=== PATIENT | female | born 1930 | race Caucasian/White ===

== ENCOUNTER 2016-08-30 14:13 | Observation (INO) ==
--- NOTE | 2016-08-30 15:09 | Emergency Department Note ---
Disposition Clinical Impression: Fracture of right clavicle Qualifiers: Encounter type: initial encounter Clavicle location: lateral end Fracture type : closed Fracture alignment: nondisplaced Qualified Code(s): S42.034A - Nondisplaced fracture of lateral end of right clavicle, initial encounter for closed fracture Fall Qualifiers: Encounter type: initial encounter Qualified Code(s): W19.XXXA - Unspecified fall, initial encounter Scalp hematoma Qualifiers: Encounter type: initial encounter Qualified Code(s): S00.03XA - Contusion of scalp, initial encounter Disposition: Admitted As Inpatient Condition: Good Fall HPI - General Chief Complaint: ED Fall Stated Complaint: fall Time Seen by Provider: 08/30/16 14:23 Source: patient, EMS Nursing Notes Reviewed: Yes Vital Signs Reviewed: Yes - History of Present Illness HPI Narrative: 85-year-old female with a history of end-stage renal disease presents to the emergency department with a chief complaint of head injury, shoulder injury after fall. Just prior to arrival she had just finished dialysis, she was walking out of the building and fell to the ground. She states she woke up on the ground and had a headache and right shoulder pain. She reports dizziness and near syncope after dialysis and always has to wait about 20-30 minutes before she leaves. She denies any preceding symptoms that she remember such as shortness of breath, chest pain or lightheadedness. Currently she states she has pain but denies any chest pain, shortness of breath, nausea, numbness or weakness in the extremities. - Related Data Home Medications Medication Instructions Recorded Confirmed Calcium Acetate [Phos-LO] 1,334 mg PO TIDWM 08/30/16 08/30/16 Calcium Carbonate [Tums] 1,000 mg PO TIDWM 08/30/16 08/30/16 Cetirizine HCl [Zyrtec] 10 mg PO DAILY 08/30/16 08/30/16 Docusate [Colace] 100 mg PO DAILY PRN 08/30/16 08/30/16 Famotidine [Pepcid] 20 mg PO DAILY 08/30/16 08/30/16 HYDROcodone/Acet 5/325 mg [[place] 1 tab PO DAILY 08/30/16 08/30/16 5-325 mg] Lidocaine Patch [Lidoderm 5% patch] 1 each TP DAILY 08/30/16 08/30/16 Loratadine [Claritin] 10 mg PO DAILY 08/30/16 08/30/16 Meclizine HCl [Verticalm] 25 mg PO TID PRN 08/30/16 08/30/16 Melatonin 5 mg PO HS 08/30/16 08/30/16 Ondansetron HCl [Zofran] 4 mg PO Q8H PRN 08/30/16 08/30/16 Pantoprazole Sodium [Protonix] 40 mg PO DAILY 08/30/16 08/30/16 Renal Vitamin [Renal Caps Softgel] 1 mg PO DAILY 08/30/16 08/30/16 Trospium Chloride 20 mg PO HS 08/30/16 08/30/16 Zinc Sulfate 220 mg PO DAILY 08/30/16 08/30/16 Allergies Allergy/AdvReac Type Severity Reaction Status Date / Time Erythromycin Base Allergy See Verified 01/07/16 17:44 Comments Penicillins Allergy See Verified 12/27/15 17:38 Comments Sulfa (Sulfonamide Allergy See Verified 01/07/16 17:44 Antibiotics) Comments All systems ED: reviewed and negative except as stated. Eyes: Denies: vision change Cardiovascular: Denies: chest pain, dyspnea on exertion Gastrointestinal: Denies: abdominal pain, nausea, vomiting Musculoskeletal: Denies: back pain, neck pain Neurological: Reports: headache. Denies: weakness, numbness Fall PMH - Past Medical History Medical history: Reports: dialysis, renal disease Psychiatric history: Reports: no psych history - Social History Smoking Status: Never smoker Alcohol use: Reports: none Drug use: Reports: none Physical Exam General: Appears well, alert and oriented x 3 Cardiovascular: Regular rate and rhythm. S1, S2. No murmurs, rubs or gallops. Neck: No midline tenderness, no step-off or deformity, pain with range of motion Respiratory: Breath sounds clear bilaterally. No wheezing, rales or rhonchi. No resp distress Abdomen: Soft, nontender. No guarding, rebound or rigidity. No bruising or signs of injury Eyes: Conjunctiva clear, pupils symmetric and reactive, no nystagmus HENT: She has a hematoma to the right frontal/temporal area. There is no overlying laceration. There is a small abrasion. No swelling around the eyes or behind the ears. No facial tenderness. Neuro: Cranial nerves intact. 5/5 upper and lower a strength throughout. She has right shoulder pain and is able to squeeze her hand and flex at the elbow was somewhat limited testing at the shoulder due to pain. Sensation is symmetric and intact bilaterally Vascular: Strong radial pulses bilaterally with normal cap refill throughout Musculoskeletal: She has prominence of the right shoulder with tenderness. No clavicular tenderness. No chest wall tenderness. No mid humerus, elbow or wrist tenderness. There is no scapular tenderness. No midline cervical or lumbar tenderness. No abrasions, ecchymosis or signs of trauma. Skin: No lesions. No diaphoresis. Normal turgor. Normal color Psych: Appropriate - General Limitations: no limitations General appearance: alert Course Vital Signs Temperature 97.9 F 08/30/16 14:18 Pulse Rate 67 08/30/16 14:18 Respiratory Rate 18 08/30/16 14:18 Blood Pressure 163/79 08/30/16 14:18 O2 Sat by Pulse Oximetry 94 08/30/16 14:18 Temperature 98 F 08/30/16 18:53 Pulse Rate 73 08/30/16 18:53 Respiratory Rate 18 08/30/16 18:53 Blood Pressure 195/82 08/30/16 18:53 O2 Sat by Pulse Oximetry 100 08/30/16 18:53 Oxygen Delivery Oxygen Delivery Room Air Fall - Lab Data Result diagrams: 08/30/16 15:24 08/30/16 15:24 - EKG Data EKG attestation: Yes I reviewed and interpreted this EKG. EKG shows normal: sinus rhythm, axis, intervals, QRS complexes, ST-T waves Rate: normal Rhythm: NSR Attestation Statement - Attestation Attestation: I examined this patient and my medical decision-making was reviewed with the PERSONAL INJURY ATTORNEY/PA/Advanced Practice Nurse/Resident Physician. I agree with the documented findings, disposition and treatment plan as described except to the extent set forth below. 85-year-old female brought to the ED because of injuries from a fall. She completed dialysis and when she tried ambulate she became lightheaded and dizzy then fell to floor. She struck her right side of her head as well as her right shoulder on the ground. She reports severe pain to the right shoulder. Complains of mild headache as well. No neck pain. Denies chest pain or dyspnea. No palpitations. Denies pain to her chest, abdomen, pelvis or lower extremities. Elderly female in no apparent distress. Appears uncomfortable. Hematoma to the right frontal parietal scalp. Oropharynx clear. Neck is nontender. Trachea midline. Chest clear to auscultation bilaterally. Abdomen soft and nontender. She does have tenderness localized to the right acromioclavicular region without palpable deformity. Chest wall is nontender. Pelvis and hips are nontender. Lower extremities unremarkable. She is found to have comminuted fracture of the distal right clavicle. CT of her head was negative. She is unable to independently maneuver or ambulate due to the clavicle fracture. She will be admitted for initiation of physical therapy, orthopedic consultation and possible placement into an extended care facility.
[2016-08-30 15:33] LABS: Basophils % 0.6 %; Eosinophils # 0.1 K/mcL (0.0-0.6); Eosinophils % 1.7 %; Hematocrit 31.3 % (35.3-44.9); Hemoglobin 10.4 g/dL (11.5-15.4); Immature Granulocytes % 0.6 % (0-4); Lymphocytes # 1.2 K/mcL (0.6-4.6); Lymphocytes % 23.9 %; Mean Corpuscular HGB Conc 33.2 g/dL (31.6-35.5); Mean Corpuscular Hemoglobin 28.7 pg (28.0-33.3); Mean Corpuscular Volume 86.5 fL (83.0-100.0); Mean Platelet Volume 10.4 fL (9.4-12.4); Monocytes # 0.6 K/mcL (0.0-1.3); Monocytes % 11.9 %; Neutrophils # 3.2 K/mcL (1.6-8.9); Platelet Count 151 K/mcL (140-400); Red Blood Count 3.62 M/mcL (3.82-4.97); Red Cell Distribution Width 14.8 % (11.5-14.5); Segmented Neutrophils % 61.3 %
[2016-08-30 15:44] LABS: Calcium 8.5 mg/dL (8.6-10.8); Potassium 3.3 mEq/L (3.5-4.5)
[2016-08-30] MEDS ORDERED: *HR* HYDROcodone/Acet 5/325 mg TABLET PO ONE (15:50)
[2016-08-30 15:56] LABS: Prothrombin Time 11.3 Seconds (9.4-12.1)
[2016-08-30] MEDS ORDERED: *HR* HYDROmorphone (PF) 1 MG/ML SYRINGE IVP ONE (17:15)
--- NOTE | 2016-08-30 19:00 | Internal Med History&Physical ---
Date of Encounter: 08/30/16 Time of Encounter: 18:55 Assessment and Plan (1) Clavicle fracture Current visit: Yes Status: Acute Mild comminuted right-sided clavicular fracture. Orthopedics has been consulted, will see the patient tomorrow. Do not anticipate any procedure or surgery at this time. pain management will follow ortho recommendations will order PT/OT Qualifiers: Encounter type: initial encounter Clavicle location: lateral end Fracture type: closed Fracture alignment: nondisplaced Laterality: right Qualified Code(s): S42.034A - Nondisplaced fracture of lateral end of right clavicle, initial encounter for closed fracture (2) ESRD (end stage renal disease) on dialysis Current visit: Yes Status: Acute had HD today. follows with DR. Cleaning. will consult renal for maintenance HD if she stays till sunday. (3) Dizziness Current visit: Yes Status: Acute dizziness post HD which is usual for her. orthostasis negative, BP stable. CT head was done that is negative no focal neuro defecits, will observe for now. (4) HTN (hypertension) Current visit: Yes Status: Acute BP noted to be high thisevening. I do not see any BP meds on the home meds list will start amlod 5 mg for now. will keep hydralazine prn. Qualifiers: Hypertension type: essential hypertension Qualified Code(s): I10 - Essential (primary) hypertension Internal Medicine - H&P: HPI Chief complaint: fall Admitted From: Home Plans for Post Hospital Care: Home History of present illness: Ms. Lynne is a 85 year old female with a history of end-stage renal disease on HD presents to the emergency department with a chief complaint of head injury, shoulder injury after fall . Just prior to arrival she had just finished dialysis, she was walking out of the building and fell to the ground. She states she woke up on the ground and had a headache and right shoulder pain. She reports dizziness and near syncope after dialysis and always has to wait about 20-30 minutes before she leaves. She denies any preceding symptoms that she remember such as shortness of breath, chest pain or lightheadedness. Currently she states she has pain but denies any chest pain, shortness of breath , nausea, numbness or weakness in the extremities. The dizziness after HD is usual for her. she follows dr. Cleaning and has M-W- F HD. she lives by herself at home and has refused HH all this time and the grand daughter at the bedside is requesting for placement as its not safe for her to stay by herself. workup at the ED shows right clavicular fracture and rt. sided hematoma. Past Med Surg Social Fam HX - Past Medical History Medical history: dialysis, renal disease Psychiatric history: no psych history - Social History Smoking Status: Never smoker Smokeless Tobacco Status: No Alcohol use: none Drug use: none Internal Medicine - H&P: Meds Calcium Acetate [Phos-LO] 1,334 mg PO TIDWM 08/30/16 [History] Calcium Carbonate [Tums] 1,000 mg PO TIDWM 08/30/16 [History] Cetirizine HCl [Zyrtec] 10 mg PO DAILY 08/30/16 [History] Docusate [Colace] 100 mg PO DAILY PRN 08/30/16 [History] Famotidine [Pepcid] 20 mg PO DAILY 08/30/16 [History] HYDROcodone/Acet 5/325 mg [[place] 5-325 mg] 1 tab PO DAILY 08/30/16 [History] Lidocaine Patch [Lidoderm 5% patch] 1 each TP DAILY 08/30/16 [History] Loratadine [Claritin] 10 mg PO DAILY 08/30/16 [History] Meclizine HCl [Verticalm] 25 mg PO TID PRN 08/30/16 [History] Melatonin 5 mg PO HS 08/30/16 [History] Ondansetron HCl [Zofran] 4 mg PO Q8H PRN 08/30/16 [History] Pantoprazole Sodium [Protonix] 40 mg PO DAILY 08/30/16 [History] Renal Vitamin [Renal Caps Softgel] 1 mg PO DAILY 08/30/16 [History] Trospium Chloride 20 mg PO HS 08/30/16 [History] Zinc Sulfate 220 mg PO DAILY 08/30/16 [History] Allergies Erythromycin Base Allergy (Verified 01/07/16 17:44) See Comments Penicillins Allergy (Verified 12/27/15 17:38) See Comments Sulfa (Sulfonamide Antibiotics) Allergy (Verified 01/07/16 17:44) See Comments All Systems PM: A 10-system review of systems was performed and is negative for pertinent findings except as documented above in the HPI. - Constitutional Constitutional: no chills, no fever(s), no night sweats - EENT Eyes: no change in vision, no discharge, no pain, no photophobia Ears: no ear discharge, no ear pain, no tinnitus Nose, mouth and throat: no dysphagia, no nasal discharge, no neck pain, no sore throat - Breasts Breasts: as per HPI - Cardiovascular Cardiovascular ROS IM: as per HPI - Respiratory Respiratory: as per HPI - Gastrointestinal Gastrointestinal: as per HPI - Genitourinary Genitourinary: as per HPI - Constitutional Vitals: Temp Pulse Resp BP Pulse Ox 98 F 73 18 195/82 100 08/30/16 18:53 08/30/16 18:53 08/30/16 18:53 08/30/16 18:53 08/30/16 18:53 General appearance: Present: A&O X 3, no acute distress Exam: neck- supple has a hematoma at the right side of the forehead, no active bleeding. chest- b/l clear, tender right side of the shoulder CVS-s1 and s2, no mr/g abd-soft, non tender, bs are present ext- no edema neuro- no focal defecits, alert and awake Internal Med - H&P Results - Labs CBC & Chem 7: 08/30/16 15:24 08/30/16 15:24
[2016-08-30] MEDS ORDERED: Naloxone 0.4 MG/ML INJ IVP PRN (19:14)
[2016-08-30] MEDS: amLODIPine 5 MG TABLET PO SCH (20:11)
[2016-08-30] MEDS: Ondansetron 4 MG/2 ML VIAL IVP PRN (20:39)
[2016-08-31] MEDS ORDERED: Acetaminophen 325 MG TABLET PO PRN (00:13)
[2016-08-31] MEDS: *HR* OxyCODONE/APAP 7.5/325 TABLET PO PRN ×3 (00:24→23:23)
[2016-08-31 04:46] LABS: Basophils % 0.5 %; Eosinophils # 0.1 K/mcL (0.0-0.6); Eosinophils % 1.4 %; Hemoglobin 10.2 g/dL (11.5-15.4); Immature Granulocytes % 0.4 % (0-4); Lymphocytes # 1.5 K/mcL (0.6-4.6); Lymphocytes % 26.6 %; Mean Corpuscular HGB Conc 31.9 g/dL (31.6-35.5); Mean Corpuscular Hemoglobin 27.9 pg (28.0-33.3); Mean Corpuscular Volume 87.7 fL (83.0-100.0); Monocytes # 0.7 K/mcL (0.0-1.3); Monocytes % 11.7 %; Neutrophils # 3.3 K/mcL (1.6-8.9); Platelet Count 162 K/mcL (140-400); Red Blood Count 3.65 M/mcL (3.82-4.97); Red Cell Distribution Width 14.7 % (11.5-14.5); Segmented Neutrophils % 59.4 %
[2016-08-31 04:55] LABS: Calcium 8.6 mg/dL (8.6-10.8); Magnesium 1.7 mg/dL (1.6-2.6); Phosphorous 5.2 mg/dL (2.3-4.7); Potassium 4.1 mEq/L (3.5-4.5)
[2016-08-31] MEDS: *HR* Heparin 5,000 UNIT/ML VIAL SQ SCH ×2 (05:48→17:05)
--- NOTE | 2016-08-31 08:55 | Orthopedic Consult Note ---
Date of Encounter: 08/31/16 Time of Encounter: 08:51 Assessment and Plan (1) Clavicle fracture Current Visit: Yes Status: Acute I did discuss the diagnosis in detail the patient. She has a right distal clavicle fracture after a fall. My recommendation was for nonoperative management in the form of a sling for comfort without a swath. My recommendation is also for physical and occupational therapy, and nonweightbearing to the right upper extremity. Follow up in 1 week at [facility] for repeat x-ray of the right shoulder. She will likely require short-term rehabilitation facility depending on how she does with therapy. I will sign off at this point will be available at any time if needed. Qualifiers: Encounter type: initial encounter Clavicle location: lateral end Fracture type: closed Fracture alignment: nondisplaced Laterality: right Qualified Code(s): S42.034A - Nondisplaced fracture of lateral end of right clavicle, initial encounter for closed fracture History of Present Illness HPI: Ms. Lynne is a 85 year old female who has end-stage renal disease on dialysis. She was admitted to the hospitalist yesterday after a fall while walking out of dialysis. It is unclear if she had a syncopal episode, though she does admit to dizziness. She did not sustain a contusion on the right side of her head as well as a nondisplaced distal clavicle fracture. I was asked to assist in the evaluation in the management of the clavicle fracture. On my evaluation the patient complains of isolated pain to the right shoulder with worsening on movement. The pain is described as sharp and significant. There is no associated numbness or tingling. No other associated signs or symptoms are modifying factors. Currently she denies any headaches. She denies any left upper extremity pain and bilateral lower extremity pain. Past Med Surg Social Fam HX - Past Medical History Medical history: dialysis, renal disease Psychiatric history: no psych history - Social History Smoking Status: Never smoker Smokeless Tobacco Status: No Alcohol use: none Drug use: none Medications and Allergies Calcium Acetate [Phos-LO] 1,334 mg PO TIDWM 08/30/16 [History] Calcium Carbonate [Tums] 1,000 mg PO TIDWM 08/30/16 [History] Cetirizine HCl [Zyrtec] 10 mg PO DAILY 08/30/16 [History] Docusate [Colace] 100 mg PO DAILY PRN 08/30/16 [History] Famotidine [Pepcid] 20 mg PO DAILY 08/30/16 [History] HYDROcodone/Acet 5/325 mg [[place] 5-325 mg] 1 tab PO DAILY 08/30/16 [History] Lidocaine Patch [Lidoderm 5% patch] 1 each TP DAILY 08/30/16 [History] Loratadine [Claritin] 10 mg PO DAILY 08/30/16 [History] Meclizine HCl [Verticalm] 25 mg PO TID PRN 08/30/16 [History] Melatonin 5 mg PO HS 08/30/16 [History] Ondansetron HCl [Zofran] 4 mg PO Q8H PRN 08/30/16 [History] Pantoprazole Sodium [Protonix] 40 mg PO DAILY 08/30/16 [History] Renal Vitamin [Renal Caps Softgel] 1 mg PO DAILY 08/30/16 [History] Trospium Chloride 20 mg PO HS 08/30/16 [History] Zinc Sulfate 220 mg PO DAILY 08/30/16 [History] Allergies Erythromycin Base Allergy (Verified 01/07/16 17:44) See Comments Penicillins Allergy (Verified 12/27/15 17:38) See Comments Sulfa (Sulfonamide Antibiotics) Allergy (Verified 01/07/16 17:44) See Comments All Systems Reviewed: Constitutional and musculoskeletal systems were reviewed and are negative unless otherwise stated in history of present illness. Physical Exam - Constitutional Vitals: Temp Pulse Resp BP Pulse Ox 98.2 F 59 16 152/52 92 08/31/16 07:42 08/31/16 07:42 08/31/16 07:42 08/31/16 07:42 08/31/16 07:42 Constitutional -Vitals reviewed -The patient is well developed and well nourished. -Mood is pleasant. -The patient is well groomed. Psychiatric -The patient is fully alert and oriented x 3. Head: -Contusion noted to the right cranial region. Respiratory: -Respiratory effort normal Abdomen: -Soft abdomen -Non tender -Non distended: Left upper extremity: -No deformities. The overlying skin is intact. No obvious signs of acute trauma. -No tenderness to palpation throughout. -No significant pain with passive motion of the shoulder, elbow, wrist, and fingers within the limits of the bed. -Able to make an "OK" sign, cross the index and long fingers, and extend the thumb. -Sensation grossly intact to light touch throughout the median, radial, and ulnar distributions. -Radial pulse is present; Fingers have good capillary refill. Right upper extremity: -No deformities. The overlying skin is intact. No obvious signs of acute trauma. -Significant tenderness to palpation over the distal clavicular region. -Distal clavicular pain with any shoulder motion. -No significant pain with passive motion of the elbow, wrist, and fingers within the limits of the bed. -Able to make an "OK" sign, cross the index and long fingers, and extend the thumb. -Sensation grossly intact to light touch throughout the median, radial, and ulnar distributions. -Radial pulse is present; Fingers have good capillary refill. Left lower extremity: -No deformities. The overlying skin is intact. No obvious signs of acute trauma. -No tenderness to palpation throughout. -No pain with passive motion of the hip, knee, ankle, and toes within the limits of the bed. -No pain with axial loading of the thigh. -Able to dorsiflex and plantarflex the ankle and toes. -Sensation is grossly intact to light touch throughout the sural, saphenous, superficial peroneal, and deep peroneal distributions. -Toes have good capillary refill. Right lower extremity: -No deformities. The overlying skin is intact. No obvious signs of acute trauma. -No tenderness to palpation throughout. -No pain with passive motion of the hip, knee, ankle, and toes within the limits of the bed. -No pain with axial loading of the thigh. -Able to dorsiflex and plantarflex the ankle and toes. -Sensation is grossly intact to light touch throughout the sural, saphenous, superficial peroneal, and deep peroneal distributions. -Toes have good capillary refill. Diagnostic Imaging: I did personally review and interpret x-rays of the right shoulder which do show a fracture of the distal clavicle without significant displacement. Results - Labs Result Diagrams: 08/31/16 03:41 08/31/16 03:41 Labs: Abnormal lab results RBC 3.65 M/mcL (3.82-4.97) L 06/01/17 03:41 Hgb 10.2 g/dL (11.5-15.4) L 08/31/16 03:41 Hct 32.0 % (35.3-44.9) L 08/31/16 03:41 MCH 27.9 pg (28.0-33.3) L 08/31/16 03:41 RDW 14.7 % (11.5-14.5) H 08/31/16 03:41 Chloride 97 mEq/L (98-109) L 08/31/16 03:41 Carbon Dioxide 34 mEq/L (19-29) H 08/31/16 03:41 BUN 28 mg/dL (7-20) H 08/31/16 03:41 Creatinine 3.96 mg/dL (0.57-1.11) H 08/31/16 03:41 Est GFR ( Amer) 13 (> 60) L 08/31/16 03:41 Est GFR (Non-Af Amer) 11 (> 60) L 08/31/16 03:41 POC Glucose 114 (58-89) H 08/30/16 14:23 Phosphorus 5.2 mg/dL (2.3-4.7) H 08/31/16 03:41 H & H 08/31/16 Range/Units 03:41 Hgb 10.2 L (11.5-15.4) g/dL Hct 32.0 L (35.3-44.9) % All other labs normal. Consult Discharge Plan - Plan Referrals: Rosa Gamez MD [Primary Care Provider] - (Web requested 08/30/16)
[2016-08-31] MEDS: amLODIPine 5 MG TABLET PO SCH (09:27)
--- NOTE | 2016-08-31 10:32 | Nephrology Consult Note ---
Date of Encounter: 08/31/16 Time of Encounter: 10:00 Assessment and Plan (1) ESRD (end stage renal disease) on dialysis Current Visit: Yes Status: Acute S/P fall with fractured right clavicle. Right head contusion, MR of head this AM , results pending. No HD today. If remains in patient, will dialyze tomorrow, keeping MWF schedule. History of Present Illness - Reason for Consult end stage renal disease - History of Present Illness Ms. Lynne is a 85 year old female with ESRD who dialyzes at [place] on MWF. Last dialysis yesterday. Other PMH-HTN. Ms. Lynne was transported to [place] from dialysis unit parking lot. She states became dizzy after dialysis and next was waking up on ground with people around her. She complained of right side head and right shoulder pain. She denied any chest pain, SOB, or numbness or weakness in extremities. Xray shows nondisplaced fracture of right clavicle. She is going this morning for MR of head and xray of right thumb/hand. Past Med Surg Social Fam HX - Past Medical History Medical history: dialysis, renal disease Psychiatric history: no psych history - Social History Smoking Status: Never smoker Smokeless Tobacco Status: No Alcohol use: none Drug use: none Medications and Allergies Calcium Acetate [Phos-LO] 1,334 mg PO TIDWM 08/30/16 [History] Calcium Carbonate [Tums] 1,000 mg PO TIDWM 08/30/16 [History] Cetirizine HCl [Zyrtec] 10 mg PO DAILY 08/30/16 [History] Docusate [Colace] 100 mg PO DAILY PRN 08/30/16 [History] Famotidine [Pepcid] 20 mg PO DAILY 08/30/16 [History] HYDROcodone/Acet 5/325 mg [[place] 5-325 mg] 1 tab PO DAILY 08/30/16 [History] Lidocaine Patch [Lidoderm 5% patch] 1 each TP DAILY 08/30/16 [History] Loratadine [Claritin] 10 mg PO DAILY 08/30/16 [History] Meclizine HCl [Verticalm] 25 mg PO TID PRN 08/30/16 [History] Melatonin 5 mg PO HS 08/30/16 [History] Ondansetron HCl [Zofran] 4 mg PO Q8H PRN 08/30/16 [History] Pantoprazole Sodium [Protonix] 40 mg PO DAILY 08/30/16 [History] Renal Vitamin [Renal Caps Softgel] 1 mg PO DAILY 08/30/16 [History] Trospium Chloride 20 mg PO HS 08/30/16 [History] Zinc Sulfate 220 mg PO DAILY 08/30/16 [History] Allergies Erythromycin Base Allergy (Verified 01/07/16 17:44) See Comments Penicillins Allergy (Verified 12/27/15 17:38) See Comments Sulfa (Sulfonamide Antibiotics) Allergy (Verified 01/07/16 17:44) See Comments Review of Systems All Systems: reviewed and no additional remarkable complaints except as stated Exam - Vital Signs Vital signs: Initial Vital Signs Temp Pulse Resp BP Pulse Ox 97.9 F 67 18 163/79 94 08/30/16 14:18 08/30/16 14:18 08/30/16 14:18 08/30/16 14:18 08/30/16 14:18 Vital Signs - Last 8 Hours Temp Pulse Resp BP Pulse Ox 08/31/16 07:42 98.2 F 59 16 152/52 92 08/31/16 03:35 98.0 F 63 16 157/78 95 Intake and Output 08/30/16 08/31/16 08/31/16 23:59 07:59 15:59 Output Total 150 / 150 Balance -150 / -150 Output: Urine 150 / 150 Other: Weight 77.1 kg 78.8 kg Patient Weight 08/31/16 23:59 Weight 78.8 kg - General Appearance General appearance: well-developed, well-nourished, appears started age EENT: mucous membranes moist Neck: no JVD Respiratory: clear Cardiology: no edema, regular rate, regular rhythm Gastrointestinal: normoactive bowel sounds, no tenderness Integumentary: warm and dry Neurologic: alert and oriented x3 Psychiatric: mood/affect appropriate, cooperative Results - Lab Results 08/31/16 03:41 08/31/16 03:41 Most recent lab results Calcium 8.6 mg/dL (8.6-10.8) 08/31/16 03:41 Phosphorus 5.2 mg/dL (2.3-4.7) H 08/31/16 03:41 Magnesium 1.7 mg/dL (1.6-2.6) 08/31/16 03:41 Consult Discharge Plan - Plan Referrals: Rosa Gamez MD [Primary Care Provider] - (Web requested 08/30/16)
[2016-08-31] MEDS: Calcium Acetate 667 MG CAPSULE PO SCH ×2 (11:55→17:06)
[2016-08-31] MEDS: *HR* Morphine 2 MG/ML SYRINGE IVP PRN (11:55)
--- NOTE | 2016-08-31 12:35 | Electrocardiograph Report ---
[place] [id number] Test Date: 2016-08-30 Pat Name: Glory Lynne Department: 102 Room: 2A23 Gender: F Manager Loan: Holly : 1930 Requested By: Sean Santana Order Number: [id number] Reading MD: Lesia Louise Measurements Intervals [place] Rate: 71 P: 30 MO: 163 QRS: 12 QRSD: 110 T: 25 QT: 476 QTc: 498 Interpretive Statements SINUS RHYTHM PROLONGED QT INTERVAL Electronically Signed On 08-31-2016 12:33:43 EDT by Lesia Louise
--- NOTE | 2016-08-31 13:23 | Orthopedics Progress Note ---
Date of Encounter: 08/31/16 Time of Encounter: 13:18 - Assessment and Plan (1) Clavicle fracture Current Visit: Yes Status: Acute I did discuss the diagnosis in detail the patient. She has a right distal clavicle fracture after a fall. My recommendation was for nonoperative management in the form of a sling for comfort without a swath. My recommendation is also for physical and occupational therapy, and nonweightbearing to the right upper extremity. Follow up in 1 week at [facility] for repeat x-ray of the right shoulder. She will likely require short-term rehabilitation facility depending on how she does with therapy. I will sign off at this point will be available at any time if needed. Qualifiers: Encounter type: initial encounter Clavicle location: lateral end Fracture type: closed Fracture alignment: nondisplaced Laterality: right Qualified Code(s): S42.034A - Nondisplaced fracture of lateral end of right clavicle, initial encounter for closed fracture Subjective Interval history: S: On secondary survey, the patient is now comlaining of right thumb pain since her fall, but not nearly as much as the right shoulder. 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 The right hand now has worse pain in the thumb metacarpophalangeal joint since the fall. She indicates that she had not noticed it since she is focused on the shoulder. O: Evaluation of the right hand does show mild swelling over the thumb. There is diffuse tenderness to palpation over the right thumb metacarpophalangeal joint. Tenderness is mostly along the ulnar aspect of this joint. The joint was not stressed. She is able to flex and extend the thumb without issue and without significant pain. The fingertips are all sensate and well-perfused. The patient can actively flex and extend all digits, extend the thumb, cross the index and long fingers, make an okay sign, and oppose the thumb. Radial artery pulses 2+. Diagnostic Imaging: I did personally review and interpret x-rays of the right hand which do show a small bony avulsion along the proximal ulnar aspect of the thumb proximal phalanx without significant displacement. Also noted is significant arthritic change. A: Avulsion from the right thumb proximal phalanx ulnar base with minimal displacement; of note she also has a nondisplaced medial distal clavicle fracture being managed nonoperatively. P: I did discuss the diagnosis in detail the patient. She does have a small evulsion fracture from the base of the right thumb proximal phalanx along the ulnar side. I did discuss treatment options including cast immobilization versus reduction and internal fixation. Given the minimal displacement, my recommendation at this point is for cast immobilization. We will place her in a short arm thumb spica cast and I will see her in the office in one week for a repeat clinical and radiographic reevaluation the check for displacement. Avoid aggressive activities with the right upper extremity. Objective Vital signs: Vital Signs Temp Pulse Resp BP Pulse Ox 08/31/16 11:44 98.0 F 66 18 156/66 100 08/31/16 07:42 98.2 F 59 16 152/52 92 08/31/16 03:35 98.0 F 63 16 157/78 95 08/30/16 23:13 98.2 F 70 18 150/69 93 08/30/16 20:23 71 179/91 08/30/16 20:12 97.6 F 76 16 190/91 94 08/30/16 18:53 98 F 73 18 195/82 100 08/30/16 18:11 18 173/83 08/30/16 17:55 71 18 173/83 96 Intake and Output 08/30/16 08/31/16 08/31/16 23:59 07:59 15:59 Intake Total 240 / 240 Output Total 150 / 150 Balance -150 / -150 240 / 240 Intake: Oral 240 / 240 Output: Urine 150 / 150 Other: Meal Lunch Percent of Meal Consumed 100% Weight 77.1 kg 78.8 kg Blood Glucose* 102 Patient Weight 08/31/16 23:59 Weight 78.8 kg - Labs CBC & BMP: 08/31/16 03:41 08/31/16 03:41 Labs: Abnormal lab results RBC 3.65 M/mcL (3.82-4.97) L 08/31/16 03:41 Hgb 10.2 g/dL (11.5-15.4) L 08/31/16 03:41 Hct 32.0 % (35.3-44.9) L 08/31/16 03:41 MCH 27.9 pg (28.0-33.3) L 08/31/16 03:41 RDW 14.7 % (11.5-14.5) H 08/31/16 03:41 Chloride 97 mEq/L (98-109) L 08/31/16 03:41 Carbon Dioxide 34 mEq/L (19-29) H 08/31/16 03:41 BUN 28 mg/dL (7-20) H 08/31/16 03:41 Creatinine 3.96 mg/dL (0.57-1.11) H 08/31/16 03:41 Est GFR ( Amer) 13 (> 60) L 08/31/16 03:41 Est GFR (Non-Af Amer) 11 (> 60) L 08/31/16 03:41 POC Glucose 102 (58-89) H 08/31/16 11:45 Phosphorus 5.2 mg/dL (2.3-4.7) H 08/31/16 03:41 Consult Discharge Plan - Plan Referrals: Rosa Gamez MD [Primary Care Provider] - 09/08/16 10:00 am (Web requested 08/30/16)
--- NOTE | 2016-08-31 16:20 | Internal Med Progress Note ---
Date of Encounter: 08/31/16 Time of Encounter: 10:16 - Assessment and plan (1) Fall Current Visit: Yes Status: Acute Assessment and plan: appears to be a mechanical fall PT eval recommends SNF Clavicle fracture and right thumb fracture: Ortho eval appreciated, supportive care, no acute surgical intervention recommended. pain control acute vision change: MRI brain shows no acute abnormality. Mental status at baseline. Neurological exam negative apart from the pupillary constriction noted on the right pupil. Will obtain neurology evaluation (will obtain MRA head and neck w/o contrast to r/o any acute aneurysm, carotid doppler) Dizziness: resolved at this time Qualifiers: Encounter type: initial encounter Qualified Code(s): W19.XXXA - Unspecified fall, initial encounter (2) Clavicle fracture Current Visit: Yes Status: Acute Qualifiers: Encounter type: initial encounter Clavicle location: lateral end Fracture type: closed Fracture alignment: nondisplaced Laterality: right Qualified Code(s): S42.034A - Nondisplaced fracture of lateral end of right clavicle, initial encounter for closed fracture (3) ESRD (end stage renal disease) on dialysis Current Visit: Yes Status: Chronic Assessment and plan: renal eval appreciated 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 started Phoslo due to hyperphosphatemia (4) HTN (hypertension) Current Visit: Yes Status: Acute Assessment and plan: noted to be hypertensive worsened secondary to pain will continue pain medications continue home meds hydralazine 10mg IVP q6h PRN SBP>160 will closely monitor Qualifiers: Hypertension type: essential hypertension Qualified Code(s): I10 - Essential (primary) hypertension (5) Fracture of right clavicle Current Visit: Yes Status: Acute Qualifiers: Encounter type: initial encounter Clavicle location: lateral end Fracture type: closed Fracture alignment: nondisplaced Qualified Code(s): S42.034A - Nondisplaced fracture of lateral end of right clavicle, initial encounter for closed fracture (6) Scalp hematoma Current Visit: Yes Status: Acute Qualifiers: Encounter type: initial encounter Qualified Code(s): S00.03XA - Contusion of scalp, initial encounter - Subjective Interval history: Patient seen and examined at bedside. Patient resting in bed and reports of acute change in her vision this morning. Reports of pain in right thumb which was injured during her fall - Constitutional Vitals: Temp Pulse Resp BP Pulse Ox 98.0 F 62 16 161/88 97 08/31/16 15:31 08/31/16 15:31 08/31/16 15:31 08/31/16 15:31 08/31/16 15:31 General appearance: Present: A&O X 3, no acute distress, obese, answers questions appropriately - Head Head exam: Present: atraumatic, normocephalic Additional comments: right frontolateral hematoma - Eye Eye exam: Present: conjuntiva pink, sclera anicteric Additional comments: pin point right pupil EOMI - Respiratory Respiratory exam: Present: CTAB. Absent: respiratory distress, wheezes - Cardiovascular Cardiovascular exam: Present: RRR, +S1, +S2. Absent: diastolic murmur, gallop, rubs, systolic murmur - GI/Abdominal GI/Abdominal exam: Present: normal bowel sounds, soft, no peritoneal signs. Absent: distended, tenderness - Extremities Exam Extremities exam: Present: warm, radial pulses palpable and symetrical. Absent : calf tenderness Additional comments: right thumb tenderness/bruising - Neurological Exam Neurological exam: Present: alert, oriented X3 - Psychiatric Psychiatric exam: Present: normal affect, normal mood Internal Medicine: Result - Labs CBC & Chem 7: 08/31/16 03:41 08/31/16 03:41 Labs: Short CBC 08/31/16 Range/Units 03:41 WBC 5.6 (4.3-11.1) K/mcL Hgb 10.2 L (11.5-15.4) g/dL Hct 32.0 L (35.3-44.9) % Plt Count 162 (140-400) K/mcL Neutrophils # 3.3 (1.6-8.9) K/mcL BMP 08/31/16 03:41 Sodium 139 Potassium 4.1 Chloride 97 L Carbon Dioxide 34 H BUN 28 H Creatinine 3.96 H Glucose 84 Calcium 8.6 - ABG Interpretation ABG results: PT/INR, D-dimer PT 11.3 Seconds (9.4-12.1) 08/30/16 15:24 - Impressions Impressions Brain MRI 08/31/16 09:31 IMPRESSION: No evidence of acute intracranial abnormality. Right frontal scalp cephalohematoma. Moderate chronic small vessel ischemic disease within the periventricular white matter. Cerebral atrophy. Right frontal sinus mucosal thickening. D/ / 08/31/2016 11:33:13 Colt Ibrahim MD / nusrat Interpreting Provider: Colt Ibrahim MD Hand X-Ray 08/31/16 10:06 IMPRESSION: 1. Avulsion fracture of the 1st proximal phalanx base along the distribution of the ulnar collateral ligament. 2. buncher hand alignment with multifocal osteoarthritis. D/ / 08/31/2016 11:34:28 Sharath Guevara MD / nusrat Interpreting Provider: Sharath Guevara MD Consult Discharge Plan - Plan Referrals: Rosa Gamez MD [Primary Care Provider] - 09/08/16 10:00 am (Web requested 08/30/16)
--- NOTE | 2016-08-31 18:29 | Neurology - Consult Note ---
Date of Encounter: 08/31/16 Time of Encounter: 18:16 Assessment and Plan (1) Blurred vision, bilateral Current Visit: Yes Status: Acute This is likely secondary to head concussion, the visual blurriness is bilateral only occurring in reading small print and occurs acutely after head concussion, this could supposedly be seen after hed concussion. The finding of smaller pupil on the right side is less obviious in dark and is of unclear clinical significance since blurred vision is bilateral. Due to history of fall and head concussion, major neurological consideration would be carotid artery dissection which can be associated with development of Luis syndrome, but as mentioned above the degree of size differences is small and this may be of no clinical significance. Other concerns obviously would be of ophthamalogical causes, and patient certainl would need ophthalmological evaluation if visual changes do not improve within next 24 hours. As discussed with primary medical team, would recommend MRA of brain and neck without contrast and carotid artery duplex, this is to essentially to assess possible carotid/vertebral artery dissection, or traumatic brain aneurysm that can cause aniscoria. Thank you very much for the consultation History of Present Illness Chief complaint: visual changes after fall and unequal pupils HPI: Ms. Lynne is a 85 year old female with PMH significant for ESRD, on hemodialysis , HTN, who developed a fall after hemodialysis yesterday, This occurred after hemodialysis and as she was walking she fell and hit her head on the right side and developed a big knot on her head. Initial CT of head showed subcutaneous hemotoma but no intracranial abnormality. Patient was found to have right clavicular fracture. no significant headaches right now. This morning/afternoon when she tried to read she noticed blurry vision which is new for her. She states that she did not notice the visual changes until she tried to read a paper on the desk. She was then found to have unequal pupiles with the right side being smaller. This appears bi-nocular on both eyes. Blurry on each eye when covering the other. No double vision. Able to count fingers no problem. MRI of brain showed no intracranial abnormality Past Med Surg Social Fam HX - Past Medical History Medical history: dialysis, renal disease Psychiatric history: no psych history - Social History Smoking Status: Never smoker Smokeless Tobacco Status: No Alcohol use: none Drug use: none Medications and Allergies Calcium Acetate [Phos-LO] 1,334 mg PO TIDWM 08/30/16 [History] Calcium Carbonate [Tums] 1,000 mg PO TIDWM 08/30/16 [History] Cetirizine HCl [Zyrtec] 10 mg PO DAILY 08/30/16 [History] Docusate [Colace] 100 mg PO DAILY PRN 08/30/16 [History] Famotidine [Pepcid] 20 mg PO DAILY 08/30/16 [History] HYDROcodone/Acet 5/325 mg [Walker 5-325 mg] 1 tab PO DAILY 08/30/16 [History] Lidocaine Patch [Lidoderm 5% patch] 1 each TP DAILY 08/30/16 [History] Loratadine [Claritin] 10 mg PO DAILY 08/30/16 [History] Meclizine HCl [Verticalm] 25 mg PO TID PRN 08/30/16 [History] Melatonin 5 mg PO HS 08/30/16 [History] Ondansetron HCl [Zofran] 4 mg PO Q8H PRN 08/30/16 [History] Pantoprazole Sodium [Protonix] 40 mg PO DAILY 08/30/16 [History] Renal Vitamin [Renal Caps Softgel] 1 mg PO DAILY 08/30/16 [History] Trospium Chloride 20 mg PO HS 08/30/16 [History] Zinc Sulfate 220 mg PO DAILY 08/30/16 [History] Allergies Erythromycin Base Allergy (Verified 01/07/16 17:44) See Comments Penicillins Allergy (Verified 12/27/15 17:38) See Comments Sulfa (Sulfonamide Antibiotics) Allergy (Verified 01/07/16 17:44) See Comments All Systems: A 10-system review of systems was performed and is negative for pertinent findings except as documented above in the HPI. Physical Examination - Vital Signs Vital Signs: Initial Vital Signs Temp Pulse Resp BP Pulse Ox 97.9 F 67 18 163/79 94 08/30/16 14:18 08/30/16 14:18 08/30/16 14:18 08/30/16 14:18 08/30/16 14:18 - Constitutional General appearance: comfortable - Neurologic Sensorimotor examination: intact Detailed motor examination: grossly full strength in all extremities Detailed sensory examination: intact Posture: other (None) Reflexes: Biceps: 1+, Triceps: 1+, Brachioradialis: 1+, Patella: 1+, Achilles: 1 + Mental Status Examination: awake, alert, oriented to person, oriented to place, oriented to time, follows commands appropriately, answers questions appropriately, no agnosia, no aphasia, no aproxia Cranial nerve examination: PERRL (Right pupil was mildly smaller than the left side, likely amplified by right eye closer to bright sunlight being closer to the window. In darkness, the size difference is small. ), EOMI (Eye movements full. No nystagmus seen. ), visual walters intact (No visual field defect noted. When cover each eye, the other eye 'blurry'), corneal reflexes brisk symmetrically, sensory to face intact, mastication intact, no facial asymmetry is present, no dysarthria, hearing is intact symmetrically, soft palate elevates bilaterally upon phonation, gag reflex intact, flexes SCM and trapezius muscles symmetrically with full power, tongue protrudes midline, no atrophy or facial fasiculations present Results - Laboratory Findings CBC and BMP: 08/31/16 03:41 08/31/16 03:41 Abnormal lab findings: Abnormal lab results RBC 3.65 M/mcL (3.82-4.97) L 08/31/16 03:41 Hgb 10.2 g/dL (11.5-15.4) L 08/31/16 03:41 Hct 32.0 % (35.3-44.9) L 08/31/16 03:41 MCH 27.9 pg (28.0-33.3) L 08/31/16 03:41 RDW 14.7 % (11.5-14.5) H 08/31/16 03:41 Chloride 97 mEq/L (98-109) L 08/31/16 03:41 Carbon Dioxide 34 mEq/L (19-29) H 08/31/16 03:41 BUN 28 mg/dL (7-20) H 08/31/16 03:41 Creatinine 3.96 mg/dL (0.57-1.11) H 08/31/16 03:41 Est GFR ( Amer) 13 (> 60) L 08/31/16 03:41 Est GFR (Non-Af Amer) 11 (> 60) L 08/31/16 03:41 POC Glucose 144 (58-89) H 08/31/16 15:35 Phosphorus 5.2 mg/dL (2.3-4.7) H 08/31/16 03:41 Consult Discharge Plan - Plan Referrals: Rosa Gamez MD [Primary Care Provider] - 09/08/16 10:00 am (Web requested 08/30/16) Darian Andujar MD [Partnered Physician] - 09/07/16 3:00 pm (Please follow up as schedule...)
[2016-09-01] MEDS: Ondansetron 4 MG/2 ML VIAL IVP PRN ×2 (03:08→14:09)
[2016-09-01] MEDS: *HR* Morphine 2 MG/ML SYRINGE IVP PRN (03:16)
[2016-09-01 04:01] LABS: Basophils % 0.6 %; Eosinophils # 0.2 K/mcL (0.0-0.6); Eosinophils % 2.6 %; Hematocrit 32.8 % (35.3-44.9); Hemoglobin 10.4 g/dL (11.5-15.4); Immature Granulocytes % 0.3 % (0-4); Lymphocytes # 1.8 K/mcL (0.6-4.6); Lymphocytes % 27.6 %; Mean Corpuscular HGB Conc 31.7 g/dL (31.6-35.5); Mean Corpuscular Hemoglobin 27.8 pg (28.0-33.3); Mean Corpuscular Volume 87.7 fL (83.0-100.0); Mean Platelet Volume 11.4 fL (9.4-12.4); Monocytes # 0.7 K/mcL (0.0-1.3); Neutrophils # 3.7 K/mcL (1.6-8.9); Platelet Count 151 K/mcL (140-400); Red Blood Count 3.74 M/mcL (3.82-4.97); Red Cell Distribution Width 14.6 % (11.5-14.5); Segmented Neutrophils % 57.9 %
[2016-09-01 04:16] LABS: Potassium 4.9 mEq/L (3.5-4.5)
[2016-09-01 04:17] LABS: Calcium 8.6 mg/dL (8.6-10.8); Magnesium 1.8 mg/dL (1.6-2.6); Phosphorous 5.8 mg/dL (2.3-4.7)
[2016-09-01] MEDS: *HR* Heparin 5,000 UNIT/ML VIAL SQ SCH ×2 (05:08→19:04)
[2016-09-01] MEDS ORDERED: 0.9 % Sodium Chloride 250 ML IVC PRN (08:08)
[2016-09-01] MEDS ORDERED: 0.9 % Sodium Chloride 1,000 ML PRIME SCH (08:15)
--- NOTE | 2016-09-01 08:39 | Nephrology Progress Note ---
Date of Encounter: 09/01/16 Time of Encounter: 08:30 - Assessment and Plan (1) ESRD (end stage renal disease) on dialysis Current Visit: Yes Status: Chronic S/P fall with fractured right clavicle. Right head contusion, MR of head no acute process. HD today, keeping MWF schedule. Orders given. Subjective Interval history: Feeding self breakfast. States pain controlled. Objective - Vital Signs Vital signs: Vital Signs Temp Pulse Resp BP Pulse Ox 09/01/16 07:20 98.2 F 74 18 152/62 95 09/01/16 03:25 97.8 F 66 18 157/73 99 08/31/16 23:48 92 08/31/16 23:27 98.0 F 61 18 174/63 98 08/31/16 18:30 98.0 F 88 18 150/71 97 08/31/16 17:33 70 157/60 08/31/16 15:31 98.0 F 62 16 161/88 97 08/31/16 11:44 98.0 F 66 18 156/66 100 Intake and Output 08/31/16 09/01/16 09/01/16 23:59 07:59 15:59 Intake Total 860 / 860 Output Total 500 / 500 Balance 360 / 360 Intake: Oral 860 / 860 Output: Urine 500 / 500 Other: Meal Dinner Percent of Meal Consumed 100% # Voids 1 Weight 78.3 kg Blood Glucose* 121 98 Patient Weight 09/01/16 23:59 Weight 78.3 kg - General Appearance General appearance: Present: well-developed, well-nourished, appears started age EENT: Present: mucous membranes moist Neck: Present: no JVD Respiratory: Present: clear Cardiology: Present: no edema, regular rate, regular rhythm Gastrointestinal: Present: normoactive bowel sounds, no tenderness Integumentary: Present: warm and dry Neurologic: Present: alert and oriented x3 Psychiatric: Present: mood/affect appropriate, cooperative - Lab 09/01/16 03:51 09/01/16 03:51 Most recent lab results Calcium 8.6 mg/dL (8.6-10.8) 09/01/16 03:51 Phosphorus 5.8 mg/dL (2.3-4.7) H 09/01/16 03:51 Magnesium 1.8 mg/dL (1.6-2.6) 09/01/16 03:51 Consult Discharge Plan - Plan Referrals: Rosa Gamez MD [Primary Care Provider] - 09/08/16 10:00 am (Web requested 08/30/16) Darian Andujar MD [Partnered Physician] - 09/07/16 3:00 pm (Please follow up as schedule...)
--- NOTE | 2016-09-01 08:56 | Orthopedics Progress Note ---
Date of Encounter: 09/01/16 Time of Encounter: 08:54 - Assessment and Plan (1) Clavicle fracture Current Visit: Yes Status: Acute I did discuss the diagnosis in detail the patient. She has a right distal clavicle fracture after a fall. My recommendation was for nonoperative management in the form of a sling for comfort without a swath. My recommendation is also for physical and occupational therapy, and nonweightbearing to the right upper extremity. Follow up in 1 week at [facility] for repeat x-ray of the right shoulder. She will likely require short-term rehabilitation facility depending on how she does with therapy. I will sign off at this point will be available at any time if needed. Qualifiers: Encounter type: initial encounter Clavicle location: lateral end Fracture type: closed Fracture alignment: nondisplaced Laterality: right Qualified Code(s): S42.034A - Nondisplaced fracture of lateral end of right clavicle, initial encounter for closed fracture Subjective Interval history: S: The patient is doing well. Pain is controlled with the right shoulder on the right thumb. A thumb spica splint was placed to the right thumb yesterday. O: Afebrile and vitals are stable. Tenderness over the right distal clavicular region. Sling is in place as well as a removable thumb spica splint. Fingertips are grossly sensate and well-perfused. A: Right distal clavicle fracture, nondisplaced as well as right thumb proximal phalanx ulnarly avulsion. P: The patient is orthopedically stable for discharge. Nonweightbearing to the right upper extremity. Physical therapy. I did instruct her to keep the thumb spica brace on at all times. I will see the patient in the office in one week for repeat set of x-rays. Objective Vital signs: Vital Signs Temp Pulse Resp BP Pulse Ox 09/01/16 07:20 98.2 F 74 18 152/62 95 09/01/16 03:25 97.8 F 66 18 157/73 99 08/31/16 23:48 92 08/31/16 23:27 98.0 F 61 18 174/63 98 08/31/16 18:30 98.0 F 88 18 150/71 97 08/31/16 17:33 70 157/60 08/31/16 15:31 98.0 F 62 16 161/88 97 08/31/16 11:44 98.0 F 66 18 156/66 100 Intake and Output 08/31/16 09/01/16 09/01/16 23:59 07:59 15:59 Intake Total 860 / 860 Output Total 500 / 500 Balance 360 / 360 Intake: Oral 860 / 860 Output: Urine 500 / 500 Other: Meal Dinner Percent of Meal Consumed 100% # Voids 1 Weight 78.3 kg Blood Glucose* 121 98 Patient Weight 09/01/16 23:59 Weight 78.3 kg - Labs CBC & BMP: 09/01/16 03:51 09/01/16 03:51 Labs: Abnormal lab results RBC 3.74 M/mcL (3.82-4.97) L 09/01/16 03:51 Hgb 10.4 g/dL (11.5-15.4) L 09/01/16 03:51 Hct 32.8 % (35.3-44.9) L 09/01/16 03:51 MCH 27.8 pg (28.0-33.3) L 09/01/16 03:51 RDW 14.6 % (11.5-14.5) H 09/01/16 03:51 Potassium 4.9 mEq/L (3.5-4.5) H 09/01/16 03:51 BUN 44 mg/dL (7-20) H D 09/01/16 03:51 Creatinine 5.85 mg/dL (0.57-1.11) H 09/01/16 03:51 Est GFR ( Amer) 8 (> 60) L 09/01/16 03:51 Est GFR (Non-Af Amer) 7 (> 60) L 09/01/16 03:51 POC Glucose 98 (58-89) H 09/01/16 07:22 Phosphorus 5.8 mg/dL (2.3-4.7) H 09/01/16 03:51 Consult Discharge Plan - Plan Referrals: Rosa Gamez MD [Primary Care Provider] - 09/08/16 10:00 am (Web requested 08/30/16) Darian Andujar MD [Partnered Physician] - 09/07/16 3:00 pm (Please follow up as schedule...)
[2016-09-01] MEDS: Calcium Acetate 667 MG CAPSULE PO SCH ×3 (09:13→18:30)
[2016-09-01] MEDS: amLODIPine 5 MG TABLET PO SCH (09:14)
--- NOTE | 2016-09-01 10:48 | Internal Med Progress Note ---
Date of Encounter: 09/01/16 Time of Encounter: 10:43 - Assessment and plan (1) Fall Current Visit: Yes Status: Acute Assessment and plan: appears to be a mechanical fall PT eval recommends SNF Clavicle fracture and right thumb fracture: Ortho eval appreciated, supportive care, no acute surgical intervention recommended. pain control acute vision change: MRI brain shows no acute abnormality. Neurological exam negative apart from the pupillary constriction noted on the right pupil. Neurology evaluation appreciated. All work up negative for any acute pathology. Ophthalmology evaluation with Dr. Sam requested. Will discontinue Oxybutynin given mental status Discharge planning initiated. Awaiting ECF placement Discontinue IV pain meds given mental status. Will closely monitor Qualifiers: Encounter type: initial encounter Qualified Code(s): W19.XXXA - Unspecified fall, initial encounter (2) Clavicle fracture Current Visit: Yes Status: Acute Qualifiers: Encounter type: initial encounter Clavicle location: lateral end Fracture type: closed Fracture alignment: nondisplaced Laterality: right Qualified Code(s): S42.034A - Nondisplaced fracture of lateral end of right clavicle, initial encounter for closed fracture (3) ESRD (end stage renal disease) on dialysis Current Visit: Yes Status: Chronic Assessment and plan: renal eval appreciated continue HD as per pipeline engineer Jackson due to hyperphosphatemia (4) HTN (hypertension) Current Visit: Yes Status: Acute Assessment and plan: BP better controlled but remains hypertensive Increased Norvasc to 10mg PO qd hydralazine 10mg IVP q6h PRN SBP>160 will closely monitor Qualifiers: Hypertension type: essential hypertension Qualified Code(s): I10 - Essential (primary) hypertension (5) Fracture of right clavicle Current Visit: Yes Status: Acute Qualifiers: Encounter type: initial encounter Clavicle location: lateral end Fracture type: closed Fracture alignment: nondisplaced Qualified Code(s): S42.034A - Nondisplaced fracture of lateral end of right clavicle, initial encounter for closed fracture (6) Scalp hematoma Current Visit: Yes Status: Acute Qualifiers: Encounter type: initial encounter Qualified Code(s): S00.03XA - Contusion of scalp, initial encounter - Subjective Interval history: Patient seen and examined at bedside. Patient resting in bed. Confused and oriented to self and place. concern for confusion secondary to narcotic pain medications. Pt able to read but continues to complain of blurry vision. PT evaluation recommended ECF social sciences research scientist evaluation noted, and d/c process initiated. - Constitutional Vitals: Temp Pulse Resp BP Pulse Ox 98.2 F 74 18 152/62 95 09/01/16 07:20 09/01/16 07:20 09/01/16 07:20 09/01/16 07:20 09/01/16 07:20 General appearance: Present: A&O X 2 (confused, oriented to self and place), no acute distress, obese, answers questions appropriately - Head Head exam: Present: atraumatic, normocephalic - Eye Eye exam: Present: normal appearance, conjuntiva pink, sclera anicteric Additional comments: constricted right pupil - Respiratory Respiratory exam: Present: CTAB. Absent: accessory muscle use, rales, rhonchi, wheezes - Cardiovascular Cardiovascular exam: Present: RRR, +S1, +S2 - GI/Abdominal GI/Abdominal exam: Present: normal bowel sounds, soft. Absent: distended, tenderness - Extremities Exam Extremities exam: Present: pedal edema (mild pedal edema ), warm, radial pulses palpable and symetrical. Absent: calf tenderness - Neurological Exam Neurological exam: Present: alert - Psychiatric Psychiatric exam: Present: normal affect, normal mood Internal Medicine: Result - Labs CBC & Chem 7: 09/01/16 03:51 09/01/16 03:51 Labs: Short CBC 09/01/16 Range/Units 03:51 WBC 6.5 (4.3-11.1) K/mcL Hgb 10.4 L (11.5-15.4) g/dL Hct 32.8 L (35.3-44.9) % Plt Count 151 (140-400) K/mcL Neutrophils # 3.7 (1.6-8.9) K/mcL BMP 09/01/16 03:51 Sodium 139 Potassium 4.9 H Chloride 98 Carbon Dioxide 29 BUN 44 H D Creatinine 5.85 H Glucose 98 Calcium 8.6 - ABG Interpretation ABG results: PT/INR, D-dimer PT 11.3 Seconds (9.4-12.1) 08/30/16 15:24 - Impressions Impressions Brain MRI 08/31/16 09:31 IMPRESSION: No evidence of acute intracranial abnormality. Right frontal scalp cephalohematoma. Moderate chronic small vessel ischemic disease within the periventricular white matter. Cerebral atrophy. Right frontal sinus mucosal thickening. D/ / 08/31/2016 11:33:13 Colt Ibrahim MD / nusrat Interpreting Provider: Colt Ibrahim MD Hand X-Ray 08/31/16 10:06 IMPRESSION: 1. Avulsion fracture of the 1st proximal phalanx base along the distribution of the ulnar collateral ligament. 2. hired hand alignment with multifocal osteoarthritis. D/ / 08/31/2016 11:34:28 Sharath Guevara MD / nusrat Interpreting Provider: Sharath Guevara MD Head MRA 08/31/16 16:28 IMPRESSION: 1. Moderate focal stenosis of the right P1/P 2 segment. 2. Otherwise, unremarkable MRA of the head. D/ / Jase Hastings MD / Jase Hastings MD Interpreting Provider: Jase Hastings MD Neck MRA 08/31/16 16:28 IMPRESSION: No convincing focal stenosis seen of the cervical carotid or vertebral arteries. D/ / Jase Hastings MD / Jase Hastings MD Interpreting Provider: Jase Hastings MD Consult Discharge Plan - Plan Referrals: Rosa Gamez MD [Primary Care Provider] - 09/08/16 10:00 am (Web requested 08/30/16) Darian Andujar MD [Partnered Physician] - 09/07/16 3:00 pm (Please follow up as schedule...)
[2016-09-01] MEDS ORDERED: *HR* OxyCODONE/APAP 5/325 TABLET PO PRN (10:50)
[2016-09-01] MEDS ORDERED: Acetaminophen 325 MG TABLET PO PRN (10:51)
[2016-09-01] MEDS ORDERED: 0.9 % Sodium Chloride 2,000 ML ONE (11:15)
[2016-09-01 11:22] LABS: Hepatitis B Surface Antibody 2.56 mIU/mL; Hepatitis B Surface Antigen Nonreactive (Nonreactive)
--- NOTE | 2016-09-01 12:15 | Neurology Progress Note ---
Date of Encounter: 09/01/16 Time of Encounter: 12:12 Assessment and Plan (1) Blurred vision, bilateral Current Visit: Yes Status: Acute This is unlikely neurological but complaints of such can be seen in patient with acute head concussion. No evidence of carotid artery/vertebro-basilar dissection. No SENIOR SITE MANAGER pathology on MRI of brain. Presence of mild aniscoria is of unknown clinical significance. Patient is to be evaluated by ophthalmology Dr Troy Sam. Will sign off at this time. Please call if any questions Subjective Principal diagnosis: blurry vision Interval history: Patient seen and examined, says that she feels bad, non-specific, likely related to right arm pain. Says that her vision is getting worse, but without glasses on she sees better, able to count fingers easily. MRA of brain and neck showed no significant carotid artery stenosis. MRA of brain showed moderate stenosis at the p1/p2 segment. This would be of no clinical significance. No evidence of carotid or vertebro-basilar dissection. Right pupil is smaller and equally reactive. No eye movements difficulty. size difference about 1mm or less Objective - Constitutional Vitals: Temp Pulse Resp BP Pulse Ox 99.0 F 70 16 155/62 96 09/01/16 10:55 09/01/16 10:55 09/01/16 10:55 09/01/16 10:55 09/01/16 10:55 - Neurological Exam Sensorimotor examination: Present: intact Motor Examination: Present: grossly full strength in all extremities Sensation intact: Present: intact Posture: Present: other (None) Mental Status Examination: Present: awake, alert, oriented to person, oriented to place, oriented to time, follows commands appropriately, answers questions appropriately, no agnosia, no aphasia, no aproxia Cranial nerve examination: Present: PERRL (Right pupil was mildly smaller than the left side, likely amplified by right eye closer to bright sunlight being closer to the window. In darkness, the size difference is small. ), EOMI (Eye movements full. No nystagmus seen. ), visual walters intact (No visual field defect noted. When cover each eye, the other eye 'blurry'), corneal reflexes brisk symmetrically, sensory to face intact, mastication intact, no facial asymmetry is present, no dysarthria, hearing is intact symmetrically, soft palate elevates bilaterally upon phonation, gag reflex intact, flexes SCM and trapezius muscles symmetrically with full power, tongue protrudes midline, no atrophy or facial fasiculations present Results - Laboratory Findings CBC and BMP: 09/01/16 03:51 09/01/16 03:51 Abnormal lab findings: Abnormal lab results RBC 3.74 M/mcL (3.82-4.97) L 09/01/16 03:51 Hgb 10.4 g/dL (11.5-15.4) L 09/01/16 03:51 Hct 32.8 % (35.3-44.9) L 09/01/16 03:51 MCH 27.8 pg (28.0-33.3) L 09/01/16 03:51 RDW 14.6 % (11.5-14.5) H 09/01/16 03:51 Potassium 4.9 mEq/L (3.5-4.5) H 09/01/16 03:51 BUN 44 mg/dL (7-20) H D 09/01/16 03:51 Creatinine 5.85 mg/dL (0.57-1.11) H 09/01/16 03:51 Est GFR ( Amer) 8 (> 60) L 09/01/16 03:51 Est GFR (Non-Af Amer) 7 (> 60) L 09/01/16 03:51 POC Glucose 108 (58-89) H 09/01/16 11:00 Phosphorus 5.8 mg/dL (2.3-4.7) H 09/01/16 03:51 Consult Discharge Plan - Plan Referrals: Rosa Gamez MD [Primary Care Provider] - 09/08/16 10:00 am (Web requested 08/30/16) Darian Andujar MD [Partnered Physician] - 09/07/16 3:00 pm (Please follow up as schedule...)
--- NOTE | 2016-09-01 15:16 | Internal Medicine Consult Note ---
Date of Encounter: 09/01/16 Time of Encounter: 15:13 - Assessment and Plan (1) Anisocoria Current Visit: Yes Status: Acute Assessment and plan: Patient should be scheduled to be seen in my office after discharge. (2) Blurred vision, bilateral Current Visit: Yes Status: Acute Assessment and plan: Patient should be scheduled to be examined in my office after discharge. Internal Medicine - CN: HPI - Data of Consult Patient: new to practice Consult date: 09/01/16 Requesting Physician: Nasima Brown MD - Consult Narrative Reason for consult: Anisocoria and blurred vision History of present illness: Ms. Lynne is a 85 year old female who was noted to have anisocoria and blurred vision. Patient reports that she has blurred vision that has been present for a couple of days. She reports that her vision is a little "fuzzy in both eyes" . Patient was unaware of having a difference in her pupil sizes. Past Med Surg Social Fam HX - Past Medical History Medical history: dialysis, renal disease Psychiatric history: no psych history - Social History Smoking Status: Never smoker Smokeless Tobacco Status: No Alcohol use: none Drug use: none Internal Medicine - CN: Meds Calcium Acetate [Phos-LO] 1,334 mg PO TIDWM 08/30/16 [History] Calcium Carbonate [Tums] 1,000 mg PO TIDWM 08/30/16 [History] Cetirizine HCl [Zyrtec] 10 mg PO DAILY 08/30/16 [History] Docusate [Colace] 100 mg PO DAILY PRN 08/30/16 [History] Famotidine [Pepcid] 20 mg PO DAILY 08/30/16 [History] HYDROcodone/Acet 5/325 mg [Gerry 5-325 mg] 1 tab PO DAILY 08/30/16 [History] Lidocaine Patch [Lidoderm 5% patch] 1 each TP DAILY 08/30/16 [History] Loratadine [Claritin] 10 mg PO DAILY 08/30/16 [History] Meclizine HCl [Verticalm] 25 mg PO TID PRN 08/30/16 [History] Melatonin 5 mg PO HS 08/30/16 [History] Ondansetron HCl [Zofran] 4 mg PO Q8H PRN 08/30/16 [History] Pantoprazole Sodium [Protonix] 40 mg PO DAILY 08/30/16 [History] Renal Vitamin [Renal Caps Softgel] 1 mg PO DAILY 08/30/16 [History] Trospium Chloride 20 mg PO HS 08/30/16 [History] Zinc Sulfate 220 mg PO DAILY 08/30/16 [History] Allergies Erythromycin Base Allergy (Verified 01/07/16 17:44) See Comments Penicillins Allergy (Verified 12/27/15 17:38) See Comments Sulfa (Sulfonamide Antibiotics) Allergy (Verified 01/07/16 17:44) See Comments Internal Medicine - CN: Exam - Constitutional Vitals: Temp Pulse Resp BP Pulse Ox 99.0 F 70 16 155/62 96 09/01/16 10:55 09/01/16 10:55 09/01/16 10:55 09/01/16 10:55 09/01/16 10:55 Exam: Examination reveals visual acuity with correction (near equivalent Snellen): 20 /40-2 right eye and 20/100+2 left eye. The pupils were round. The right pupil was small and sluggish to fixed to light. The left pupil was slightly larger and round and reactive to light. No relative afferent pupillary defects were noted. External examination revealed bruising on the right forehead and area of the right eyebrow. Otherwise, the eyelids were normal. The cornea was clear. The conjunctiva was normal in both eyes. The anterior chamber was deep and clear in both eyes. External examination revealed peripheral iridotomies in both eyes. The patient was unable to be examined at the slit-lamp as she was in dialysis at the time of the examination. She did appear to have posterior chamber intraocular lens implants in both eyes, however. Confrontation visual walters were full and and normal in both eyes. Extraocular motility was full to all cardinal positions of gaze in both eyes. Internal Medicine - CN: Reslt - Labs CBC & Chem 7: 09/01/16 03:51 09/01/16 03:51 Labs: Short CBC 09/01/16 Range/Units 03:51 WBC 6.5 (4.3-11.1) K/mcL Hgb 10.4 L (11.5-15.4) g/dL Hct 32.8 L (35.3-44.9) % Plt Count 151 (140-400) K/mcL Neutrophils # 3.7 (1.6-8.9) K/mcL BMP 09/01/16 03:51 Sodium 139 Potassium 4.9 H Chloride 98 Carbon Dioxide 29 BUN 44 H D Creatinine 5.85 H Glucose 98 Calcium 8.6 - ABG Interpretation ABG results: PT/INR, D-dimer PT 11.3 Seconds (9.4-12.1) 08/30/16 15:24 - Impressions Impressions Brain MRI 08/31/16 09:31 IMPRESSION: No evidence of acute intracranial abnormality. Right frontal scalp cephalohematoma. Moderate chronic small vessel ischemic disease within the periventricular white matter. Cerebral atrophy. Right frontal sinus mucosal thickening. D/ / 08/31/2016 11:33:13 Colt Ibrahim MD / nusrat Interpreting Provider: Colt Ibrahim MD Head MRA 08/31/16 16:28 IMPRESSION: 1. Moderate focal stenosis of the right P1/P 2 segment. 2. Otherwise, unremarkable MRA of the head. D/ / Jase Hastings MD / Jase Hastings MD Interpreting Provider: Jase Hastings MD Neck MRA 08/31/16 16:28 IMPRESSION: No convincing focal stenosis seen of the cervical carotid or vertebral arteries. D/ / Jase Hastings MD / Jase Hastings MD Interpreting Provider: Jase Hastings MD Consult Discharge Plan - Plan Referrals: Rosa Gamez MD [Primary Care Provider] - 09/08/16 10:00 am (Web requested 08/30/16) Darian Andujar MD [Partnered Physician] - 09/07/16 3:00 pm (Please follow up as schedule...)
[2016-09-01] MEDS: *HR* OxyCODONE/APAP 10/325 TABLET PO PRN (22:14)
[2016-09-02] MEDS: *HR* Heparin 5,000 UNIT/ML VIAL SQ SCH ×2 (05:11→17:10)
[2016-09-02] MEDS: *HR* OxyCODONE/APAP 10/325 TABLET PO PRN (05:12)
[2016-09-02 06:54] LABS: Basophils % 0.6 %; Eosinophils # 0.2 K/mcL (0.0-0.6); Eosinophils % 2.5 %; Hematocrit 31.5 % (35.3-44.9); Immature Granulocytes % 0.3 % (0-4); Lymphocytes # 1.7 K/mcL (0.6-4.6); Mean Corpuscular HGB Conc 31.7 g/dL (31.6-35.5); Mean Corpuscular Hemoglobin 28.2 pg (28.0-33.3); Mean Corpuscular Volume 88.7 fL (83.0-100.0); Monocytes # 0.7 K/mcL (0.0-1.3); Monocytes % 11.1 %; Platelet Count 125 K/mcL (140-400); Red Blood Count 3.55 M/mcL (3.82-4.97); Red Cell Distribution Width 14.9 % (11.5-14.5); Segmented Neutrophils % 60.5 %
[2016-09-02 07:04] LABS: Calcium 8.9 mg/dL (8.6-10.8); Magnesium 1.7 mg/dL (1.6-2.6); Phosphorous 4.8 mg/dL (2.3-4.7); Potassium 4.5 mEq/L (3.5-4.5)
[2016-09-02] MEDS: amLODIPine 5 MG TABLET PO SCH (10:00)
[2016-09-02] MEDS: Calcium Acetate 667 MG CAPSULE PO SCH ×3 (10:01→17:10)
--- NOTE | 2016-09-02 12:50 | Nephrology Progress Note ---
Date of Encounter: 09/02/16 Time of Encounter: 12:34 - Assessment and Plan (1) ESRD (end stage renal disease) Current Visit: Yes Status: Acute 1. ESRD. pt was dialyzed yesterday. Continue Sunday. Anemia of chronic disease. Hemoglobin stable at 10, resume outpatient dose of Procrit on dialysis Hyperphosphatemia, continue calcium acetate 2. HTN, BP is borderline low. Decrease amlodipine to 5 mg a day 3. Needs PT OT, noted plans for discharge to F Subjective Principal diagnosis: blurry vision Interval history: 85 yr old female with h/o HTN, ESRD admitted with a fall after dialysis. She had pain in the rt shoulder, x-ray was sig for nondisplaced fracture of right clavicle. Had contusion on the right side of the head Had stroke w/u. 2-D echo LVEF 60%, moderate diastolic dysfunction, RVSP 49. MRA brain moderate focal stenosis of the right P1 and P2 segment MRA neck was negative. MRI brain moderate chronic small vessel ischemic disease , mild atrophy c/o blurred vision since she woke up yesterday. Found to have anisocia. Seen by neurology and ophthalmology services BP borderline low, denies dizziness. Objective - Vital Signs Vital signs: Vital Signs Temp Pulse Resp BP Pulse Ox 09/02/16 11:04 98.6 F 69 18 94/50 93 09/02/16 08:06 96 09/02/16 07:19 98.5 F 72 18 100/51 96 09/02/16 04:27 98.1 F 71 18 110/62 94 09/01/16 23:37 98.3 F 76 18 106/56 95 09/01/16 20:44 98.8 F 79 18 110/64 94 09/01/16 17:40 98.6 F 16 117/54 09/01/16 17:30 118/49 09/01/16 17:15 122/56 09/01/16 17:00 120/60 09/01/16 16:45 122/58 09/01/16 16:30 114/59 09/01/16 16:15 116/53 09/01/16 16:00 116/54 09/01/16 15:45 115/55 09/01/16 15:30 115/57 09/01/16 15:15 125/58 09/01/16 15:00 117/58 09/01/16 14:45 116/57 09/01/16 14:30 98.6 F 16 121/57 Intake and Output 09/01/16 09/02/16 09/02/16 23:59 07:59 15:59 Intake Total 240 / 240 Output Total 1600 / 1600 300 / 300 Balance -1600 / -1600 -300 / -300 240 / 240 Intake: Oral 240 / 240 Output: Urine 0 / 0 300 / 300 Total Dialysis Output 1600 / 1600 Other: Meal Breakfast Percent of Meal Consumed 100% Weight 78.5 kg Blood Glucose* 98 113 108 Hemodialysis Net Fluid 1000 Removed (mL) Patient Weight 09/02/16 23:59 Weight 78.5 kg - General Appearance Exam: CVS; s1s2 present, regular, no murmurs RESP; good air entry, clear to auscultation ABD; soft, NT, BS present, EXT; no edema, AV fistula left arm has bruit - Lab 09/02/16 06:28 09/02/16 06:28 Most recent lab results Calcium 8.9 mg/dL (8.6-10.8) 09/02/16 06:28 Phosphorus 4.8 mg/dL (2.3-4.7) H 09/02/16 06:28 Magnesium 1.7 mg/dL (1.6-2.6) 09/02/16 06:28 Consult Discharge Plan - Plan Referrals: Rosa Gamez MD [Primary Care Provider] - 09/08/16 10:00 am (Web requested 08/30/16) Darian Andujar MD [Partnered Physician] - 09/07/16 3:00 pm (Please follow up as schedule...)
--- NOTE | 2016-09-02 13:09 | Internal Med Progress Note ---
Date of Encounter: 09/02/16 Time of Encounter: 13:07 - Assessment and plan (1) Fall Current Visit: Yes Status: Acute Assessment and plan: appears to be a mechanical fall PT eval recommends SNF Clavicle fracture and right thumb fracture: Ortho eval appreciated, supportive care, no acute surgical intervention recommended. pain control acute vision change: MRI brain shows no acute abnormality. Neurological exam negative apart from the pupillary constriction noted on the right pupil. Neurology evaluation appreciated. All work up negative for any acute pathology. Ophthalmology evaluation with Dr. Sam appreciated. no acute intervention at this time, outpatient follow up recommended Decreased strength of PO narcotics, pt currently pain free at this time. will closely monitor Discharge planning initiated. Awaiting ECF placement Qualifiers: Encounter type: initial encounter Qualified Code(s): W19.XXXA - Unspecified fall, initial encounter (2) Clavicle fracture Current Visit: Yes Status: Acute Qualifiers: Encounter type: initial encounter Clavicle location: lateral end Fracture type: closed Fracture alignment: nondisplaced Laterality: right Qualified Code(s): S42.034A - Nondisplaced fracture of lateral end of right clavicle, initial encounter for closed fracture (3) ESRD (end stage renal disease) on dialysis Current Visit: Yes Status: Chronic Assessment and plan: renal eval appreciated continue HD as per integrated marketing specialist Jackson due to hyperphosphatemia (4) HTN (hypertension) Current Visit: Yes Status: Acute Assessment and plan: Noted to be hypotensive this morning decreased Norvasc to 5mg PO qd hydralazine 10mg IVP q6h PRN SBP>160 will closely monitor Qualifiers: Hypertension type: essential hypertension Qualified Code(s): I10 - Essential (primary) hypertension (5) Fracture of right clavicle Current Visit: Yes Status: Acute Qualifiers: Encounter type: initial encounter Clavicle location: lateral end Fracture type: closed Fracture alignment: nondisplaced Qualified Code(s): S42.034A - Nondisplaced fracture of lateral end of right clavicle, initial encounter for closed fracture (6) Scalp hematoma Current Visit: Yes Status: Acute Qualifiers: Encounter type: initial encounter Qualified Code(s): S00.03XA - Contusion of scalp, initial encounter - Subjective Interval history: Patient seen and examined at bedside. Patient resting in bed. Pt confused about why she is in the hospital but gets oriented quickly Denies any pain at this time. States if her hand remains still then she doesn't have any pain concern for confusion secondary to narcotic pain medications, will further decrease the strength of PO narcotics Opthalmology evaluation appreciated, no acute intervention at this time. Pt to follow up with optho as outpatient blurry vision persists but not worsened Discharge pending ECF placement - Constitutional Vitals: Temp Pulse Resp BP Pulse Ox 98.6 F 69 18 94/50 93 09/02/16 11:04 09/02/16 11:04 09/02/16 11:04 09/02/16 11:04 09/02/16 11:04 General appearance: Present: A&O X 2 (confused, oriented to self and place), no acute distress, obese, answers questions appropriately - Head Head exam: Present: atraumatic, normocephalic - Eye Additional comments: unequal pupils, constricted right pupil - Respiratory Respiratory exam: Present: CTAB. Absent: accessory muscle use, rales, rhonchi, wheezes - Cardiovascular Cardiovascular exam: Present: RRR, +S1, +S2 - GI/Abdominal GI/Abdominal exam: Present: normal bowel sounds, soft, no peritoneal signs. Absent: distended, tenderness - Extremities Exam Extremities exam: Present: warm, radial pulses palpable and symetrical. Absent : calf tenderness Additional comments: RUE in sling - Neurological Exam Neurological exam: Present: alert, oriented X3 - Psychiatric Psychiatric exam: Present: normal affect, normal mood Internal Medicine: Result - Labs CBC & Chem 7: 09/02/16 06:28 09/02/16 06:28 Labs: Short CBC 09/02/16 Range/Units 06:28 WBC 6.7 (4.3-11.1) K/mcL Hgb 10.0 L (11.5-15.4) g/dL Hct 31.5 L (35.3-44.9) % Plt Count 125 L (140-400) K/mcL Neutrophils # 4.0 (1.6-8.9) K/mcL BMP 09/02/16 06:28 Sodium 138 Potassium 4.5 Chloride 100 Carbon Dioxide 30 H BUN 27 H D Creatinine 4.39 H Glucose 97 Calcium 8.9 - ABG Interpretation ABG results: PT/INR, D-dimer PT 11.3 Seconds (9.4-12.1) 08/30/16 15:24 Consult Discharge Plan - Plan Referrals: Rosa Gamez MD [Primary Care Provider] - 09/08/16 10:00 am (Web requested 08/30/16) Darian Andujar MD [Partnered Physician] - 09/07/16 3:00 pm (Please follow up as schedule...)
--- NOTE | 2016-09-02 14:56 | Carotid Imaging Report ---
Carotid Duplex Patient Name:Glory Lynne Order Number:[id number] Procedure Date:08/31/2016 Date:1930ge:85 yrs Gender:Female Lt BP:150 / 71 mmHg Rt.BP:157 / 60 mmHgHeart Rate: Location:[facility] Room #: 2A23 Home Stager:Saskia Linares Referring MD:Nasima Brown MD flight manager:Rosa Gamez MD Reading MD:Jayy Garg MD Primary Indications:r/o carotid stenosis Impressions: Findings: Bilateral carotid system is essentially normal. Recommendations: After imaging the patient returned to their room. Findings Carotid Duplex: Right: The right proximal common carotid artery has a PSV of 100 cm/s and a EDV of 15 cm/s. The right mid common carotid artery has a PSV of 68 cm/s and a EDV of 11 cm/s. The right distal common carotid artery has a PSV of 85 cm/s and a EDV of 13 cm/s. The right bifurcation has a PSV of 61 cm/s and a EDV of 9 cm/s. The right proximal internal carotid artery has a PSV of 68 cm/s and a EDV of 14 cm/s. The right mid internal carotid artery has a PSV of 72 cm/s and a EDV of 18 cm/s. The right distal internal carotid artery has a PSV of 78 cm/s and a EDV of 17 cm/s. The right eca has a PSV of 111 cm/s and a EDV of 12 cm/s. The right vertebral artery has a PSV of 48 cm/s and a EDV of 9 cm/s. Left: The left proximal common carotid artery has a PSV of 77 cm/s and a EDV of 9 cm/s. The left mid common carotid artery has a PSV of 65 cm/s and a EDV of 12 cm/s. The left distal common carotid artery has a PSV of 68 cm/s and a EDV of 10 cm/s. There is nonstenotic plaque in the left bifurcation with a PSV of 71 cm/s and a EDV of 12 cm/s. There is nonstenotic plaque in the left proximal internal carotid artery with a PSV of 87 cm/s and a EDV of 20 cm/s. The left mid internal carotid artery has a PSV of 82 cm/s and a EDV of 19 cm/s. The left distal internal carotid artery has a PSV of 81 cm/s and a EDV of 18 cm/s. The left eca has a PSV of 102 cm/s and a EDV of 9 cm/s. The left vertebral artery has a PSV of 53 cm/s and a EDV of 11 cm/s. Prior Study: No prior study available for comparison. Carotid Results Right PSV EDV Assessment Proximal CCA 100 15 Normal Mid CCA 68 11 Normal Distal CCA 85 13 Normal Bifurcation 61 9 Normal Proximal ICA 68 14 Normal Mid ICA 72 18 Normal Distal ICA 78 17 Normal ECA 111 12 Normal Vertebral Artery 48 9 Normal Left PSV EDV Assessment Proximal CCA 77 9 Normal Mid CCA 65 12 Normal Distal CCA 68 10 Normal Bifurcation 71 12 Non Stenotic Plaque Proximal ICA 87 20 Non Stenotic Plaque Mid ICA 82 19 Normal Distal ICA 81 18 Normal ECA 102 9 Normal Vertebral Artery 53 11 Normal Ratio's Right ICA/CCA Ratio: 1.15 ICA/CCA Values: 78/68 Left ICA/CCA Ratio: 1.34 ICA/CCA Values: 87/65 Updated by Jayy Garg MD on 09/02/2016 2:51:49 PM electronically signed on 09/02/2016 2:52:14 PM with status of Final
[2016-09-02] MEDS: *HR* OxyCODONE/APAP 5/325 TABLET PO PRN (19:51)
[2016-09-03 04:59] LABS: Basophils % 0.4 %; Eosinophils # 0.2 K/mcL (0.0-0.6); Eosinophils % 2.6 %; Hematocrit 29.5 % (35.3-44.9); Hemoglobin 9.3 g/dL (11.5-15.4); Immature Granulocytes % 0.4 % (0-4); Lymphocytes # 1.5 K/mcL (0.6-4.6); Lymphocytes % 20.4 %; Mean Corpuscular HGB Conc 31.5 g/dL (31.6-35.5); Mean Corpuscular Hemoglobin 27.8 pg (28.0-33.3); Mean Corpuscular Volume 88.3 fL (83.0-100.0); Mean Platelet Volume 12.8 fL (9.4-12.4); Monocytes # 0.9 K/mcL (0.0-1.3); Monocytes % 12.1 %; Neutrophils # 4.7 K/mcL (1.6-8.9); Platelet Count 133 K/mcL (140-400); Red Blood Count 3.34 M/mcL (3.82-4.97); Segmented Neutrophils % 64.1 %
[2016-09-03 05:17] LABS: Calcium 8.7 mg/dL (8.6-10.8); Magnesium 1.9 mg/dL (1.6-2.6); Phosphorous 4.6 mg/dL (2.3-4.7); Potassium 4.7 mEq/L (3.5-4.5)
[2016-09-03] MEDS: *HR* Heparin 5,000 UNIT/ML VIAL SQ SCH ×2 (05:28→17:22)
[2016-09-03] MEDS: amLODIPine 5 MG TABLET PO SCH (09:07)
[2016-09-03] MEDS: Calcium Acetate 667 MG CAPSULE PO SCH ×3 (09:09→17:20)
--- NOTE | 2016-09-03 10:56 | Internal Med Progress Note ---
Date of Encounter: 09/03/16 Time of Encounter: 10:56 - Assessment and plan (1) Fall Current Visit: Yes Status: Acute Assessment and plan: appears to be a mechanical fall PT eval recommends SNF Clavicle fracture and right thumb fracture: Ortho eval appreciated, supportive care, no acute surgical intervention recommended. pain control acute vision change: MRI brain shows no acute abnormality. Neurological exam negative apart from the pupillary constriction noted on the right pupil. Neurology evaluation appreciated. All work up negative for any acute pathology. Ophthalmology evaluation with Dr. Sam appreciated. no acute intervention at this time, outpatient follow up recommended continue current regimen for pain control Discharge planning initiated. Awaiting ECF placement Qualifiers: Encounter type: initial encounter Qualified Code(s): W19.XXXA - Unspecified fall, initial encounter (2) Clavicle fracture Current Visit: Yes Status: Acute Qualifiers: Encounter type: initial encounter Clavicle location: lateral end Fracture type: closed Fracture alignment: nondisplaced Laterality: right Qualified Code(s): S42.034A - Nondisplaced fracture of lateral end of right clavicle, initial encounter for closed fracture (3) ESRD (end stage renal disease) on dialysis Current Visit: Yes Status: Chronic Assessment and plan: renal eval appreciated continue HD as per unit control clerk Jackson due to hyperphosphatemia (4) HTN (hypertension) Current Visit: Yes Status: Acute Assessment and plan: BP within acceptable range continue current medications hydralazine 10mg IVP q6h PRN SBP>160 will closely monitor Qualifiers: Hypertension type: essential hypertension Qualified Code(s): I10 - Essential (primary) hypertension (5) Fracture of right clavicle Current Visit: Yes Status: Acute Qualifiers: Encounter type: initial encounter Clavicle location: lateral end Fracture type: closed Fracture alignment: nondisplaced Qualified Code(s): S42.034A - Nondisplaced fracture of lateral end of right clavicle, initial encounter for closed fracture (6) Scalp hematoma Current Visit: Yes Status: Acute Qualifiers: Encounter type: initial encounter Qualified Code(s): S00.03XA - Contusion of scalp, initial encounter - Subjective Interval history: Patient seen and examined at bedside. Patient resting in bed. Pt remains confused. Reported to have one time episode of foul smelling urine but patient has minimal urine output given ESRD. Pt denies any dysuria.No clinical signs of infectious etiology present. Will send UA and monitor off abx at this time. Denies any pain at this time. States if her hand remains still then she doesn't have any pain Opthalmology evaluation appreciated, no acute intervention at this time. Pt to follow up with optho as outpatient blurry vision persists but not worsened Discharge pending ECF placement - Constitutional Vitals: Temp Pulse Resp BP Pulse Ox 98.5 F 84 18 133/71 93 09/03/16 07:04 09/03/16 07:04 09/03/16 07:04 09/03/16 07:04 09/03/16 08:14 General appearance: Present: A&O X 2 (confused, oriented to self and place), no acute distress, obese, answers questions appropriately - Head Head exam: Present: atraumatic, normocephalic - Eye Eye exam: Present: normal appearance, conjuntiva pink, sclera anicteric - Respiratory Respiratory exam: Absent: respiratory distress, wheezes - Cardiovascular Cardiovascular exam: Present: RRR, +S1, +S2. Absent: diastolic murmur, gallop, rubs, systolic murmur - GI/Abdominal GI/Abdominal exam: Present: normal bowel sounds, soft, no peritoneal signs. Absent: distended, tenderness - Extremities Exam Extremities exam: Present: warm, radial pulses palpable and symetrical. Absent : calf tenderness, pedal edema - Neurological Exam Neurological exam: Present: alert Internal Medicine: Result - Labs CBC & Chem 7: 09/03/16 03:54 09/03/16 03:54 Labs: Short CBC 09/03/16 Range/Units 03:54 WBC 7.3 (4.3-11.1) K/mcL Hgb 9.3 L (11.5-15.4) g/dL Hct 29.5 L (35.3-44.9) % Plt Count 133 L (140-400) K/mcL Neutrophils # 4.7 (1.6-8.9) K/mcL BMP 09/03/16 03:54 Sodium 136 Potassium 4.7 H Chloride 98 Carbon Dioxide 28 BUN 43 H D Creatinine 5.84 H Glucose 89 Calcium 8.7 - ABG Interpretation ABG results: PT/INR, D-dimer PT 11.3 Seconds (9.4-12.1) 08/30/16 15:24 Consult Discharge Plan - Plan Referrals: Rosa Gamez MD [Primary Care Provider] - 09/08/16 10:00 am (Web requested 08/30/16) Darian Andujar MD [Partnered Physician] - 09/07/16 3:00 pm (Please follow up as schedule...)
--- NOTE | 2016-09-03 12:09 | Nephrology Progress Note ---
Date of Encounter: 09/03/16 Time of Encounter: 11:57 - Assessment and Plan (1) ESRD (end stage renal disease) Current Visit: Yes Status: Acute 1. ESRD. Plan for HD in a.m. Anemia of chronic disease. will Inquire outpatient dose of Procrit at the dialysis unit and resume the same Hyperphosphatemia, continue calcium acetate 2. HTN, BP stable, continue amlodipine 5 mg a day. 3. Confusion slightly worse today. To get UA and C&S, may have to straight catheter for a sample Subjective Principal diagnosis: blurry vision Interval history: Dose of amlodipine was decreased yesterday because of borderline low BP. BP stable last night. grand daughter and son at bed side. pt is confused, oriented to person but to place and time. received a dose of percocet yesterday. voided a small amount of foul smelling urine yesterday Objective - Vital Signs Vital signs: Vital Signs Temp Pulse Resp BP Pulse Ox 09/03/16 11:08 98.3 F 78 18 102/56 90 09/03/16 08:14 93 09/03/16 07:04 98.5 F 84 18 133/71 93 09/03/16 04:31 98.9 F 76 16 124/75 98 09/02/16 23:47 99.6 F 85 16 143/58 95 09/02/16 20:04 98.9 F 92 18 136/55 94 09/02/16 15:57 98.9 F 66 18 98/50 92 Intake and Output 09/02/16 09/03/16 09/03/16 23:59 07:59 15:59 Intake Total 290 / 290 50 / 50 120 / 120 Output Total 150 / 150 100 / 100 Balance 140 / 140 -50 / -50 120 / 120 Intake: Oral 290 / 290 50 / 50 120 / 120 Output: Urine 150 / 150 100 / 100 Other: Meal Breakfast Percent of Meal Consumed 50% # Voids 1 1 Weight 77.292 kg Blood Glucose* 100 97 117 Patient Weight 09/03/16 23:59 Weight 77.292 kg - General Appearance Exam: CVS; s1s2 present, regular, SM 2/6 prom in the rt upper sternal border RESP; good air entry, clear ABD; soft, NT, BS present EXT; 1+ edema, DP pulses palpable. - Lab 09/03/16 03:54 09/03/16 03:54 Most recent lab results Calcium 8.7 mg/dL (8.6-10.8) 09/03/16 03:54 Phosphorus 4.6 mg/dL (2.3-4.7) 09/03/16 03:54 Magnesium 1.9 mg/dL (1.6-2.6) 09/03/16 03:54 Consult Discharge Plan - Plan Referrals: Rosa Gamez MD [Primary Care Provider] - 09/08/16 10:00 am (Web requested 08/30/16) Darian Andujar MD [Partnered Physician] - 09/07/16 3:00 pm (Please follow up as schedule...)
[2016-09-03 14:28] LABS: Bilirubin,Urine Negative (Negative); Blood,Urine Negative (Negative); Clarity,Urine Cloudy (Clear); Color,Urine Yellow (Yellow); Glucose,Urine (UA) 100 mg/dL (Normal); Ketones,Urine Negative (Negative); Leukocyte Esterase,Urine Moderate (Negative); Nitrite,Urine Negative (Negative); Protein,Urine 100 mg/dL (Neg-Trace); Specific Gravity,Urine 1.012 (1.010-1.025); Urobilinogen,Urine Normal (Normal)
[2016-09-03 14:31] LABS: Bacteria,Urine Few per hpf (None-Few); Hyaline Casts,Urine None Seen per lpf (None-Few); Squamous Epithelial Cell,Urine Many per lpf (None-Few); WBC,Urine 30-50 per hpf (0-3)
[2016-09-03] MEDS: Levofloxacin 750 MG/150 ML 750 MG/150 ML BAG IVPB SCH (16:26)
[2016-09-03] MEDS: *HR* OxyCODONE/APAP 5/325 TABLET PO PRN ×2 (17:20→21:25)
[2016-09-04] MEDS: *HR* Heparin 5,000 UNIT/ML VIAL SQ SCH ×2 (05:24→17:24)
[2016-09-04 06:27] LABS: Basophils % 0.5 %; Eosinophils # 0.2 K/mcL (0.0-0.6); Eosinophils % 2.9 %; Hematocrit 28.8 % (35.3-44.9); Hemoglobin 9.3 g/dL (11.5-15.4); Immature Granulocytes % 0.5 % (0-4); Lymphocytes # 1.2 K/mcL (0.6-4.6); Lymphocytes % 17.5 %; Mean Corpuscular HGB Conc 32.3 g/dL (31.6-35.5); Mean Corpuscular Volume 86.7 fL (83.0-100.0); Mean Platelet Volume 12.5 fL (9.4-12.4); Monocytes # 0.8 K/mcL (0.0-1.3); Monocytes % 11.8 %; Neutrophils # 4.4 K/mcL (1.6-8.9); Platelet Count 119 K/mcL (140-400); Red Blood Count 3.32 M/mcL (3.82-4.97); Red Cell Distribution Width 14.9 % (11.5-14.5); Segmented Neutrophils % 66.8 %
[2016-09-04 06:34] LABS: Calcium 8.8 mg/dL (8.6-10.8); Magnesium 1.8 mg/dL (1.6-2.6); Phosphorous 5.1 mg/dL (2.3-4.7); Potassium 5.3 mEq/L (3.5-4.5)
--- NOTE | 2016-09-04 08:14 | Nephrology Progress Note ---
Date of Encounter: 09/04/16 Time of Encounter: 08:12 - Assessment and Plan (1) ESRD (end stage renal disease) on dialysis Current Visit: Yes Status: Chronic Patient will undergo dialysis today. She will be placed on Aranesp for her anemia. Going to discontinue the meclizine in case it is contributing to her worsening confusion. (2) Confusion and disorientation Current Visit: Yes Status: Acute (3) Clavicle fracture Current Visit: Yes Status: Acute Qualifiers: Encounter type: initial encounter Clavicle location: lateral end Fracture type: closed Fracture alignment: nondisplaced Laterality: right Qualified Code(s): S42.034A - Nondisplaced fracture of lateral end of right clavicle, initial encounter for closed fracture (4) Fall Current Visit: Yes Status: Acute Qualifiers: Encounter type: initial encounter Qualified Code(s): W19.XXXA - Unspecified fall, initial encounter Subjective Principal diagnosis: blurry vision Interval history: Patient remains confused. She stiffly not at her usual mental baseline. Typically the patient is oriented to place and time. She has been having markedly decreased short-term memory. She is an outpatient she had been presenting a clinical picture of possible dementia. She definitely is worse mentally now compared to how she was as an outpatient. She is scheduled for her usual dialysis today. Objective - Vital Signs Vital signs: Vital Signs Temp Pulse Resp BP Pulse Ox 09/04/16 07:51 98.4 F 73 16 112/49 95 09/04/16 04:09 98.5 F 78 18 141/60 98 09/03/16 23:41 98.5 F 88 16 122/70 96 09/03/16 19:10 98.9 F 70 16 122/90 94 09/03/16 15:40 98.6 F 82 18 131/45 91 09/03/16 11:08 98.3 F 78 18 102/56 90 09/03/16 08:14 93 Intake and Output 09/03/16 09/04/16 09/04/16 23:59 07:59 15:59 Intake Total 450 / 450 Output Total 100 / 100 300 / 300 Balance 350 / 350 -300 / -300 Intake: IV Fluids 150 / 150 Levaquin Premix 750mg/150 150 / 150 mL 750 mg In 150 ml @ 100 mls/hr IVPB DAILY [facility] Rx#:[id number] Oral 300 / 300 Output: Urine 100 / 100 300 / 300 Other: Meal pudding x2 and water # Voids 1 Weight 79.5 kg Blood Glucose* 95 89 Patient Weight 09/04/16 23:59 Weight 79.5 kg - General Appearance Exam: Patient is confused. Vital signs are stable. Lungs essentially clear to auscultation. Heart regular rate and rhythm. Abdomen is benign. There is no peripheral edema. There is a functioning AV fistula in the left arm. There is a sling in place on the right upper extremity. - Lab 09/04/16 05:52 09/04/16 05:52 Most recent lab results Calcium 8.8 mg/dL (8.6-10.8) 09/04/16 05:52 Phosphorus 5.1 mg/dL (2.3-4.7) H 09/04/16 05:52 Magnesium 1.8 mg/dL (1.6-2.6) 09/04/16 05:52 Consult Discharge Plan - Plan Referrals: Rosa Gamez MD [Primary Care Provider] - 09/08/16 10:00 am (Web requested 08/30/16) Darian Andujar MD [Partnered Physician] - 09/07/16 3:00 pm (Please follow up as schedule...)
[2016-09-04] MEDS ORDERED: 0.9 % Sodium Chloride 250 ML IVC PRN (08:15)
[2016-09-04] MEDS: Calcium Acetate 667 MG CAPSULE PO SCH ×3 (08:56→17:21)
[2016-09-04] MEDS: amLODIPine 5 MG TABLET PO SCH (08:56)
[2016-09-04] MEDS: Levofloxacin 750 MG/150 ML 750 MG/150 ML BAG IVPB SCH (09:02)
--- NOTE | 2016-09-04 11:13 | Discharge Summary ---
Date of Encounter: 09/04/16 Time of Encounter: 11:10 - Discharge Diagnosis (1) Fall Priority: Primary Status: Acute Qualifiers: Encounter type: initial encounter Qualified Code(s): W19.XXXA - Unspecified fall, initial encounter (2) Clavicle fracture Priority: Primary Status: Acute Qualifiers: Encounter type: initial encounter Clavicle location: lateral end Fracture type: closed Fracture alignment: nondisplaced Laterality: right Qualified Code(s): S42.034A - Nondisplaced fracture of lateral end of right clavicle, initial encounter for closed fracture (3) ESRD (end stage renal disease) on dialysis Priority: Secondary Status: Chronic (4) HTN (hypertension) Priority: Secondary Status: Acute Qualifiers: Hypertension type: essential hypertension Qualified Code(s): I10 - Essential (primary) hypertension (5) Fracture of right clavicle Priority: Primary Status: Acute Qualifiers: Encounter type: initial encounter Clavicle location: lateral end Fracture type: closed Fracture alignment: nondisplaced Qualified Code(s): S42.034A - Nondisplaced fracture of lateral end of right clavicle, initial encounter for closed fracture (6) Scalp hematoma Priority: Primary Status: Acute Qualifiers: Encounter type: initial encounter Qualified Code(s): S00.03XA - Contusion of scalp, initial encounter (7) Urinary tract infection Priority: Secondary Status: Acute Qualifiers: Urinary tract infection type: site unspecified Hematuria presence: without hematuria Qualified Code(s): N39.0 - Urinary tract infection, site not specified - Discharge Medications Prescriptions: HYDROcodone/Acet 5/325 mg [[place] 5-325 mg] 1 tab PO DAILY PRN #20 tablet PRN Reason: Severe Pain Home Medications: Calcium Acetate [Phos-LO] 1,334 mg PO TIDWM 08/30/16 [History] Calcium Carbonate [Tums] 1,000 mg PO TIDWM 08/30/16 [History] Cetirizine HCl [Zyrtec] 10 mg PO DAILY 08/30/16 [History] Docusate [Colace] 100 mg PO DAILY PRN 08/30/16 [History] Famotidine [Pepcid] 20 mg PO DAILY 08/30/16 [History] Lidocaine Patch [Lidoderm 5% patch] 1 each TP DAILY 08/30/16 [History] Loratadine [Claritin] 10 mg PO DAILY 08/30/16 [History] Meclizine HCl [Verticalm] 25 mg PO TID PRN 08/30/16 [History] Melatonin 5 mg PO HS 08/30/16 [History] Ondansetron HCl [Zofran] 4 mg PO Q8H PRN 08/30/16 [History] Pantoprazole Sodium [Protonix] 40 mg PO DAILY 08/30/16 [History] Renal Vitamin [Renal Caps Softgel] 1 mg PO DAILY 08/30/16 [History] Trospium Chloride 20 mg PO HS 08/30/16 [History] Zinc Sulfate 220 mg PO DAILY 08/30/16 [History] Ciprofloxacin [Cipro] 500 mg PO DAILY #3 tablet 09/04/16 [Rx] HYDROcodone/Acet 5/325 mg [[place] 5-325 mg] 1 tab PO DAILY PRN #20 tablet [Rx] amLODIPine [Norvasc] 5 mg PO DAILY tablet 09/04/16 [Rx] Allergies/Adverse Reactions: Allergies Erythromycin Base Allergy (Verified 01/07/16 17:44) See Comments Penicillins Allergy (Verified 12/27/15 17:38) See Comments Sulfa (Sulfonamide Antibiotics) Adverse Reaction (Verified 09/03/16 15:25) See Comments Itchy Date of admission: 08/30/16 17:48 Primary care physician: Rosa Gamez, Consults: 08/30/16 19:04 Consult to Nutrition [CONS] Routine Comment: Consulting Provider: NUTRITION Reason for Dietary Consult: MST Score 08/30/16 19:26 Consult to Pan Devulcanizer [CONS] Routine Reason for SW Consult: has dementia and falls, will need rehab and may need placement. 08/31/16 07:01 Consult to Occupational Therapy [CONS] Routine Comment: Evaluate, develop and implement POC Reason for Consult: please eval for poss ecf Consult to Physical Therapy [CONS] Routine Comment: Evaluate, develop and implement POC Reason for Consult: please eval for poss ecf 08/31/16 16:10 Consult to Neurology [CONS] Routine Consulting Provider: Neurology [facility] Reason for Consult: s/p fall and complaining of vision loss Call Completed: Yes 09/01/16 08:15 Consult to Dialysis [CONS] ONCE 09/01/16 09:26 Consult to Physician [CONS] Routine Consulting Provider: Troy Sam Reason for Consult: blurred vision Call Completed: Yes 09/04/16 08:15 Consult to Dialysis [CONS] ONCE 09/05/16 08:15 Consult to Dialysis [CONS] ONCE Discharging clinician: Nasima Brown Anticipated date of discharge: 09/04/16 - Patient Status Disposition: Transfer SNF Condition: Good Functional capacity at discharge: wheelchair bound - Discharge Instructions Follow Up With: Rosa Gamez MD [Primary Care Provider] - 09/08/16 10:00 am (Web requested 08/30/16) Darian Andujar MD [Partnered Physician] - 09/07/16 3:00 pm (Please follow up as schedule...) Additional Instructions: Please follow up with your primary care physician within one week after your discharge from the hospital. Please follow up with ophthalmology and orthopedic surgery within one week after your discharge from the hospital. please continue oral antibiotics as prescribed. resume all your other home medications as prescribed by your primary care physician. - Diet and Activity Activity: as per physical therapy Diet: low salt diet Hospital course: Ms. Lynne is a 85 year old female with PMH of ESRD on HD who was admitted s/p fall. Patient was found to have a scalp hematoma, clavicular fracture, thumb fracture for which orthopedic surgery was consulted. Patient was also noted to have a UTI for which she was started on IV abx. Supportive care was recommended by orthopedic surgery. She also complained of blurriness and worsening of her vision s/p fall, and ophthalmology evaluation and neurology consultation was requested. Patient's full neurological work up was negative for any aneurysm or ischemia. Ophthalmology consultation recommended outpatient follow up. Patient was evaluated by physical therapy and ECF was recommended. Patient's mental status waxes and wanes at baseline.At this time she is confused however this is her baseline. She will be discharged to ECF with follow up with ophthalmology, orthopedic surgery, and primary care physician. - Time Spent with Patient Total time spent providing and/or coordinating discharge services: Greater than 30 minutes - Constitutional Vitals: Temp Pulse Resp BP Pulse Ox 98.4 F 73 16 112/49 95 09/04/16 07:51 09/04/16 07:51 09/04/16 07:51 09/04/16 09:09 09/04/16 07:51 General appearance: Present: A&O X 2 (confused, oriented to self and place), no acute distress, obese, answers questions appropriately - Head Head exam: Present: atraumatic, normocephalic - Eye Eye exam: Present: conjuntiva pink, sclera anicteric Additional comments: unequal pupils, constricted right pupil - Respiratory Respiratory exam: Present: CTAB. Absent: respiratory distress, wheezes - Cardiovascular Cardiovascular exam: Present: RRR, +S1, +S2. Absent: diastolic murmur, gallop, rubs, systolic murmur - GI/Abdominal GI/Abdominal exam: Present: normal bowel sounds, soft, no peritoneal signs. Absent: distended, tenderness - Extremities Exam Extremities exam: Present: pedal edema, warm, radial pulses palpable and symetrical - Neurological Exam Neurological exam: Present: alert
--- NOTE | 2016-09-04 15:15 | Physician Discharge Referral ---
ExtendedCare Referral Info Transfer To: [facility] Provider in Charge after Transfer: PCP - Diagnosis (1) Fall Priority: Primary Status: Acute (2) Clavicle fracture Priority: Primary Status: Acute (3) ESRD (end stage renal disease) on dialysis Priority: Secondary Status: Chronic (4) HTN (hypertension) Priority: Secondary Status: Acute (5) Fracture of right clavicle Priority: Primary Status: Acute (6) Scalp hematoma Priority: Primary Status: Acute (7) Urinary tract infection Status: Acute - Transfer Medications Prescriptions: HYDROcodone/Acet 5/325 mg [[place] 5-325 mg] 1 tab PO DAILY PRN #20 tablet PRN Reason: Severe Pain Home Medications: Calcium Acetate [Phos-LO] 1,334 mg PO TIDWM 08/30/16 [History] Calcium Carbonate [Tums] 1,000 mg PO TIDWM 08/30/16 [History] Cetirizine HCl [Zyrtec] 10 mg PO DAILY 08/30/16 [History] Docusate [Colace] 100 mg PO DAILY PRN 08/30/16 [History] Famotidine [Pepcid] 20 mg PO DAILY 08/30/16 [History] Lidocaine Patch [Lidoderm 5% patch] 1 each TP DAILY 08/30/16 [History] Loratadine [Claritin] 10 mg PO DAILY 08/30/16 [History] Meclizine HCl [Verticalm] 25 mg PO TID PRN 08/30/16 [History] Melatonin 5 mg PO HS 08/30/16 [History] Ondansetron HCl [Zofran] 4 mg PO Q8H PRN 08/30/16 [History] Pantoprazole Sodium [Protonix] 40 mg PO DAILY 08/30/16 [History] Renal Vitamin [Renal Caps Softgel] 1 mg PO DAILY 08/30/16 [History] Trospium Chloride 20 mg PO HS 08/30/16 [History] Zinc Sulfate 220 mg PO DAILY 08/30/16 [History] Ciprofloxacin [Cipro] 500 mg PO DAILY #3 tablet 09/04/16 [Rx] HYDROcodone/Acet 5/325 mg [[place] 5-325 mg] 1 tab PO DAILY PRN #20 tablet [Rx] amLODIPine [Norvasc] 5 mg PO DAILY tablet 09/04/16 [Rx] Allergies/Adverse Reactions: Allergies Erythromycin Base Allergy (Verified 01/07/16 17:44) See Comments Penicillins Allergy (Verified 12/27/15 17:38) See Comments Sulfa (Sulfonamide Antibiotics) Adverse Reaction (Verified 09/03/16 15:25) See Comments Itchy - Respiratory Orders Smoking Cessation: Smoking cessation has been advised. For more information, call the [place] Tobacco Quit Line at 4-365-CMCM-NOW. - Rehabiliation Orders Other: Please follow up with your primary care physician within one week after your discharge from the hospital. Please follow up with ophthalmology and orthopedic surgery within one week after your discharge from the hospital. please continue oral antibiotics as prescribed. resume all your other home medications as prescribed by your primary care physician. CERTIFICATION: I certify that the transfer of the above named patient to an Extended Care Facility is necessary for the continuing treatment of the diagnosis listed. The above information is true and accurate reflection of patient's current condition. Confidential - Redisclosure prohibited without a patient's written consent.
[2016-09-04 21:35] VITALS: BP 112/77
== END 2016-09-04 22:05 ==
LOC: EMEROO 14:13 → 2ANU 14:13
PROVIDERS: ADMIT Internal Medicine Endocrinology, Diabetes & Metabolism; ATTEND Internal Medicine

== ENCOUNTER 2016-10-24 07:06 | Observation (INO) ==
[2016-10-24] MEDS ORDERED: Heparin 1,000 UNITS/500 mL NS 500 ML ONE (07:46)
[2016-10-24 07:58] LABS: Basophils % 0.4 %; Eosinophils # 0.2 K/mcL (0.0-0.6); Eosinophils % 3.1 %; Hematocrit 28.5 % (35.3-44.9); Immature Granulocytes % 0.6 % (0-4); Lymphocytes # 1.5 K/mcL (0.6-4.6); Lymphocytes % 22.2 %; Mean Corpuscular HGB Conc 31.6 g/dL (31.6-35.5); Mean Corpuscular Hemoglobin 28.1 pg (28.0-33.3); Mean Corpuscular Volume 89.1 fL (83.0-100.0); Mean Platelet Volume 10.5 fL (9.4-12.4); Monocytes # 0.6 K/mcL (0.0-1.3); Monocytes % 8.7 %; Neutrophils # 4.5 K/mcL (1.6-8.9); Platelet Count 219 K/mcL (140-400); Red Cell Distribution Width 15.7 % (11.5-14.5)
[2016-10-24 08:01] LABS: Prothrombin Time 10.6 Seconds (9.4-12.1)
[2016-10-24] MEDS ORDERED: Clindamycin 600 MG/50 ML 600 MG/50 ML IV.SOLN IVPB ONE (08:22)
--- NOTE | 2016-10-24 08:22 | History & Physical Report ---
Date of Encounter: 10/24/16 Time of Encounter: 08:21 24 Hour HP Update - Instructions Instructions: If the History and Physical is less than 30 days old and was completed prior to A.M. admission and or procedure and has NOT been updated on calendar day of procedure please complete this update prior to performing procedure. - Update Patient reports changes in Medical Condition: No Changes in examination, assessment, or condition: No Changes in Medication: No Preop tests/diagnostics Reviewed: Yes Surgery Remains Indicated: Yes Consent for Planned Operative Procedure(s) Verified: Yes - Pre-Operative Checklist Prophylactic Antibiotic Ordered: Yes
[2016-10-24] MEDS ORDERED: *HR* Heparin 5,000 UNIT/ML VIAL ONE (08:41)
[2016-10-24] MEDS ORDERED: *HR* Morphine 2 MG/ML SYRINGE IVP PRN (09:44)
[2016-10-24] MEDS ORDERED: Naloxone 0.4 MG/ML INJ IVP PRN (09:44)
[2016-10-24] MEDS ORDERED: Acetaminophen 325 MG TABLET PO PRN (09:44)
[2016-10-24] MEDS ORDERED: Ondansetron 4 MG/2 ML VIAL IVP PRN (09:44)
--- NOTE | 2016-10-24 09:50 | Internal Med History&Physical ---
Date of Encounter: 10/24/16 Time of Encounter: 09:47 Assessment and Plan (1) ESRD (end stage renal disease) on dialysis Current visit: No Status: Chronic Admit for dialysis Nephrology consulted for dialysis orders Discharge after the procedure if stable Patient takes omeprazole for GI prophylaxis subcutaneous heparin for DVT prophylaxis. She will be admitted for observation. Full code. Time spent on this admission 40 minutes (2) AV fistula thrombosis Current visit: Yes Status: Acute Qualifiers: Encounter type: sequela Qualified Code(s): T82.868S - Thrombosis due to vascular prosthetic devices, implants and grafts, sequela (3) Clavicle fracture Current visit: No Status: Acute Stable Qualifiers: Encounter type: initial encounter Clavicle location: lateral end Fracture type: closed Fracture alignment: nondisplaced Laterality: right Qualified Code(s): S42.034A - Nondisplaced fracture of lateral end of right clavicle, initial encounter for closed fracture (4) HTN (hypertension) Current visit: No Status: Acute Stable, hold blood pressure medications for dialysis Qualifiers: Hypertension type: essential hypertension Qualified Code(s): I10 - Essential (primary) hypertension (5) Confusion and disorientation Current visit: No Status: Acute Likely secondary to dementia Internal Medicine - H&P: HPI Chief complaint: Dialysis Admitted From: Direct Admit History of present illness: Ms. Lynne is a 85 year old female with a past medical history of dementia, diastolic CHF, end-stage renal disease on hemodialyses recently discharged from the hospital on 09/04/2016 where she was admitted for a right clavicular fracture, scalp hematoma and a thump fracture. Apparently the patient had an AV fistula but became thrombosed and nonfunctional. Dr. Cleaning requested the patient to be admitted in order to have a dialysis catheter placed by interventional radiology, have dialysis and then be discharged back to the nursing facility where she comes from. At the moment she is confused at times, oriented in person, remembers the month but cannot remember the year, cannot remember where she comes from. Is able to answer questions but mentions that her memory is just off. Past Med Surg Social Fam HX - Past Medical History Medical history: dialysis (End-stage renal disease on hemodialysis), GERD, hyperlipidemia, hypertension, renal disease, other (UTIs, diastolic CHF with an ejection fraction of 60%, thumb fracture, right clavicular fracture, UTI, GERD) Psychiatric history: no psych history - Past Surgical History Surgical History: other (AV fistula, cannot remember other surgical history) - Social History Smoking Status: Never smoker Smokeless Tobacco Status: No Alcohol use: none Drug use: none - Additional Family History Additional family history: Mother with a myocardial infarction Internal Medicine - H&P: Meds Calcium Acetate [Phos-LO] 1,334 mg PO TIDWM 08/30/16 [History] Calcium Carbonate [Tums] 1,000 mg PO TIDWM 08/30/16 [History] Cetirizine HCl [Zyrtec] 10 mg PO DAILY 08/30/16 [History] Docusate [Colace] 100 mg PO DAILY PRN 08/30/16 [History] Famotidine [Pepcid] 20 mg PO DAILY 08/30/16 [History] Lidocaine Patch [Lidoderm 5% patch] 1 each TP DAILY 08/30/16 [History] Loratadine [Claritin] 10 mg PO DAILY 08/30/16 [History] Meclizine HCl [Verticalm] 25 mg PO TID PRN 08/30/16 [History] Melatonin 5 mg PO HS 08/30/16 [History] Ondansetron HCl [Zofran] 4 mg PO Q8H PRN 08/30/16 [History] Pantoprazole Sodium [Protonix] 40 mg PO DAILY 08/30/16 [History] Renal Vitamin [Renal Caps Softgel] 1 mg PO DAILY 08/30/16 [History] Trospium Chloride 20 mg PO HS 08/30/16 [History] Zinc Sulfate 220 mg PO DAILY 08/30/16 [History] Ciprofloxacin [Cipro] 500 mg PO DAILY #3 tablet 09/04/16 [Rx] HYDROcodone/Acet 5/325 mg [[place] 5-325 mg] 1 tab PO DAILY PRN #20 tablet [Rx] amLODIPine [Norvasc] 5 mg PO DAILY tablet 09/04/16 [Rx] Allergies Erythromycin Base Allergy (Verified 01/07/16 17:44) See Comments Penicillins Allergy (Verified 12/27/15 17:38) See Comments Sulfa (Sulfonamide Antibiotics) Adverse Reaction (Verified 09/03/16 15:25) See Comments Itchy All Systems PM: A 10-system review of systems was performed and is negative for pertinent findings except as documented above in the HPI. Review of systems: Feels weak, other systems out of the 10 reviewed were negative. - Head Head exam: Present: atraumatic, normocephalic - Eye Eye exam: Present: PERRL, conjuntiva pink, sclera anicteric Pupils: Present: PERRL - Neck Neck exam general surgery: Present: supple, trachea midline. Absent: lymphadenopathy - Respiratory Respiratory exam: Present: CTAB. Absent: accessory muscle use, rales, rhonchi, wheezes - Cardiovascular Cardiovascular exam: Present: RRR, +S1, +S2. Absent: diastolic murmur, gallop, rubs, systolic murmur - GI/Abdominal GI/Abdominal exam: Present: distended, normal bowel sounds, soft, no peritoneal signs. Absent: tenderness - Extremities Exam Extremities exam: Present: warm, radial pulses palpable and symetrical. Absent : calf tenderness, cyanotic, pedal edema Additional comments: Right subclavian dialysis catheter in place, no hematomas or signs of infection - Neurological Exam Neurological exam: Present: CN II-XII intact, no focal deficits. Absent: oriented X3, pronater drift, facial droop, speech deficit - Skin Skin exam: Present: dry, intact Internal Med - H&P Results - Labs CBC & Chem 7: 10/24/16 07:35 Labs: Short CBC 10/24/16 Range/Units 07:35 WBC 6.9 (4.3-11.1) K/mcL Hgb 9.0 L (11.5-15.4) g/dL Hct 28.5 L (35.3-44.9) % Plt Count 219 (140-400) K/mcL Neutrophils # 4.5 (1.6-8.9) K/mcL
--- NOTE | 2016-10-24 09:57 | Discharge Summary ---
Date of Encounter: 10/24/16 Time of Encounter: 09:55 - Discharge Diagnosis (1) ESRD (end stage renal disease) on dialysis Priority: Primary Status: Chronic (2) AV fistula thrombosis Priority: Secondary Status: Acute Qualifiers: Encounter type: sequela Qualified Code(s): T82.868S - Thrombosis due to vascular prosthetic devices, implants and grafts, sequela (3) Clavicle fracture Priority: Secondary Status: Acute Qualifiers: Encounter type: initial encounter Clavicle location: lateral end Fracture type: closed Fracture alignment: nondisplaced Laterality: right Qualified Code(s): S42.034A - Nondisplaced fracture of lateral end of right clavicle, initial encounter for closed fracture (4) HTN (hypertension) Priority: Secondary Status: Acute Qualifiers: Hypertension type: essential hypertension Qualified Code(s): I10 - Essential (primary) hypertension (5) Confusion and disorientation Priority: Secondary Status: Acute - Discharge Medications Home Medications: Calcium Acetate [Phos-LO] 1,334 mg PO TIDWM 08/30/16 [History] Calcium Carbonate [Tums] 1,000 mg PO TIDWM 08/30/16 [History] Cetirizine HCl [Zyrtec] 10 mg PO DAILY 08/30/16 [History] Docusate [Colace] 100 mg PO DAILY PRN 08/30/16 [History] Famotidine [Pepcid] 20 mg PO DAILY 08/30/16 [History] Lidocaine Patch [Lidoderm 5% patch] 1 each TP DAILY 08/30/16 [History] Loratadine [Claritin] 10 mg PO DAILY 08/30/16 [History] Meclizine HCl [Verticalm] 25 mg PO TID PRN 08/30/16 [History] Melatonin 5 mg PO HS 08/30/16 [History] Ondansetron HCl [Zofran] 4 mg PO Q8H PRN 08/30/16 [History] Pantoprazole Sodium [Protonix] 40 mg PO DAILY 08/30/16 [History] Renal Vitamin [Renal Caps Softgel] 1 mg PO DAILY 08/30/16 [History] Trospium Chloride 20 mg PO HS 08/30/16 [History] Zinc Sulfate 220 mg PO DAILY 08/30/16 [History] Ciprofloxacin [Cipro] 500 mg PO DAILY #3 tablet 09/04/16 [Rx] HYDROcodone/Acet 5/325 mg [[place] 5-325 mg] 1 tab PO DAILY PRN #20 tablet [Rx] amLODIPine [Norvasc] 5 mg PO DAILY tablet 09/04/16 [Rx] Allergies/Adverse Reactions: Allergies Erythromycin Base Allergy (Verified 01/07/16 17:44) See Comments Penicillins Allergy (Verified 12/27/15 17:38) See Comments Sulfa (Sulfonamide Antibiotics) Adverse Reaction (Verified 09/03/16 15:25) See Comments Itchy Procedures/tests Complete & Pending: Procedures Performed prior 72 hours Category Date Time Status IR cvc 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 Follow with Dr. Cleaning within the next 7 days - Diet and Activity Activity: increase activity as tolerated Diet: other (Renal diet) Hospital course: Ms. Lynne is a 85 year old female with a past medical history of dementia, (End- stage renal disease on hemodialysis), GERD, hyperlipidemia, hypertension, renal disease, other (UTIs, diastolic CHF with an ejection fraction of 60%, thumb fracture, right clavicular fracture, UTI, recently discharged from the hospital on 09/04/2016 where she was admitted for a right clavicular fracture, scalp hematoma and a thump fracture. Apparently the patient had an AV fistula but became thrombosed and nonfunctional. Dr. Cleaning requested the patient to be admitted in order to have a dialysis catheter placed by interventional radiology, have dialysis and then be discharged back to the nursing facility where she comes from. At the moment she is confused at times, oriented in person, remembers the month but cannot remember the year, cannot remember where she comes from. Is able to answer questions but mentions that her memory is just "off". The patient will return to the nursing facility after having dialysis - Time Spent with Patient Total time spent providing and/or coordinating discharge services: Less than 30 minutes - Constitutional Exam: Head Head exam: Present: atraumatic, normocephalic - Eye Eye exam: Present: PERRL, conjuntiva pink, sclera anicteric Pupils: Present: PERRL - Neck Neck exam general surgery: Present: supple, trachea midline. Absent: lymphadenopathy - Respiratory Respiratory exam: Present: CTAB. Absent: accessory muscle use, rales, rhonchi, wheezes - Cardiovascular Cardiovascular exam: Present: RRR, +S1, +S2. Absent: diastolic murmur, gallop, rubs, systolic murmur - GI/Abdominal GI/Abdominal exam: Present: distended, normal bowel sounds, soft, no peritoneal signs. Absent: tenderness - Extremities Exam Extremities exam: Present: warm, radial pulses palpable and symetrical. Absent : calf tenderness, cyanotic, pedal edema Additional comments: Right subclavian dialysis catheter in place, no hematomas or signs of infection - Neurological Exam Neurological exam: Present: CN II-XII intact, no focal deficits. Absent: oriented X3, pronater drift, facial droop, speech deficit - Skin Skin exam: Present: dry, intact
[2016-10-24] MEDS ORDERED: 0.9 % Sodium Chloride 250 ML IVC PRN (10:06)
[2016-10-24] MEDS ORDERED: *HR* Heparin 10,000 UNIT/10 ML VIAL IV PRN (10:11)
[2016-10-24] MEDS ORDERED: 0.9 % Sodium Chloride 1,000 ML PRIME SCH (10:15)
[2016-10-24 11:33] LABS: Hepatitis B Surface Antigen Nonreactive (Nonreactive)
--- NOTE | 2016-10-24 14:01 | Event Note ---
Date of Encounter: 10/24/16 Time of Encounter: 13:59 This is a 85-year-old female with end-stage renal disease. Over the past several weeks she has had recurrent thrombotic episodes of her AV access. She was sent to interventional radiology this morning to have a tunnel dialysis catheter placed because of a failed AV access. Interventional radiology was unable to get the patient scheduled in a timely fashion in order for her to get her outpatient dialysis. Therefore the patient has been admitted observation to undergo dialysis here in the hospital. Dialysis orders have been provided to the acute dialysis unit. Following the patient's dialysis session she may be discharged back to the senior living. I did discuss this the hospitalist. The patient currently has a tunnel dialysis catheter placed in the right chest. There is some bruising underneath the dressing but no active bleeding currently. The patient will be dialyzed without any heparin.
[2016-10-24] MEDS ORDERED: *HR* Heparin 5,000 UNIT/ML VIAL SQ SCH (18:00)
[2016-10-24 18:44] VITALS: BP 138/69
[2016-10-25 13:44] LABS: Hepatitis B Surface Antibody 2.49 mIU/mL
== END 2016-10-24 20:45 ==
LOC: 2ANU 07:06 → INTRAD 07:06
PROVIDERS: ADMIT Internal Medicine; ATTEND Internal Medicine
PROC: IRPERMA (2016-10-24 07:30)

== ENCOUNTER 2017-05-07 09:45 | Observation (INO) ==
[2017-05-07] MEDS ORDERED: Ondansetron 4 MG/2 ML VIAL IVP ONE (10:06)
[2017-05-07] MEDS ORDERED: 0.9 % Sodium Chloride 500 ML IVC ONE (10:06)
[2017-05-07 10:40] LABS: Basophils % 0.7 %; Eosinophils # 0.2 K/mcL (0.0-0.6); Eosinophils % 3.3 %; Hematocrit 31.2 % (35.3-44.9); Hemoglobin 9.8 g/dL (11.5-15.4); Immature Granulocytes % 0.3 % (0-4); Lymphocytes # 1.3 K/mcL (0.6-4.6); Lymphocytes % 22.9 %; Mean Corpuscular HGB Conc 31.4 g/dL (31.6-35.5); Mean Corpuscular Volume 95.4 fL (83.0-100.0); Mean Platelet Volume 10.8 fL (9.4-12.4); Monocytes # 0.7 K/mcL (0.0-1.3); Monocytes % 11.9 %; Neutrophils # 3.6 K/mcL (1.6-8.9); Platelet Count 167 K/mcL (140-400); Red Blood Count 3.27 M/mcL (3.82-4.97); Red Cell Distribution Width 14.5 % (11.5-14.5); Segmented Neutrophils % 60.9 %
[2017-05-07 10:45] LABS: Prothrombin Time 10.8 Seconds (9.4-12.1)
[2017-05-07 10:48] LABS: Activated Partial Thrombo Time 28.6 Seconds (26.0-36.0)
--- NOTE | 2017-05-07 10:59 | Emergency Department Note ---
Disposition Clinical Impression: ESRD (end stage renal disease), Tremor Fall Qualifiers: Encounter type: initial encounter Qualified Code(s): W19.XXXA - Unspecified fall, initial encounter Disposition: Admitted As Inpatient Condition: Good Forms: ED Satisfaction Letter, Work/School Release Time of Disposition: 12:32 General Adult HPI - General Chief complaint: ED General Medical Stated complaint: Twitching Time Seen by Provider: 05/07/17 09:54 Source: patient, EMS Mode of arrival: ambulatory Limitations: no limitations Nursing Notes Reviewed: Yes Vital Signs Reviewed: Yes - History of Present Illness HPI Narrative: Patient presents emergency room by EMS for evaluation of twitching. Patient was being transported to dialysis. She is in a nursing facility. Patient was concerned twitching at home. She denies a traumatic injury. No new medications. She has not missed any dialysis. She denies any recent fevers or chills nausea vomiting or diarrhea. Denies any chest pain shortness of breath headache or vision change. Her main complaint is the twitching sensation of feeling like she is always cold. No other complaints or issues noted this time Onset (ago): day(s) Location: other Radiation: non-radiation Pain Severity: mild Pain Scale: 4 Consistency: intermittent Improves with: nothing Worsens with: nothing Associated symptoms: Reports: denies other symptoms Treatments Prior to Arrival: none - Related Data Home Medications Medication Instructions Recorded Confirmed Cetirizine HCl [Zyrtec] 10 mg PO DAILY 08/30/16 12/12/16 Docusate [Colace] 100 mg PO DAILY PRN 08/30/16 12/12/16 Famotidine [Pepcid] 20 mg PO DAILY 08/30/16 12/12/16 Loratadine [Claritin] 10 mg PO DAILY 08/30/16 12/12/16 Meclizine HCl [Verticalm] 25 mg PO TID PRN 08/30/16 12/12/16 Melatonin 5 mg PO HS 08/30/16 12/12/16 Ondansetron HCl [Zofran] 4 mg PO Q8H PRN 08/30/16 12/12/16 Pantoprazole Sodium [Protonix] 40 mg PO DAILY 08/30/16 12/12/16 Renal Vitamin [Renal Caps Softgel] 1 mg PO DAILY 08/30/16 12/12/16 Trospium Chloride 20 mg PO HS 08/30/16 12/12/16 Zinc Sulfate 220 mg PO DAILY 08/30/16 12/12/16 HYDROcodone/Acet 5/325 mg [Placida 1 tab PO DAILY PRN 12/12/16 12/12/16 5-325 mg] Previous Rx's Medication Instructions Recorded Acetaminophen [Tylenol] 650 mg PO Q6HR PRN #120 tab 12/14/16 Aspirin Enteric Coated [Aspirin EC] 81 mg PO DAILY #30 tab 12/14/16 Atorvastatin [Lipitor] 40 mg PO HS #30 tab 12/14/16 Allergies Allergy/AdvReac Type Severity Reaction Status Date / Time Erythromycin Base Allergy See Verified 12/18/16 06:31 Comments Penicillins Allergy See Verified 12/18/16 06:31 Comments Sulfa (Sulfonamide AdvReac See Verified 12/18/16 06:31 Antibiotics) Comments All systems ED: reviewed and negative except as stated. Review of Systems: As Per HPI Constitutional: Reports: chills. Denies: fever, weakness Eyes: Denies: eye pain, eye discharge, vision change Cardiovascular: Denies: chest pain, palpitations, dyspnea on exertion, orthopnea , edema Respiratory: Denies: cough, dyspnea, wheezes Gastrointestinal: Denies: nausea, vomiting, diarrhea, constipation Genitourinary: Denies: dysuria, frequency Musculoskeletal: Denies: back pain, neck pain Integumentary: Denies: rash Neurological: Denies: headache, weakness Endocrine: Denies: fatigue Past Medical History - Past Medical History Attestation: Yes The following information was validated with the patient. Source: patient Medical history: Reports: dialysis, GERD, hyperlipidemia, hypertension, renal disease, other Surgical history: Reports: knee replacement (Bilateral), other Psychiatric history: Reports: no psych history - Social History Smoking Status: Never smoker Smokeless Tobacco Status: No Alcohol use: Reports: none Drug use: Reports: none Physical Exam - General Limitations: no limitations General appearance: alert, in no apparent distress - Head Head exam: atraumatic, normocephalic, normal inspection - Eye Eye exam: Present: normal appearance, PERRL, EOMI. Absent: miosis, mydriasis - ENT ENT exam: normal exam, normal oropharynx, mucous membranes moist - Neck Neck exam: Present: normal inspection, full ROM, trachea midline. Absent: tenderness, meningismus, lymphadenopathy - Chest Chest inspection: Present: normal inspection, symmetric chest wall rise. Absent : tenderness - Respiratory Respiratory exam: Present: normal lung sounds bilaterally - Cardiovascular Cardiovascular exam: Present: regular rate, normal rhythm, normal heart sounds - Abdominal Exam Abdominal exam: Present: soft, Non-Tender. Absent: tenderness, distention, guarding, rebound, rigidity - Extremities Exam Extremities exam: Present: normal inspection, full ROM, normal capillary refill. Absent: tenderness - Back Exam Back exam: Present: normal inspection, full ROM. Absent: tenderness - Neurological Exam Neurological exam: Present: alert, oriented X3, CN II-XII intact, normal gait - Skin Skin exam: Present: warm, dry, intact, normal color Course Course Narrative: 86-year-old female seen and examined the time of arrival. See history of present illness. Patient presents emergency room by EMS for evaluation of tremors. Patient is notices a lot of malaise. She denies any fevers or chills nausea vomiting diarrhea. Has a headache vision changes chest pain or shortness of breath. Patient is known renal insufficiency and does require dialysis on Sunday. Patient currently denying any trauma or injury. According to the patient she says that she fell this morning but EMS disclosed that the nursing staff was withdrawn morning she did not fall. Patient is alert she is oriented she speaks in full sentences she has no acute signs of neurologic deficit or trauma. Head is atraumatic. Her lungs are clear heart is regular abdomen is soft no guarding or rigidity. Patient moves all 4 extremities without difficulty this time. She has no significant signs of pitting edema or coarse breath sounds on exam. Pulses are intact. Left upper extremity as well as fistulas in place for her dialysis. Patient is scheduled for dialysis today. She does not overtly seemingly she is a little below time. Patient will have further workup and evaluation including CT of the head and neck along with labs including infectious etiology evaluation troponin and EKG. Dispositional be determined once all the electrolytes are reviewed and established. Patient has intermittent tremors but does not have any acute signs of seizure-like activity or neurologic deficit. Unknown etiology at this time. Patient does not focally localize she has an infection this point based on physical exam vital signs but we will continue to monitor and treat accordingly. Disposition pending workup and treatment course - Reevaluation(s) Reevaluation #1: Labs appear to be unremarkable this time. Patient has stable creatinine and BUNs. Patient does have some moderate congestion on chest x-ray and elevated BNP. Patient has had some shortness of breath at home along with his tremor- like sensation. There is no R abnormality to account for the tremors. CT of the head is otherwise unremarkable as well. Patient will be discussed with the on-call contemporary or modern dancer as well as possible recommendation for admission secondary to the tremors of unknown etiology this time. Patient is a portable plan. Disposition pending the consultations. Patient is concerned and uncomfortable going home at this time was to have the tremors evaluated. Consultation is placed with a neurologist and admission process will be completed. Patient consult with the neurologist Dr. haney. Further recommendations from them at this time per patient will be admitted for symptomatic control and possible inpatient evaluation for the tremors. Clinical suspicion for neurologic deficit or issues at this time. Hospitalist was patient this time for admission Time: 12:04 Reevaluation #2: Pt was discussed with nephrology and neurology for evaluation. no other recommendations from either group. Patient was discussed with the hospitalist Dr. leone. Review the presentation symptoms of medical issues. Patient will be admitted for evaluation of the tremors and dialysis. No other concerns or issues noted this time Vital Signs Temperature 98.3 F 05/07/17 09:46 Pulse Rate 77 05/07/17 09:46 Respiratory Rate 14 05/07/17 09:46 Blood Pressure 160/67 05/07/17 09:46 O2 Sat by Pulse Oximetry 98 05/07/17 09:46 Temperature 98.3 F 05/07/17 09:46 Pulse Rate 76 05/07/17 11:38 Respiratory Rate 22 05/07/17 11:38 Blood Pressure 140/57 05/07/17 11:38 O2 Sat by Pulse Oximetry 97 05/07/17 11:38 Oxygen Delivery Oxygen Delivery Room Air Medical Decision Making - MDM Narrative Medical decision making narrative: Tremors, dialysis, - Medical Records Medical records reviewed: Yes I reviewed the patient's medical records. - Lab Data Lab results reviewed: Yes I reviewed the patient's lab results. Result diagrams: 05/07/17 10:26 05/07/17 10:26 Lab Results 05/07/17 05/07/17 05/07/17 Range/Units 10:26 10:26 10:26 WBC 5.8 (4.3-11.1) K/mcL RBC 3.27 L (3.82-4.97) M/mcL Hgb 9.8 L (11.5-15.4) g/dL Hct 31.2 L (35.3-44.9) % MCV 95.4 (83.0-100.0) fL MCH 30.0 (28.0-33.3) pg MCHC 31.4 L (31.6-35.5) g/dL RDW 14.5 (11.5-14.5) % Plt Count 167 (140-400) K/mcL MPV 10.8 (9.4-12.4) fL Immature Gran % 0.3 (0-4) % Seg Neutrophils % 60.9 % Lymphocytes % 22.9 % Monocytes % 11.9 % Eosinophils % 3.3 % Basophils % 0.7 % Neutrophils # 3.6 (1.6-8.9) K/mcL Lymphocytes # 1.3 (0.6-4.6) K/mcL Monocytes # 0.7 (0.0-1.3) K/mcL Eosinophils # 0.2 (0.0-0.6) K/mcL Basophils # 0.0 (0.0-0.2) K/mcL PT 10.8 (9.4-12.1) Seconds INR 1.0 APTT 28.6 (26.0-36.0) Seconds Sodium 139 (136-145) mEq/L Potassium 4.8 (3.5-5.1) mEq/L Chloride 98 (98-107) mEq/L Carbon Dioxide 30 H (23-29) mEq/L BUN 53 H (8-23) mg/dL Creatinine 7.76 H (0.60-1.20) mg/dL Est GFR ( Amer) 6 L (> 60) Est GFR (Non-Af Amer) 5 L (> 60) BUN/Creatinine Ratio 7 (6-26) Glucose 94 (70-105) mg/dL Calculated Osmolality 302 H (280-300) Lactic Acid (0.5-2.2) mmol/L Calcium 8.1 L (8.6-10.3) mg/dL Phosphorus 6.4 H (2.7-4.5) mg/dL Magnesium 2.2 (1.6-2.6) mg/dL Total Bilirubin 0.5 (0.3-1.0) mg/dL Direct Bilirubin 0.1 (0.0-0.2) mg/dL Indirect Bilirubin 0.4 (0.0-1.2) mg/dL AST 17 (13-39) Units/L ALT 9 (7-52) Units/L Alkaline Phosphatase 90 (34-104) Units/L Troponin I (< 0.04) ng/mL B-Natriuretic Peptide (Less than 100) pg/mL Serum Total Protein 6.1 L (6.4-8.9) g/dL Albumin 3.1 L (3.5-5.7) g/dL Globulin 3.0 (2.4-3.5) g/dL Albumin/Globulin Ratio 1.0 L (1.1-2.2) Urine Color (Yellow) Urine Clarity (Clear) Urine pH (5.0-8.0) pH Units Ur Specific [place] (1.010-1.025) Urine Protein (Neg-Trace) mg/dL Urine Glucose (UA) (Normal) mg/dL Urine Ketones (Negative) mg/dL Urine Blood (Negative) Urine Nitrite (Negative) Urine Bilirubin (Negative) Urine Urobilinogen (Normal) mg/dL Ur Leukocyte Esterase (Negative) Urine Microscopic RBC (0-3) per hpf Urine Microscopic WBC (0-3) per hpf Ur Squamous Epith Cells (None-Few) per lpf Urine Bacteria (None-Few) per hpf Hyaline Casts (None-Few) per lpf Ur Culture Indicated? (NO) 05/07/17 05/07/17 05/07/17 Range/Units 10:26 10:26 10:26 WBC (4.3-11.1) K/mcL RBC (3.82-4.97) M/mcL Hgb (11.5-15.4) g/dL Hct (35.3-44.9) % MCV (83.0-100.0) fL MCH (28.0-33.3) pg MCHC (31.6-35.5) g/dL RDW (11.5-14.5) % Plt Count (140-400) K/mcL MPV (9.4-12.4) fL Immature Gran % (0-4) % Seg Neutrophils % % Lymphocytes % % Monocytes % % Eosinophils % % Basophils % % Neutrophils # (1.6-8.9) K/mcL Lymphocytes # (0.6-4.6) K/mcL Monocytes # (0.0-1.3) K/mcL Eosinophils # (0.0-0.6) K/mcL Basophils # (0.0-0.2) K/mcL PT (9.4-12.1) Seconds INR APTT (26.0-36.0) Seconds Sodium (136-145) mEq/L Potassium (3.5-5.1) mEq/L Chloride (98-107) mEq/L Carbon Dioxide (23-29) mEq/L BUN (8-23) mg/dL Creatinine (0.60-1.20) mg/dL Est GFR ( Amer) (> 60) Est GFR (Non-Af Amer) (> 60) BUN/Creatinine Ratio (6-26) Glucose (70-105) mg/dL Calculated Osmolality (280-300) Lactic Acid 1.3 (0.5-2.2) mmol/L Calcium (8.6-10.3) mg/dL Phosphorus (2.7-4.5) mg/dL Magnesium (1.6-2.6) mg/dL Total Bilirubin (0.3-1.0) mg/dL Direct Bilirubin (0.0-0.2) mg/dL Indirect Bilirubin (0.0-1.2) mg/dL AST (13-39) Units/L ALT (7-52) Units/L Alkaline Phosphatase (34-104) Units/L Troponin I < 0.03 (< 0.04) ng/mL B-Natriuretic Peptide 229 H (Less than 100) pg/mL Serum Total Protein (6.4-8.9) g/dL Albumin (3.5-5.7) g/dL Globulin (2.4-3.5) g/dL Albumin/Globulin Ratio (1.1-2.2) Urine Color (Yellow) Urine Clarity (Clear) Urine pH (5.0-8.0) pH Units Ur Specific [place] (1.010-1.025) Urine Protein (Neg-Trace) mg/dL Urine Glucose (UA) (Normal) mg/dL Urine Ketones (Negative) mg/dL Urine Blood (Negative) Urine Nitrite (Negative) Urine Bilirubin (Negative) Urine Urobilinogen (Normal) mg/dL Ur Leukocyte Esterase (Negative) Urine Microscopic RBC (0-3) per hpf Urine Microscopic WBC (0-3) per hpf Ur Squamous Epith Cells (None-Few) per lpf Urine Bacteria (None-Few) per hpf Hyaline Casts (None-Few) per lpf Ur Culture Indicated? (NO) 05/07/17 Range/Units 11:34 WBC (4.3-11.1) K/mcL RBC (3.82-4.97) M/mcL Hgb (11.5-15.4) g/dL Hct (35.3-44.9) % MCV (83.0-100.0) fL MCH (28.0-33.3) pg MCHC (31.6-35.5) g/dL RDW (11.5-14.5) % Plt Count (140-400) K/mcL MPV (9.4-12.4) fL Immature Gran % (0-4) % Seg Neutrophils % % Lymphocytes % % Monocytes % % Eosinophils % % Basophils % % Neutrophils # (1.6-8.9) K/mcL Lymphocytes # (0.6-4.6) K/mcL Monocytes # (0.0-1.3) K/mcL Eosinophils # (0.0-0.6) K/mcL Basophils # (0.0-0.2) K/mcL PT (9.4-12.1) Seconds INR APTT (26.0-36.0) Seconds Sodium (136-145) mEq/L Potassium (3.5-5.1) mEq/L Chloride (98-107) mEq/L Carbon Dioxide (23-29) mEq/L BUN (8-23) mg/dL Creatinine (0.60-1.20) mg/dL Est GFR ( Amer) (> 60) Est GFR (Non-Af Amer) (> 60) BUN/Creatinine Ratio (6-26) Glucose (70-105) mg/dL Calculated Osmolality (280-300) Lactic Acid (0.5-2.2) mmol/L Calcium (8.6-10.3) mg/dL Phosphorus (2.7-4.5) mg/dL Magnesium (1.6-2.6) mg/dL Total Bilirubin (0.3-1.0) mg/dL Direct Bilirubin (0.0-0.2) mg/dL Indirect Bilirubin (0.0-1.2) mg/dL AST (13-39) Units/L ALT (7-52) Units/L Alkaline Phosphatase (34-104) Units/L Troponin I (< 0.04) ng/mL B-Natriuretic Peptide (Less than 100) pg/mL Serum Total Protein (6.4-8.9) g/dL Albumin (3.5-5.7) g/dL Globulin (2.4-3.5) g/dL Albumin/Globulin Ratio (1.1-2.2) Urine Color Yellow (Yellow) Urine Clarity Clear (Clear) Urine pH 8.5 H (5.0-8.0) pH Units Ur Specific [place] 1.011 (1.010-1.025) Urine Protein 30 H (Neg-Trace) mg/dL Urine Glucose (UA) 100 H (Normal) mg/dL Urine Ketones Negative (Negative) mg/dL Urine Blood Negative (Negative) Urine Nitrite Negative (Negative) Urine Bilirubin Negative (Negative) Urine Urobilinogen Normal (Normal) mg/dL Ur Leukocyte Esterase Negative (Negative) Urine Microscopic RBC 0-3 (0-3) per hpf Urine Microscopic WBC 0-3 (0-3) per hpf Ur Squamous Epith Cells Moderate H (None-Few) per lpf Urine Bacteria None Seen (None-Few) per hpf Hyaline Casts None Seen (None-Few) per lpf Ur Culture Indicated? NO (NO) - Radiology Data Radiology results reviewed: Yes I reviewed the patient's radiology results. - EKG Data EKG #1 EKG attestation: Yes I reviewed and interpreted this EKG. EKG results narrative: EKG shows sinus rhythm. Stable right bundle branch block. Intervals are within normal limits. Ventricular rate is 74. [place] interval 171. QRS duration 149. QTC of 481. Intervals appear to be normal. Wendell is normal. Patient does not have any acute signs of WT W or Brugada syndrome.
[2017-05-07 11:03] LABS: Albumin 3.1 g/dL (3.5-5.7); Bilirubin,Direct 0.1 mg/dL (0.0-0.2); Bilirubin,Indirect 0.4 mg/dL (0.0-1.2); Bilirubin,Total 0.5 mg/dL (0.3-1.0); Calcium 8.1 mg/dL (8.6-10.3); Magnesium 2.2 mg/dL (1.6-2.6); Phosphorous 6.4 mg/dL (2.7-4.5); Potassium 4.8 mEq/L (3.5-5.1); Total Protein 6.1 g/dL (6.4-8.9)
[2017-05-07 11:46] LABS: Bilirubin,Urine Negative (Negative); Blood,Urine Negative (Negative); Clarity,Urine Clear (Clear); Color,Urine Yellow (Yellow); Glucose,Urine (UA) 100 mg/dL (Normal); Ketones,Urine Negative (Negative); Leukocyte Esterase,Urine Negative (Negative); Nitrite,Urine Negative (Negative); PH,Urine 8.5 pH Units (5.0-8.0); Protein,Urine 30 mg/dL (Neg-Trace); Specific Gravity,Urine 1.011 (1.010-1.025); Urobilinogen,Urine Normal (Normal)
[2017-05-07 11:48] LABS: Bacteria,Urine None Seen per hpf (None-Few); Hyaline Casts,Urine None Seen per lpf (None-Few); RBC,Urine 0-3 per hpf (0-3); Squamous Epithelial Cell,Urine Moderate per lpf (None-Few); WBC,Urine 0-3 per hpf (0-3)
[2017-05-07 13:52] LABS: Hepatitis B Surface Antibody 1.74 mIU/mL; Hepatitis B Surface Antigen Nonreactive (Nonreactive)
[2017-05-07] MEDS ORDERED: Naloxone 0.4 MG/ML INJ IVP PRN (14:58)
[2017-05-07] MEDS ORDERED: *HR* HYDROcodone/Acet 5/325 mg TABLET PO PRN ×2 (14:58→15:06)
[2017-05-07] MEDS ORDERED: Acetaminophen 325 MG TABLET PO PRN (14:58)
[2017-05-07] MEDS ORDERED: Acetaminophen/Butalbital/CaffeineTABLET PO PRN (14:59)
[2017-05-07] MEDS ORDERED: Ammonium Lactate 30 APPL/225 GM BOTTLE TP PRN (14:59)
[2017-05-07] MEDS ORDERED: traMADol 50 MG TABLET PO PRN ×2 (14:59→15:06)
[2017-05-07] MEDS ORDERED: 0.9 % Sodium Chloride 250 ML IVC PRN (15:17)
--- NOTE | 2017-05-07 15:21 | Internal Med History&Physical ---
Date of Encounter: 05/07/17 Time of Encounter: 14:40 Assessment and Plan (1) Twitching Current visit: Yes Status: Acute Will place the pt into Tele for observation Her twitching at resting - could be due to anxiety . however need to r/o any intra cranial pathology will put her on tele monitor Q4hr Neuro checks Neuro consulted Reviewed CT of Head - no acute ICH, No acute pathology ASA + Statin Will get MRI of Brain in AM Will check B12, Folic, TSH and FLP in AM will check phosphorus levels too cont close monitoring (2) Tremor Current visit: Yes Status: Acute (3) HTN (hypertension) Current visit: No Status: Acute resumed home meds so far stable BP Qualifiers: Hypertension type: essential hypertension Qualified Code(s): I10 - Essential (primary) hypertension (4) ESRD (end stage renal disease) on dialysis Current visit: No Status: Chronic consulted Nephro for hany HD (5) GERD (gastroesophageal reflux disease) Current visit: No Status: Chronic resumed home meds PPI Qualifiers: Esophagitis presence: esophagitis presence not specified Qualified Code(s) : K21.9 - Gastro-esophageal reflux disease without esophagitis (6) HLD (hyperlipidemia) Current visit: No Status: Chronic on statin Qualifiers: Hyperlipidemia type: pure hypercholesterolemia Qualified Code(s): E78.00 - Pure hypercholesterolemia, unspecified; E78.0 - Pure hypercholesterolemia Internal Medicine - H&P: HPI Chief complaint: Twitching Admitted From: Emergency Dept Plans for Post Hospital Care: Home History of present illness: Ms. Lynne is a 86 year old female with known HTN, HLD, GERD, ESRD on HD who is [facility] resident as [facility] was brought into ER stating that pt has been having sudden onset jerky / twitching movements in both UE and upper part of body started 2 days, which progressively worsening. She c/o more twitching on Left shoulder, left arm. 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 She denied any CP / SOB. She A, A, O x 3. Denied any focal neuro deficits. Denied any headaches. No seizure activity. Past Med Surg Social Fam HX - Past Medical History Medical history: dialysis, GERD, hyperlipidemia, hypertension, renal disease, other Psychiatric history: no psych history - Past Surgical History Surgical History: knee replacement (Bilateral), other - Social History Smoking Status: Never smoker Smokeless Tobacco Status: No Alcohol use: none Drug use: none - Family History Mother Family Member Ethnicity: Non- Living Status: Hx Family Cardiac Disorders: Yes Father Family Member Ethnicity: Non- Living Status: Hx Family Cardiac Disorders: Yes (HD) Brother Family Member Ethnicity: Non- Living Status: Hx Family Cardiac Disorders: Yes (HD) Sister Family Member Ethnicity: Non- Living Status: Hx Family Cardiac Disorders: Yes (HD) Internal Medicine - H&P: Meds Docusate [Colace] 100 mg PO DAILY PRN 08/30/16 [History] Famotidine [Pepcid] 20 mg PO DAILY 08/30/16 [History] Loratadine [Claritin] 10 mg PO DAILY 08/30/16 [History] Meclizine HCl [Verticalm] 25 mg PO TID PRN 08/30/16 [History] Melatonin 5 mg PO HS 08/30/16 [History] Ondansetron HCl [Zofran] 4 mg PO Q8H PRN 08/30/16 [History] Pantoprazole Sodium [Protonix] 40 mg PO DAILY 08/30/16 [History] Renal Vitamin [Renal Caps Softgel] 1 mg PO DAILY 08/30/16 [History] Trospium Chloride 20 mg PO HS 08/30/16 [History] Zinc Sulfate 220 mg PO DAILY 08/30/16 [History] HYDROcodone/Acet 5/325 mg [Sharon 5-325 mg] 1 tab PO DAILY PRN 12/12/16 [History] Acetaminophen [Tylenol] 650 mg PO Q6HR PRN #120 tab 12/14/16 [Rx] Aspirin Enteric Coated [Aspirin EC] 81 mg PO DAILY #30 tab 12/14/16 [Rx] Atorvastatin [Lipitor] 40 mg PO HS #30 tab 12/14/16 [Rx] Acetaminophen/Butalbital/Caffe [Fioricet] 2 tab PO Q8H PRN 05/07/17 [History] Ammonium Lactate 1 appl TP AD PRN 05/07/17 [History] Tramadol HCl [Ultram] 50 mg PO QID PRN 05/07/17 [History] 3 Allergy/AdvReac Type Severity Reaction Status Date / Time Erythromycin Base Allergy See Verified 12/18/16 06:31 Comments Penicillins Allergy See Verified 12/18/16 06:31 Comments Sulfa (Sulfonamide AdvReac See Verified 12/18/16 06:31 Antibiotics) Comments All Systems PM: A 10-system review of systems was performed and is negative for pertinent findings except as documented above in the HPI. Review of systems: Reviewed all the systems, everything is benign except the systems and symptoms I mentioned in HPI - Constitutional Vitals: Temp Pulse Resp BP Pulse Ox 98.3 F 80 16 118/69 97 05/07/17 09:46 05/07/17 13:13 05/07/17 13:13 05/07/17 13:13 05/07/17 13:13 General appearance: Present: A&O X 3, no acute distress, answers questions appropriately - Head Head exam: Present: atraumatic, normal inspection - Neck Neck exam general surgery: Present: supple - Respiratory Respiratory exam: Present: decreased breath sounds. Absent: rales, respiratory distress, rhonchi, wheezes - Cardiovascular Cardiovascular exam: Present: RRR, +S1, +S2. Absent: tachycardia - GI/Abdominal GI/Abdominal exam: Present: normal bowel sounds, soft. Absent: rebound, rigid, tenderness - Extremities Exam Extremities exam: Absent: calf tenderness, pedal edema, tenderness - Back Exam Back exam: Absent: CVA tenderness (L), CVA tenderness (R) - Neurological Exam Neurological exam: Present: alert, CN II-XII intact, oriented X3, reflexes normal, strengths equal and symetr throughout. Absent: no focal deficits, pronater drift, facial droop, speech deficit - Psychiatric Psychiatric exam: Present: normal affect, normal mood - Skin Skin exam: Absent: rash Internal Med - H&P Results - Labs CBC & Chem 7: 05/07/17 10:26 05/07/17 10:26
[2017-05-07] MEDS ORDERED: 0.9 % Sodium Chloride 1,000 ML PRIME SCH (15:30)
--- NOTE | 2017-05-07 15:30 | Neurology - Consult Note ---
Date of Encounter: 05/07/17 Time of Encounter: 15:24 Assessment and Plan (1) Myoclonia Current Visit: Yes Status: Acute Patient has evidence of myoclonus with sudden onset with evidence of asterxisis. Likely related to underlying ESRD. No other focal deficits noted. May be related to underlying end-stage renal disease. Suspicion for intracranial lesion is low. Medications include anticholinergic and Fioricet which is barbiturate-containing medication which can keep causing symptoms if she was taking regularly and then withdrew can contribute to these symptoms. Agree with following electrolytes, folic acid, B12, TSH. (2) ESRD (end stage renal disease) on dialysis Current Visit: No Status: Chronic History of Present Illness Chief complaint: "Twitching" HPI: Ms. Lynne is a 86 year old female with history of end-stage renal disease presents with twitching. Patient states that 2 days ago she had sudden onset of involuntary twitching. She states this mainly affects her upper extremities. She states she has never had anything like this before. She states nothing makes it better or worse. She denies any new medication changes. She has been compliant with her dialysis and has not missed any dialysis sessions. Past Med Surg Social Fam HX - Past Medical History Medical history: dialysis, GERD, hyperlipidemia, hypertension, renal disease, other Psychiatric history: no psych history - Past Surgical History Surgical History: knee replacement (Bilateral), other - Social History Smoking Status: Never smoker Smokeless Tobacco Status: No Alcohol use: none Drug use: none - Family History Mother Family Member Ethnicity: Non- Living Status: Hx Family Cardiac Disorders: Yes Father Family Member Ethnicity: Non- Living Status: Hx Family Cardiac Disorders: Yes (HD) Brother Family Member Ethnicity: Non- Living Status: Hx Family Cardiac Disorders: Yes (HD) Sister Family Member Ethnicity: Non- Living Status: Hx Family Cardiac Disorders: Yes (HD) Medications and Allergies Docusate [Colace] 100 mg PO DAILY PRN 08/30/16 [History] Famotidine [Pepcid] 20 mg PO DAILY 08/30/16 [History] Loratadine [Claritin] 10 mg PO DAILY 08/30/16 [History] Meclizine HCl [Verticalm] 25 mg PO TID PRN 08/30/16 [History] Melatonin 5 mg PO HS 08/30/16 [History] Ondansetron HCl [Zofran] 4 mg PO Q8H PRN 08/30/16 [History] Pantoprazole Sodium [Protonix] 40 mg PO DAILY 08/30/16 [History] Renal Vitamin [Renal Caps Softgel] 1 mg PO DAILY 08/30/16 [History] Trospium Chloride 20 mg PO HS 08/30/16 [History] Zinc Sulfate 220 mg PO DAILY 08/30/16 [History] HYDROcodone/Acet 5/325 mg [[place] 5-325 mg] 1 tab PO DAILY PRN 12/12/16 [History] Acetaminophen [Tylenol] 650 mg PO Q6HR PRN #120 tab 12/14/16 [Rx] Aspirin Enteric Coated [Aspirin EC] 81 mg PO DAILY #30 tab 12/14/16 [Rx] Atorvastatin [Lipitor] 40 mg PO HS #30 tab 12/14/16 [Rx] Acetaminophen/Butalbital/Caffe [Fioricet] 2 tab PO Q8H PRN 05/07/17 [History] Ammonium Lactate 1 appl TP AD PRN 05/07/17 [History] Tramadol HCl [Ultram] 50 mg PO QID PRN 05/07/17 [History] 3 Allergy/AdvReac Type Severity Reaction Status Date / Time Erythromycin Base Allergy See Verified 12/18/16 06:31 Comments Penicillins Allergy See Verified 12/18/16 06:31 Comments Sulfa (Sulfonamide AdvReac See Verified 12/18/16 06:31 Antibiotics) Comments All Systems: A 10-system review of systems was performed and is negative for pertinent findings except as documented above in the HPI. Physical Examination - Vital Signs Vital Signs: Initial Vital Signs Temp Pulse Resp BP Pulse Ox 98.3 F 77 14 160/67 98 05/07/17 09:46 05/07/17 09:46 05/07/17 09:46 05/07/17 09:46 05/07/17 09:46 - Constitutional General appearance: comfortable - Neurologic Sensorimotor examination: other (Myoclonic jerks to upper extremity L>R) Detailed motor examination: grossly full strength in all extremities Motor examination - right side: 5/5: deltoids, biceps, triceps, wrist flexion, wrist extension, land management supervisor, hip flexors, tibialis Anterior, quadriceps, toe extension (EHL), plantarflexion Motor examination - left side: 5: deltoids, biceps, triceps, wrist flexion, wrist extension, hip flexors, land management supervisor, quadriceps, tibialis Anterior, toe extension (EHL), plantarflexion Detailed sensory examination: intact Reflexes: Biceps: 2+, Triceps: 2+, Brachioradialis: 2+, Patella: 2+, Achilles: 2 + Mental Status Examination: awake, alert, oriented to person, oriented to place, oriented to time, follows commands appropriately, answers questions appropriately Cranial nerve examination: PERRL, EOMI, sensory to face intact, no facial asymmetry is present, no dysarthria, tongue protrudes midline, no atrophy or facial fasiculations present Cerebellar examination: performs finger to nose and heel to lyon symmetrically without ataxia, no difficulty with rapid alternating movements Results - Laboratory Findings CBC and BMP: 05/07/17 10:26 05/07/17 10:26 Abnormal lab findings: Abnormal lab results RBC 3.27 M/mcL (3.82-4.97) L 05/07/17 10:26 Hgb 9.8 g/dL (11.5-15.4) L 05/07/17 10:26 Hct 31.2 % (35.3-44.9) L 05/07/17 10:26 MCHC 31.4 g/dL (31.6-35.5) L 05/07/17 10:26 Carbon Dioxide 30 mEq/L (23-29) H 05/07/17 10:26 BUN 53 mg/dL (8-23) H 05/07/17 10:26 Creatinine 7.76 mg/dL (0.60-1.20) H 05/07/17 10:26 Est GFR ( Amer) 6 (> 60) L 05/07/17 10:26 Est GFR (Non-Af Amer) 5 (> 60) L 05/07/17 10:26 Calculated Osmolality 302 (280-300) H 05/07/17 10:26 Calcium 8.1 mg/dL (8.6-10.3) L 05/07/17 10:26 Phosphorus 6.4 mg/dL (2.7-4.5) H 05/07/17 10:26 B-Natriuretic Peptide 229 pg/mL (Less than 100) H 05/07/17 10:26 Serum Total Protein 6.1 g/dL (6.4-8.9) L 05/07/17 10:26 Albumin 3.1 g/dL (3.5-5.7) L 05/07/17 10:26 Albumin/Globulin Ratio 1.0 (1.1-2.2) L 05/07/17 10:26 Urine pH 8.5 pH Units (5.0-8.0) H 05/07/17 11:34 Urine Protein 30 mg/dL (Neg-Trace) H 05/07/17 11:34 Urine Glucose (UA) 100 mg/dL (Normal) H 05/07/17 11:34 Ur Squamous Epith Cells Moderate per lpf (None-Few) H 05/07/17 11:34 Consult Discharge Plan - Plan Referrals: Landon Potts MD [Primary Care Provider] -
[2017-05-07] MEDS: Melatonin 3 MG TABLET PO SCH (20:12)
[2017-05-08 03:59] LABS: Basophils # 0.1 K/mcL (0.0-0.2); Basophils % 1.3 %; Eosinophils # 0.3 K/mcL (0.0-0.6); Eosinophils % 4.8 %; Hematocrit 30.7 % (35.3-44.9); Hemoglobin 9.6 g/dL (11.5-15.4); Immature Granulocytes % 0.4 % (0-4); Lymphocytes # 1.6 K/mcL (0.6-4.6); Mean Corpuscular HGB Conc 31.3 g/dL (31.6-35.5); Mean Corpuscular Hemoglobin 29.9 pg (28.0-33.3); Mean Corpuscular Volume 95.6 fL (83.0-100.0); Mean Platelet Volume 11.5 fL (9.4-12.4); Monocytes # 0.7 K/mcL (0.0-1.3); Monocytes % 13.1 %; Neutrophils # 2.7 K/mcL (1.6-8.9); Platelet Count 144 K/mcL (140-400); Red Blood Count 3.21 M/mcL (3.82-4.97); Red Cell Distribution Width 14.3 % (11.5-14.5); Segmented Neutrophils % 50.4 %
[2017-05-08 04:14] LABS: Calcium 8.3 mg/dL (8.6-10.3); Chol/HDL Ratio 3.6 (0-4.9); Phosphorous 4.9 mg/dL (2.7-4.5); Potassium 4.5 mEq/L (3.5-5.1)
[2017-05-08 05:08] LABS: Thyroid Stimulating Hormone 3.149 mcIU/mL (0.340-5.600)
--- NOTE | 2017-05-08 06:45 | Electrocardiograph Report ---
[facility] Test Date: 2017-05-07 Pat Name: Glory Lynne Department: 103 Room: 2A36 Gender: F Rn Clinical Research: : 1930 Requested By: Angelito Zhu Order Number: [id number] Reading MD: Omkar Crandall MD Measurements Intervals Wheeler Rate: 74 P: -13 NC: 171 QRS: -11 QRSD: 149 T: 59 QT: 454 QTc: 481 Interpretive Statements SINUS RHYTHM RIGHT BUNDLE BRANCH BLOCK Electronically Signed On 05-08-2017 6:43:20 EST by Omkar Crandall MD
--- NOTE | 2017-05-08 08:18 | Nephrology Consult Note ---
Date of Encounter: 05/08/17 Time of Encounter: 08:16 Assessment and Plan (1) ESRD (end stage renal disease) on dialysis Current Visit: No Status: Chronic The patient has end-stage renal disease and receives dialysis consistently every Sunday. Her KT over V and urea reduction ratio shows that she is receiving adequate dialysis. Her symptoms are not related to uremia. (2) Myoclonus Current Visit: Yes Status: Acute The patient does exhibit mild clonus. I believe that this is a side effect of the narcotic analgesics that she is receiving in the setting of end-stage renal disease. (3) Dementia Current Visit: Yes Status: Acute Qualifiers: Dementia type: Alzheimer's disease Alzheimer's disease onset: late-onset Dementia behavioral disturbance: without behavioral disturbance Qualified Code (s): G30.1 - Alzheimer's disease with late onset; F02.80 - Dementia in other diseases classified elsewhere without behavioral disturbance; F02.80 - Dementia in other diseases classified elsewhere without behavioral disturbance; F02.80 - Dementia in other diseases classified elsewhere without behavioral disturbance History of Present Illness - History of Present Illness This is an 86-year-old female who has end-stage renal disease. She receives dialysis every Sunday in [place]. Patient was sent from the longterm to the emergency room because of what is being called tremors. On my exam she appears to have myoclonic jerks. She did undergo dialysis yesterday. Patient is well dialyzed. She receives dialysis 3 days per week in her lab work including her KT over V and urea reduction ratio showed that she is adequately dialyzed. The patient does have underlying dementia. She has a very poor short-term memory. Patient also has a history of chronic dizziness which she has complained of for many years. Currently the patient is alert. She does recognize me. She does exhibit myoclonus of her upper extremities and shoulders. Past Med Surg Social Fam HX - Past Medical History Medical history: dialysis, GERD, hyperlipidemia, hypertension, renal disease, other Psychiatric history: no psych history - Past Surgical History Surgical History: knee replacement, other - Social History Smoking Status: Never smoker Smokeless Tobacco Status: No Alcohol use: none Drug use: none - Family History Mother Family Member Ethnicity: Non- Living Status: Hx Family Cardiac Disorders: Yes Father Family Member Ethnicity: Non- Living Status: Hx Family Cardiac Disorders: Yes (HD) Brother Family Member Ethnicity: Non- Living Status: Hx Family Cardiac Disorders: Yes (HD) Sister Family Member Ethnicity: Non- Living Status: Hx Family Cardiac Disorders: Yes (HD) Medications and Allergies Docusate [Colace] 100 mg PO DAILY PRN 08/30/16 [History] Famotidine [Pepcid] 20 mg PO DAILY 08/30/16 [History] Loratadine [Claritin] 10 mg PO DAILY 08/30/16 [History] Meclizine HCl [Verticalm] 25 mg PO TID PRN 08/30/16 [History] Melatonin 5 mg PO HS 08/30/16 [History] Ondansetron HCl [Zofran] 4 mg PO Q8H PRN 08/30/16 [History] Pantoprazole Sodium [Protonix] 40 mg PO DAILY 08/30/16 [History] Renal Vitamin [Renal Caps Softgel] 1 mg PO DAILY 08/30/16 [History] Trospium Chloride 20 mg PO HS 08/30/16 [History] Zinc Sulfate 220 mg PO DAILY 08/30/16 [History] HYDROcodone/Acet 5/325 mg [[place] 5-325 mg] 1 tab PO DAILY PRN 12/12/16 [History] Acetaminophen [Tylenol] 650 mg PO Q6HR PRN #120 tab 12/14/16 [Rx] Aspirin Enteric Coated [Aspirin EC] 81 mg PO DAILY #30 tab 12/14/16 [Rx] Atorvastatin [Lipitor] 40 mg PO HS #30 tab 12/14/16 [Rx] Acetaminophen/Butalbital/Caffe [Fioricet] 2 tab PO Q8H PRN 05/07/17 [History] Ammonium Lactate 1 appl TP AD PRN 05/07/17 [History] Tramadol HCl [Ultram] 50 mg PO QID PRN 05/07/17 [History] 3 Allergy/AdvReac Type Severity Reaction Status Date / Time Erythromycin Base Allergy See Verified 12/18/16 06:31 Comments Penicillins Allergy See Verified 12/18/16 06:31 Comments Sulfa (Sulfonamide AdvReac See Verified 12/18/16 06:31 Antibiotics) Comments Review of Systems Constitutional: as per HPI, weakness Eyes: bilateral: blurred vision (patient denies), diplopia (patient denies) Nose, mouth and throat: no dizziness, no headache(s) Cardiovascular: no chest pain, no palpitations Respiratory: no cough, no dyspnea Gastrointestinal: no abdominal pain, no change in bowel habits Musculoskeletal: no muscle weakness, no numbness Integumentary: no hirsutism, no striae Neurological: as per HPI, abnormal movements, memory loss Psychiatric: no depression, no difficulty concentrating Endocrine: as per HPI Exam - Vital Signs Vital signs: Initial Vital Signs Temp Pulse Resp BP Pulse Ox 98.3 F 77 14 160/67 98 05/07/17 09:46 05/07/17 09:46 05/07/17 09:46 05/07/17 09:46 05/07/17 09:46 Vital Signs - Last 8 Hours Temp Pulse Resp BP Pulse Ox 05/08/17 05:47 98.6 F 78 18 113/65 95 Intake and Output 05/07/17 05/08/17 05/08/17 23:59 07:59 15:59 Intake Total 0 / 0 0 / 0 Output Total 2600 / 2600 Balance -2600 / -2600 0 / 0 Intake: Oral 0 / 0 0 / 0 Output: Urine 0 / 0 Total Dialysis (HD) Output 2600 / 2600 Other: Meal Dinner Percent of Meal Consumed 25% Weight 77.224 kg Hemodialysis Net Fluid Removed 2000 (mL) Patient Weight 05/08/17 23:59 Weight 77.224 kg - General Appearance Exam: Patient is alert. She is in no acute distress. Vital signs are stable. Lungs coarse breath sounds otherwise clear to auscultation. Heart regular rate and rhythm with a 2/6 ejection murmur. Abdomen shows normal bowel sounds to bruits mashes again megaly or tenderness. Lower examination no peripheral edema. There is a functioning AV fistula in the left upper extremity. The patient does exhibit mild clonus of the upper extremities and shoulder areas. Results - Lab Results 05/08/17 03:41 05/08/17 03:41 Most recent lab results Calcium 8.3 mg/dL (8.6-10.3) L 05/08/17 03:41 Phosphorus 4.9 mg/dL (2.7-4.5) H 05/08/17 03:41 Magnesium 2.0 mg/dL (1.6-2.6) 05/08/17 03:41 Consult Discharge Plan - Plan Referrals: Landon Potts MD [Primary Care Provider] -
[2017-05-08] MEDS ORDERED: Famotidine 20 MG TABLET PO SCH (09:00)
--- NOTE | 2017-05-08 09:23 | Neurology Progress Note ---
Date of Encounter: 05/08/17 Time of Encounter: 09:20 Assessment and Plan (1) Myoclonia Current Visit: Yes Status: Acute Patient still has mild myoclonic jerks. Patient was observed sleeping and amplitude was greatly decreased on the patient was sleeping and increase when she was awake and alert. Appears slightly improved after dialysis. Discussed with the patient regarding long-term treatment and the patient does not want to start a new medication that could be associated with more side effects. Discussed with the patient that symptoms could be worsened by her opiate pain medication and barbiturate containing headache medication and I recommended to her that she use these medications as little as possible. Continue to recommend compliance with dialysis treatments. 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 Patient had repeat head CT overnight and an MRI that showed no acute findings. Patient believes that she been told in the past that she has had this and may have had this for her entire life. No further testing indicated. (3) ESRD (end stage renal disease) on dialysis Current Visit: No Status: Chronic Subjective Principal diagnosis: Twitching Interval history: Patient seen and examined at bedside. Patient states that she feels slightly better today. She feels that her twitching is mildly improved after dialysis. She denies headache, vision changes, extremity numbness/tingling or weakness. Objective - Constitutional Vitals: Temp Pulse Resp BP Pulse Ox 98.6 F 76 16 110/64 97 05/08/17 08:17 05/08/17 08:17 05/08/17 08:17 05/08/17 08:17 05/08/17 08:17 - Neurological Exam Sensorimotor examination: Present: other (Myoclonic jerks to upper extremity L>R ) Motor Examination: Present: grossly full strength in all extremities Motor examination - left side: 5/5: deltoids, biceps, triceps, wrist flexion, wrist extension, hip flexors, mold maintenance technician, quadriceps, tibialis Anterior, toe extension (EHL), plantarflexion Sensation intact: Present: intact Mental Status Examination: Present: awake, alert, oriented to person, oriented to place, oriented to time, follows commands appropriately, answers questions appropriately Cranial nerve examination: Present: EOMI, sensory to face intact, no facial asymmetry is present, no dysarthria, tongue protrudes midline, no atrophy or facial fasiculations present Cerebellar examination: Present: performs finger to nose and heel to lyon symmetrically without ataxia, no difficulty with rapid alternating movements Additional comments: Left pupil is slightly larger than the right pupil. They are equal and reactive to light. Results - Laboratory Findings CBC and BMP: 05/08/17 03:41 05/08/17 03:41 Abnormal lab findings: Abnormal lab results RBC 3.21 M/mcL (3.82-4.97) L 05/08/17 03:41 Hgb 9.6 g/dL (11.5-15.4) L 05/08/17 03:41 Hct 30.7 % (35.3-44.9) L 05/08/17 03:41 MCHC 31.3 g/dL (31.6-35.5) L 05/08/17 03:41 Creatinine 4.45 mg/dL (0.60-1.20) H 05/08/17 03:41 Est GFR ( Amer) 11 (> 60) L 05/08/17 03:41 Est GFR (Non-Af Amer) 9 (> 60) L 05/08/17 03:41 BUN/Creatinine Ratio 5 (6-26) L 05/08/17 03:41 Glucose 110 mg/dL (70-105) H 05/08/17 03:41 Calcium 8.3 mg/dL (8.6-10.3) L 05/08/17 03:41 Phosphorus 4.9 mg/dL (2.7-4.5) H 05/08/17 03:41 B-Natriuretic Peptide 229 pg/mL (Less than 100) H 05/07/17 10:26 Serum Total Protein 6.1 g/dL (6.4-8.9) L 05/07/17 10:26 Albumin 3.1 g/dL (3.5-5.7) L 05/07/17 10:26 Albumin/Globulin Ratio 1.0 (1.1-2.2) L 05/07/17 10:26 HDL Cholesterol 34 mg/dL (40-59) L 05/08/17 03:41 Folate 39.0 ng/mL (3.0-16.0) H 05/08/17 03:41 Urine pH 8.5 pH Units (5.0-8.0) H 05/07/17 11:34 Urine Protein 30 mg/dL (Neg-Trace) H 05/07/17 11:34 Urine Glucose (UA) 100 mg/dL (Normal) H 05/07/17 11:34 Ur Squamous Epith Cells Moderate per lpf (None-Few) H 05/07/17 11:34 Consult Discharge Plan - Plan Referrals: Landon Potts MD [Primary Care Provider] -
[2017-05-08] MEDS: Aspirin Enteric Coated 81 MG Tablet PO SCH (09:50)
[2017-05-08] MEDS: Zinc Sulfate 220 MG CAPSULE PO SCH (09:50)
[2017-05-08] MEDS: Renal Vitamin 1 MG CAPSULE PO SCH (09:50)
--- NOTE | 2017-05-08 15:10 | Internal Med Progress Note ---
Date of Encounter: 05/08/17 Time of Encounter: 09:15 - Assessment and plan (1) Myoclonus Current Visit: Yes Status: Acute Assessment and plan: improving since admission, per consult notes; has some myoclonus in left UE, worse with being awake; medications reviewed- could be due to narcotics, PRN Fioricet; patient does need pain meds due to chronic dependence and generalized pains; supportive care; d/w Neurology, consult appreciated; will hold off on further meds like benzodiazepines to treat this myoclonus, could also be related to underlying ESRD and use of pain meds; plan for discharge in am, after scheduled HD; (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 (3) Anemia in chronic kidney disease (CKD) Current Visit: Yes Status: Chronic Assessment and plan: Hb stable, around baseline, 9.6 today; Qualifiers: Chronic kidney disease stage: on chronic dialysis Qualified Code(s): N18.6 - End stage renal disease; D63.1 - Anemia in chronic kidney disease; Z99.2 - Dependence on renal dialysis (4) HTN (hypertension) Current Visit: Yes Status: Chronic Assessment and plan: BP well-controlled; continue home meds; Qualifiers: Hypertension type: essential hypertension Qualified Code(s): I10 - Essential (primary) hypertension (5) ESRD (end stage renal disease) on dialysis Current Visit: Yes Status: Chronic Assessment and plan: Nephrology on board, plan for HD in am; (6) GERD (gastroesophageal reflux disease) Current Visit: Yes Status: Chronic Qualifiers: Esophagitis presence: esophagitis presence not specified Qualified Code(s) : K21.9 - Gastro-esophageal reflux disease without esophagitis (7) HLD (hyperlipidemia) Current Visit: Yes Status: Chronic Qualifiers: Hyperlipidemia type: pure hypercholesterolemia Qualified Code(s): E78.00 - Pure hypercholesterolemia, unspecified; E78.0 - Pure hypercholesterolemia - Subjective Interval history: Reports feeling "lousy" with generalized bodyaches; underwent HD yesterday; noted to have left arm and shoulder intermittent jerking while talking to me; reports she is bedbound, and from a ECF; - Constitutional Vitals: Temp Pulse Resp BP Pulse Ox 98.0 F 74 17 102/57 97 05/08/17 12:01 05/08/17 12:01 05/08/17 12:01 05/08/17 12:01 05/08/17 12:01 General appearance: Present: A&O X 3, no acute distress, answers questions appropriately - Respiratory Respiratory exam: Present: CTAB (anterolaterally). Absent: accessory muscle use , rales, rhonchi, wheezes - Cardiovascular Cardiovascular exam: Present: RRR, +S1, +S2. Absent: diastolic murmur, gallop, rubs, systolic murmur - GI/Abdominal GI/Abdominal exam: Present: normal bowel sounds, soft, no peritoneal signs. Absent: distended, tenderness - Extremities Exam Extremities exam: Present: full ROM (decreased in B/L hips and knees), pedal edema, warm, radial pulses palpable and symmetrical. Absent: calf tenderness, cyanotic - Neurological Exam Neurological exam: Present: CN II-XII intact, oriented X3, no focal deficits ( decreased motor power B/L LE). Absent: pronater drift, facial droop, speech deficit Additional comments: noted to have involuntary myoclonic jerks/twitches, mostly in left UE- arm and shoulder; no asterixis; Internal Medicine: Result - Labs CBC & Chem 7: 05/08/17 03:41 05/08/17 03:41 Labs: Short CBC 05/08/17 Range/Units 03:41 WBC 5.3 (4.3-11.1) K/mcL Hgb 9.6 L (11.5-15.4) g/dL Hct 30.7 L (35.3-44.9) % Plt Count 144 (140-400) K/mcL Neutrophils # 2.7 (1.6-8.9) K/mcL BMP 05/08/17 03:41 Sodium 139 Potassium 4.5 Chloride 101 Carbon Dioxide 29 BUN 23 Creatinine 4.45 H Glucose 110 H Calcium 8.3 L - ABG Interpretation ABG results: PT/INR, D-dimer PT 10.8 Seconds (9.4-12.1) 05/07/17 10:26 - Impressions Impressions Brain MRI 05/07/17 15:18 IMPRESSION: 1. No acute intracranial abnormality within limits of mild motion artifact. 2. Senescent parenchymal volume loss with moderate chronic white matter microvascular ischemic changes. D/ / Mauricio Wade / Mauricio Wade Interpreting Provider: Mauricio Wade Head CT 05/08/17 03:01 IMPRESSION: Stable brain CT. D/ / Ron Dickerson MD / Ron Dickerson MD Interpreting Provider: Ron Dickerson MD Consult Discharge Plan - Plan Referrals: Landon Potts MD [Primary Care Provider] - (From [facility]...)
[2017-05-08] MEDS: Melatonin 3 MG TABLET PO SCH (21:29)
[2017-05-09 04:45] LABS: Basophils % 0.7 %; Eosinophils # 0.2 K/mcL (0.0-0.6); Eosinophils % 3.6 %; Hemoglobin 9.5 g/dL (11.5-15.4); Immature Granulocytes % 0.3 % (0-4); Immature Platelets 4.3 % (1.1-6.1); Lymphocytes % 26.7 %; Mean Corpuscular HGB Conc 32.8 g/dL (31.6-35.5); Mean Corpuscular Hemoglobin 30.6 pg (28.0-33.3); Mean Corpuscular Volume 93.5 fL (83.0-100.0); Mean Platelet Volume 11.9 fL (9.4-12.4); Monocytes # 0.8 K/mcL (0.0-1.3); Neutrophils # 3.2 K/mcL (1.6-8.9); Platelet Count 147 K/mcL (140-400); Red Cell Distribution Width 14.2 % (11.5-14.5); Segmented Neutrophils % 55.7 %
[2017-05-09 04:55] LABS: Albumin 2.9 g/dL (3.5-5.7); Albumin/Globulin Ratio 1.1 (1.1-2.2); Bilirubin,Total 0.5 mg/dL (0.3-1.0); Calcium 8.3 mg/dL (8.6-10.3); Globulin 2.7 g/dL (2.4-3.5); Potassium 5.2 mEq/L (3.5-5.1); Total Protein 5.6 g/dL (6.4-8.9)
[2017-05-09 05:58] LABS: Lymphocytes # 1.6 K/mcL (0.6-4.6)
[2017-05-09] MEDS ORDERED: 0.9 % Sodium Chloride 250 ML IVC PRN (09:05)
--- NOTE | 2017-05-09 09:05 | Nephrology Progress Note ---
Date of Encounter: 05/09/17 Time of Encounter: 09:04 - Assessment and Plan (1) ESRD (end stage renal disease) on dialysis Current Visit: Yes Status: Chronic Patient is stable from a renal perspective. She will undergo dialysis today. I believe her myoclonus is related to narcotic analgesics being administered in the setting of end-stage renal disease. Medication should be limited as much as possible. (2) Myoclonus Current Visit: Yes Status: Acute (3) Dementia Current Visit: Yes Status: Acute Qualifiers: Dementia type: Alzheimer's disease Alzheimer's disease onset: late-onset Dementia behavioral disturbance: without behavioral disturbance Qualified Code (s): G30.1 - Alzheimer's disease with late onset; F02.80 - Dementia in other diseases classified elsewhere without behavioral disturbance; F02.80 - Dementia in other diseases classified elsewhere without behavioral disturbance; F02.80 - Dementia in other diseases classified elsewhere without behavioral disturbance Subjective Principal diagnosis: Twitching Interval history: The patient reports she is having less myoclonic jerking movements. He denies any other complaints other than generalized weakness. She is scheduled for her usual dialysis today. Objective - Vital Signs Vital signs: Vital Signs Temp Pulse Resp BP Pulse Ox 05/09/17 05:00 98.2 F 78 18 121/72 96 05/09/17 01:00 98.2 F 77 18 116/71 95 05/08/17 19:00 98.3 F 85 18 122/71 94 05/08/17 15:50 97.3 F L 75 17 111/67 96 05/08/17 12:01 98.0 F 74 17 102/57 97 05/08/17 10:37 110/64 Intake and Output 05/08/17 05/09/17 05/09/17 23:59 07:59 15:59 Intake Total 0 / 0 240 / 240 Output Total 0 / 0 Balance 0 / 0 240 / 240 Intake: Oral 0 / 0 240 / 240 Output: Urine 0 / 0 Other: # Voids 2 Weight 78.1 kg Patient Weight 05/09/17 23:59 Weight 78.1 kg - General Appearance Exam: Patient is alert. She does exhibit signs of dementia. Lungs clear to auscultation. Heart regular rate and rhythm. Abdomen is benign. There is minimal lower [place] swelling. There is a functioning AV fistula in the left upper extremity. There is no evidence of myoclonus during exam this morning. - Lab 05/09/17 04:06 05/09/17 04:06 Most recent lab results Calcium 8.3 mg/dL (8.6-10.3) L 05/09/17 04:06 Phosphorus 4.9 mg/dL (2.7-4.5) H 05/08/17 03:41 Magnesium 2.0 mg/dL (1.6-2.6) 05/08/17 03:41 Consult Discharge Plan - Plan Referrals: Landon Potts MD [Primary Care Provider] - (From [facility]...)
[2017-05-09] MEDS: Renal Vitamin 1 MG CAPSULE PO SCH (09:10)
[2017-05-09] MEDS: Aspirin Enteric Coated 81 MG Tablet PO SCH (09:10)
[2017-05-09] MEDS: Zinc Sulfate 220 MG CAPSULE PO SCH (09:10)
--- NOTE | 2017-05-09 14:15 | Discharge Summary ---
Date of Encounter: 05/09/17 Time of Encounter: 14:14 - Discharge Diagnosis (1) Myoclonus Priority: Primary Status: Acute (2) Anisocoria Priority: Secondary Status: Chronic (3) Anemia in chronic kidney disease (CKD) Priority: Secondary Status: Chronic Qualifiers: Chronic kidney disease stage: on chronic dialysis Qualified Code(s): N18.6 - End stage renal disease; D63.1 - Anemia in chronic kidney disease; Z99.2 - Dependence on renal dialysis (4) HTN (hypertension) Priority: Secondary Status: Chronic Qualifiers: Hypertension type: essential hypertension Qualified Code(s): I10 - Essential (primary) hypertension (5) ESRD (end stage renal disease) on dialysis Priority: Secondary Status: Chronic (6) GERD (gastroesophageal reflux disease) Priority: Secondary Status: Chronic Qualifiers: Esophagitis presence: esophagitis presence not specified Qualified Code(s) : K21.9 - Gastro-esophageal reflux disease without esophagitis (7) HLD (hyperlipidemia) Priority: Secondary Status: Chronic Qualifiers: Hyperlipidemia type: unspecified Qualified Code(s): E78.5 - Hyperlipidemia , unspecified - Discharge Medications Home Medications: Docusate [Colace] 100 mg PO DAILY PRN 08/30/16 [History] Famotidine [Pepcid] 20 mg PO DAILY 08/30/16 [History] Loratadine [Claritin] 10 mg PO DAILY 08/30/16 [History] Meclizine HCl [Verticalm] 25 mg PO TID PRN 08/30/16 [History] Melatonin 5 mg PO HS 08/30/16 [History] Ondansetron HCl [Zofran] 4 mg PO Q8H PRN 08/30/16 [History] Pantoprazole Sodium [Protonix] 40 mg PO DAILY 08/30/16 [History] Renal Vitamin [Renal Caps Softgel] 1 mg PO DAILY 08/30/16 [History] Trospium Chloride 20 mg PO HS 08/30/16 [History] Zinc Sulfate 220 mg PO DAILY 08/30/16 [History] Acetaminophen [Tylenol] 650 mg PO Q6HR PRN #120 tab 12/14/16 [Rx] Aspirin Enteric Coated [Aspirin EC] 81 mg PO DAILY #30 tab 12/14/16 [Rx] Atorvastatin [Lipitor] 40 mg PO HS #30 tab 12/14/16 [Rx] Ammonium Lactate 1 appl TP AD PRN 05/07/17 [History] Acetaminophen [Tylenol] 650 mg PO Q6HR PRN tablet 05/09/17 [Rx] Acetaminophen/Butalbital/Caffe [Fioricet] 1 tab PO DAILY PRN #10 05/09/17 [Rx] HYDROcodone/Acet 5/325 mg [[place] 5-325 mg] 1 tab PO DAILY PRN 10 Days #5 [Rx] Allergies/Adverse Reactions: 3 Allergy/AdvReac Type Severity Reaction Status Date / Time Erythromycin Base Allergy See Verified 12/18/16 06:31 Comments Penicillins Allergy See Verified 12/18/16 06:31 Comments Sulfa (Sulfonamide AdvReac See Verified 12/18/16 06:31 Antibiotics) Comments Procedures/tests Complete & Pending: Procedures Performed prior 72 hours Category Date Time Status CT head/brain wo con [CT] Stat Cat Scan 05/08/17 03:01 Completed MR head/brain wo con [MR] Routine MRI 05/07/17 15:18 Completed Date of admission: 05/07/17 13:52 Primary care physician: Landon Potts MD Consults: 05/07/17 15:30 Consult to Dialysis [CONS] ONCE 05/07/17 20:35 Consult to Nutrition [CONS] Routine Comment: Consulting Provider: NUTRITION Reason for Dietary Consult: MST Score 05/08/17 09:01 Consult to Card Placer [CONS] Routine Reason for SW Consult: return to [facility] 05/09/17 09:15 Consult to Dialysis [CONS] ONCE Discharging clinician: Kathy Jarrell Anticipated date of discharge: 05/09/17 - Patient Status Disposition: Transfer SNF Condition: Good Functional capacity at discharge: bed bound Overall status at discharge: patient is progressing back to baseline - Discharge Instructions Follow Up With: Landon Potts MD [Primary Care Provider] - (From [facility]...) Additional Instructions: F/up with PCP in 1-2 weeks F/up with HD 3times/week- MWF - Diet and Activity Activity: as per physical therapy Diet: low fat, low cholesterol, low salt diet, other (renal diet) Hospital course: Ms. Lynne is a 86 year old female with the above medical problems, admitted with sudden new onset of involuntary movements and twitching in her left shoulder and arm. Patient was noted to have myoclonic jerks with evidence of asterixis. Initial labs, CT head showed no acute abnormality. Patient was alert and oriented with no encephalopathy. Neurology evaluation was completed, recommended no further intervention as this is likely myoclonus in the setting of end-stage renal disease, use of opiate pain medications, Fioricet ( barbiturates). Symptomatic treatment with benzodiazepines like Ativan may cause unnecessary side effects like confusion and drowsiness and patient refused any such treatment. Nephrology was consulted and patient underwent regular hemodialysis sessions while in the hospital. Patient is noted to be alert and oriented with complete resolution of her myoclonus today and is medically stable for discharge back to halfway. - Time Spent with Patient Total time spent providing and/or coordinating discharge services: Greater than 30 minutes (40 min) - Constitutional Vitals: Temp Pulse Resp BP Pulse Ox 97.4 F L 78 18 109/52 96 05/09/17 12:35 05/09/17 05:00 05/09/17 12:35 05/09/17 12:35 05/09/17 05:00 General appearance: Present: A&O X 3, answers questions appropriately - Cardiovascular Cardiovascular exam: Present: RRR, +S1, +S2. Absent: diastolic murmur, gallop, rubs, systolic murmur
--- NOTE | 2017-05-09 14:20 | Physician Discharge Referral ---
ExtendedCare Referral Info Transfer To: [facility] Provider in Charge: Kathy Jarrell Provider in Charge after Transfer: PCP Institutional Level of Care: Skilled - Diagnosis (1) Myoclonus Priority: Primary Status: Acute (2) Anisocoria Priority: Secondary Status: Chronic (3) Anemia in chronic kidney disease (CKD) Priority: Secondary Status: Chronic (4) HTN (hypertension) Priority: Secondary Status: Chronic (5) ESRD (end stage renal disease) on dialysis Priority: Secondary Status: Chronic (6) GERD (gastroesophageal reflux disease) Priority: Secondary Status: Chronic (7) HLD (hyperlipidemia) Priority: Secondary Status: Chronic Expected Duration of Placement: steam cleaner Prognosis: Fair Aware of Diagnosis: Patient, Family Aware of Prognosis: Patient, Family - Transfer Medications Home Medications: Docusate [Colace] 100 mg PO DAILY PRN 08/30/16 [History] Famotidine [Pepcid] 20 mg PO DAILY 08/30/16 [History] Loratadine [Claritin] 10 mg PO DAILY 08/30/16 [History] Meclizine HCl [Verticalm] 25 mg PO TID PRN 08/30/16 [History] Melatonin 5 mg PO HS 08/30/16 [History] Ondansetron HCl [Zofran] 4 mg PO Q8H PRN 08/30/16 [History] Pantoprazole Sodium [Protonix] 40 mg PO DAILY 08/30/16 [History] Renal Vitamin [Renal Caps Softgel] 1 mg PO DAILY 08/30/16 [History] Trospium Chloride 20 mg PO HS 08/30/16 [History] Zinc Sulfate 220 mg PO DAILY 08/30/16 [History] Acetaminophen [Tylenol] 650 mg PO Q6HR PRN #120 tab 12/14/16 [Rx] Aspirin Enteric Coated [Aspirin EC] 81 mg PO DAILY #30 tab 12/14/16 [Rx] Atorvastatin [Lipitor] 40 mg PO HS #30 tab 12/14/16 [Rx] Ammonium Lactate 1 appl TP AD PRN 05/07/17 [History] Acetaminophen [Tylenol] 650 mg PO Q6HR PRN tablet 05/09/17 [Rx] Acetaminophen/Butalbital/Caffe [Fioricet] 1 tab PO DAILY PRN #10 05/09/17 [Rx] HYDROcodone/Acet 5/325 mg [[place] 5-325 mg] 1 tab PO DAILY PRN 10 Days #5 [Rx] Allergies/Adverse Reactions: 3 Allergy/AdvReac Type Severity Reaction Status Date / Time Erythromycin Base Allergy See Verified 12/18/16 06:31 Comments Penicillins Allergy See Verified 12/18/16 06:31 Comments Sulfa (Sulfonamide AdvReac See Verified 12/18/16 06:31 Antibiotics) Comments - Respiratory Orders Smoking Cessation: Smoking cessation has been advised. For more information, call the [place] Tobacco Quit Line at 5-375-KNAR-NOW. - Ancillary Orders May use pressure relief devices daily prn - Advance Directives Code Status: Full Code - Mobility Orders Bedrest - Rehabiliation Orders Rehab Potential: Fair Rehab Orders: ROM Exercises, Evaluation for Physical Therapy, Evaluation for Occupational Therapy - Diet Orders Renal, Cardiac CERTIFICATION: I certify that the transfer of the above named patient to an Extended Care Facility is necessary for the continuing treatment of the diagnosis listed. The above information is true and accurate reflection of patient's current condition. Confidential - Redisclosure prohibited without a patient's written consent.
[2017-05-09 15:12] VITALS: BP 97/60
== END 2017-05-09 16:37 ==
LOC: EMEROO 09:45 → 2ANU 09:45 → SUATTDRO 13:52 → 2ANU 14:49
PROVIDERS: ADMIT Family Medicine; ATTEND Internal Medicine

== ENCOUNTER 2017-09-13 10:11 | Observation (INO) ==
--- NOTE | 2017-09-13 10:34 | Emergency Department Note ---
Disposition Clinical Impression: Nausea and vomiting Qualifiers: Vomiting type: unspecified Vomiting Intractability: non-intractable Qualified Code(s): R11.2 - Nausea with vomiting, unspecified Headache Qualifiers: Headache type: unspecified Headache chronicity pattern: unspecified pattern Intractability: not intractable Qualified Code(s): R51 - Headache Disposition: Still a Patient Referrals: Landon Potts MD [Primary Care Provider] - Forms: ED Satisfaction Letter Time of Disposition: 11:03 General Adult HPI - General Chief complaint: ED Weakness Stated complaint: nausea/vomitting Time Seen by Provider: 09/13/17 10:12 Source: patient, EMS Mode of arrival: EMS Limitations: no limitations Nursing Notes Reviewed: Yes Vital Signs Reviewed: Yes - History of Present Illness HPI Narrative: 86-year-old female is brought by EMS from a local [facility] facility for evaluation of a persistent headache and nausea/vomiting. The patient states that she sustained a fall on September 04. She states that she did have a positive loss of consciousness. She does state that she was evaluated at this facility at that time and had a negative CT scan, however there are no visit details for that date for this patient. She complains of a persistent headache ever since as well as a new onset of blurry vision this morning. She has also had 2 episodes of vomiting this morning but denies any associated abdominal pain, fever, chills, urinary symptoms, diarrhea, or constipation. She complains of no pain aside from her posterior headache. She denies any noticeable weakness or paresthesias of the extremities. She denies any chest pain or shortness of breath. She states that she was recently evaluated by a neurologist and was started on gabapentin. She is only taken 2 doses of gabapentin since it was prescribed to her. Onset (ago): unknown Location: head Pain Scale: 7 Associated symptoms: Reports: headaches, nausea/vomiting, weakness. Denies: chest pain, cough, fever/chills, shortness of breath - Related Data Home Medications Medication Instructions Recorded Confirmed Docusate [Colace] 100 mg PO DAILY PRN 08/30/16 09/13/17 Famotidine [Pepcid] 20 mg PO DAILY 08/30/16 09/13/17 Loratadine [Claritin] 10 mg PO DAILY 08/30/16 09/13/17 Meclizine HCl [Verticalm] 25 mg PO TID PRN 08/30/16 09/13/17 Melatonin 5 mg PO HS 08/30/16 09/13/17 Ondansetron HCl [Zofran] 4 mg PO Q8H PRN 08/30/16 09/13/17 Pantoprazole Sodium [Protonix] 40 mg PO DAILY 08/30/16 09/13/17 Renal Vitamin [Renal Caps Softgel] 1 mg PO DAILY 08/30/16 09/13/17 Trospium Chloride 20 mg PO HS 08/30/16 09/13/17 Zinc Sulfate 220 mg PO DAILY 08/30/16 09/13/17 Ammonium Lactate 1 appl TP AD PRN 05/07/17 09/13/17 Atorvastatin [Lipitor] 10 mg PO HS 09/13/17 09/13/17 Gabapentin [Neurontin] 300 cap PO HS 09/13/17 09/13/17 Sevelamer HCl [Renagel] 800 tab PO TID 09/13/17 09/13/17 Previous Rx's Medication Instructions Recorded Acetaminophen [Tylenol] 650 mg PO Q6HR PRN #120 tab 12/14/16 Aspirin Enteric Coated [Aspirin EC] 81 mg PO DAILY #30 tab 12/14/16 Acetaminophen [Tylenol] 650 mg PO Q6HR PRN tablet 05/09/17 Acetaminophen/Butalbital/Caffe 1 tab PO DAILY PRN #10 05/09/17 [Fioricet] HYDROcodone/Acet 5/325 mg [[place] 1 tab PO DAILY PRN 10 Days #5 05/09/17 5-325 mg] Allergies Allergy/AdvReac Type Severity Reaction Status Date / Time Erythromycin Base Allergy See Verified 12/18/16 06:31 Comments Penicillins Allergy See Verified 12/18/16 06:31 Comments Sulfa (Sulfonamide AdvReac See Verified 12/18/16 06:31 Antibiotics) Comments All systems ED: reviewed and negative except as stated. Constitutional: Denies: fever, chills, weakness, weight change Eyes: Denies: eye pain, eye discharge, vision change ENT ED: Denies: ear pain, throat pain, dental pain, hearing loss, epistaxis, congestion, dysphagia Cardiovascular: Denies: chest pain, palpitations, dyspnea on exertion, edema, syncope Respiratory: Denies: cough, dyspnea, wheezes, hemoptysis, stridor Gastrointestinal: Reports: as per HPI, nausea, vomiting. Denies: abdominal pain , diarrhea, constipation, hematemesis, melena, hematochezia Genitourinary: Denies: dysuria, frequency, hematuria, discharge Musculoskeletal: Denies: back pain, neck pain, arthralgia, myalgia Integumentary: Denies: rash, abrasion, lesions Neurological: Reports: as per HPI, headache. Denies: weakness, numbness, paresthesias, confusion, abnormal gait, vertigo Psychiatric: Denies: anxiety, depression, suicidal thoughts, homicidal thoughts , auditory hallucinations, visual hallucinations Endocrine: Denies: fatigue Hematological/Lymphatic: Denies: easy bleeding, easy bruising Allergic/Immunologic: Denies: facial swelling, urticaria Past Medical History - Past Medical History Attestation: Yes The following information was validated with the patient. Source: patient, nursing notes reviewed Medical history: Reports: dialysis, GERD, hyperlipidemia, hypertension, renal disease, other Surgical history: Reports: knee replacement, other Psychiatric history: Reports: no psych history - Social History Smoking Status: Never smoker Smokeless Tobacco Status: No Alcohol use: Reports: none Drug use: Reports: none Physical Exam - General Limitations: age General appearance: alert - Head Head exam: atraumatic, normocephalic, normal inspection - Eye Eye exam: Present: normal appearance, EOMI. Absent: nystagmus - Expanded Eye Exam Pupils: Left: size (4), Right: size (2) - ENT ENT exam: mucous membranes moist - Neck Neck exam: Present: normal inspection, full ROM, trachea midline. Absent: lymphadenopathy - Chest Chest inspection: Present: normal inspection, symmetric chest wall rise - Respiratory Respiratory exam: Present: normal lung sounds bilaterally. Absent: respiratory distress, wheezes, stridor, accessory muscle use, prolonged expiratory phase - Cardiovascular Cardiovascular exam: Present: regular rate, normal rhythm, normal heart sounds - Abdominal Exam Abdominal exam: Present: soft, Non-Tender, normal bowel sounds - Extremities Exam Extremities exam: Present: normal inspection, full ROM. Absent: tenderness, pedal edema - Neurological Exam Neurological exam: Present: alert - Expanded Neurological Exam Patient oriented to: Present: person, place Speech: Present: fluid speech Cranial nerves: EOM function (II, III, IV, ): Normal, facial palsy (VII): Normal, tongue deviation (XII): Normal Motor strength - LUE: 5/5 Motor strength - RUE: 5/5 Motor strength - LLE: 5/5 Motor strength - RLE: 5/5 Coma Scale Eye Opening: Spontaneous Coma Scale Motor Response: Obeys Commands Coma Scale Verbal Response: Oriented Coma Scale Total: 15 - Psychiatric Psychiatric exam: Present: normal affect, normal mood - Skin Skin exam: Present: warm, dry, intact, normal color. Absent: rash Course Course Narrative: 1045: The patient's nurse, Katherine, has spoken with staff at [facility]. Staff states that the patient has a history of chronic headaches. Staff states that the patient had an MRI performed 2 days ago and was evaluated by her neurologist (for which she follows with for her chronic headaches). [facility] staff stated that the MRI was negative, although I am unable to review any MRI details through [employer], as there are none listed. [facility] staff also states that the patient was at that time began on gabapentin. [facility] also states that the patient does normally have a "mild tremor" in her arms and hands however states that this is somewhat more noticeable over the last several days. Vital Signs Temperature 97.8 F 09/13/17 10:14 Pulse Rate 71 09/13/17 10:14 Respiratory Rate 16 09/13/17 10:14 Blood Pressure 124/61 09/13/17 10:14 O2 Sat by Pulse Oximetry 99 09/13/17 10:14 Temperature 97.8 F 09/13/17 10:14 Pulse Rate 68 09/13/17 11:25 Respiratory Rate 16 09/13/17 11:25 Blood Pressure 149/95 09/13/17 11:25 O2 Sat by Pulse Oximetry 100 09/13/17 11:25 Oxygen Delivery Oxygen Delivery Room Air Medical Decision Making - Medical Records Medical records reviewed: Yes I reviewed the patient's medical records. - Lab Data Lab results reviewed: Yes I reviewed the patient's lab results. Result diagrams: 09/13/17 10:41 09/13/17 10:41 Lab Results 09/13/17 09/13/17 09/13/17 Range/Units 10:41 10:41 10:41 WBC 7.2 (4.3-11.1) K/mcL RBC 3.49 L (3.82-4.97) M/mcL Hgb 10.7 L (11.5-15.4) g/dL Hct 33.4 L (35.3-44.9) % MCV 95.7 (83.0-100.0) fL MCH 30.7 (28.0-33.3) pg MCHC 32.0 (31.6-35.5) g/dL RDW 15.2 H (11.5-14.5) % Plt Count 227 (140-400) K/mcL MPV 9.8 (9.4-12.4) fL Immature Gran % 1.1 (0-4) % Seg Neutrophils % 78.8 % Lymphocytes % 11.3 % Monocytes % 7.1 % Eosinophils % 1.1 % Basophils % 0.6 % Neutrophils # 5.7 (1.6-8.9) K/mcL Lymphocytes # 0.8 (0.6-4.6) K/mcL Monocytes # 0.5 (0.0-1.3) K/mcL Eosinophils # 0.1 (0.0-0.6) K/mcL Basophils # 0.0 (0.0-0.2) K/mcL PT 10.5 (9.4-12.1) Seconds INR 1.0 APTT 32.2 (26.0-36.0) Seconds Sodium 135 L (136-145) mEq/L Potassium 5.0 (3.5-5.1) mEq/L Chloride 96 L (98-107) mEq/L Carbon Dioxide 27 (23-29) mEq/L BUN 44 H (8-23) mg/dL Creatinine 5.29 H (0.60-1.20) mg/dL Est GFR ( Amer) 9 L (> 60) Est GFR (Non-Af Amer) 8 L (> 60) BUN/Creatinine Ratio 8 (6-26) Glucose 100 (70-105) mg/dL Calculated Osmolality 291 (280-300) Lactic Acid (0.5-2.2) mmol/L Calcium 9.5 (8.6-10.3) mg/dL Total Bilirubin 0.4 (0.3-1.0) mg/dL AST 18 (13-39) Units/L ALT 9 (7-52) Units/L Alkaline Phosphatase 87 (34-104) Units/L Troponin I < 0.03 (< 0.04) ng/mL Serum Total Protein 7.1 (6.4-8.9) g/dL Albumin 3.8 (3.5-5.7) g/dL Globulin 3.3 (2.4-3.5) g/dL Albumin/Globulin Ratio 1.2 (1.1-2.2) Lipase 16 (11-82) Units/L // Range/Units 10:41 WBC (4.3-11.1) K/mcL RBC (3.82-4.97) M/mcL Hgb (11.5-15.4) g/dL Hct (35.3-44.9) % MCV (83.0-100.0) fL MCH (28.0-33.3) pg MCHC (31.6-35.5) g/dL RDW (11.5-14.5) % Plt Count (140-400) K/mcL MPV (9.4-12.4) fL Immature Gran % (0-4) % Seg Neutrophils % % Lymphocytes % % Monocytes % % Eosinophils % % Basophils % % Neutrophils # (1.6-8.9) K/mcL Lymphocytes # (0.6-4.6) K/mcL Monocytes # (0.0-1.3) K/mcL Eosinophils # (0.0-0.6) K/mcL Basophils # (0.0-0.2) K/mcL PT (9.4-12.1) Seconds INR APTT (26.0-36.0) Seconds Sodium (136-145) mEq/L Potassium (3.5-5.1) mEq/L Chloride (98-107) mEq/L Carbon Dioxide (23-29) mEq/L BUN (8-23) mg/dL Creatinine (0.60-1.20) mg/dL Est GFR ( Amer) (> 60) Est GFR (Non-Af Amer) (> 60) BUN/Creatinine Ratio (6-26) Glucose (70-105) mg/dL Calculated Osmolality (280-300) Lactic Acid 0.9 (0.5-2.2) mmol/L Calcium (8.6-10.3) mg/dL Total Bilirubin (0.3-1.0) mg/dL AST (13-39) Units/L ALT (7-52) Units/L Alkaline Phosphatase (34-104) Units/L Troponin I (< 0.04) ng/mL Serum Total Protein (6.4-8.9) g/dL Albumin (3.5-5.7) g/dL Globulin (2.4-3.5) g/dL Albumin/Globulin Ratio (1.1-2.2) Lipase (11-82) Units/L - Radiology Data Radiology results reviewed: Yes I reviewed the patient's radiology results. - EKG Data EKG #1 EKG attestation: Yes I reviewed and interpreted this EKG. Catracho - Catracho Situation: Demographics, MOA Background: Presenting Complaint, Relevant PMH, Meds, & Allergies Assessment: Vital Signs, Course and respsone to treatment, Exam Concerns, Patient/Family Expectation, Pertinant Lab Results, Outstanding Labs Recommendation: Barrier(s) to disposition, Recommendation based on pending studies, treatments, or consults SViktoriya Report Given to: Dr. Marko Hayden Repor Time: 11:02 Attestation Statement - Attestation Attestation: I, Angelito Zhu DO have provided [id number] time during the care of this patient. Detailed review the presentation, symptoms, medical history were discussed and reviewed with the mid-level provider (John Galvin PA-C/PROPERTY SUPERVISOR. Medical intervention labs and imaging studies were reviewed in detail. See full documentation of physical exam and course of care in the mid-level provider 's note. I agree with the determined course of care, medical intervention and disposition put forth by the mid-level provider. See below documentation for changes or alterations in documentation.
[2017-09-13 10:51] LABS: Basophils % 0.6 %; Eosinophils # 0.1 K/mcL (0.0-0.6); Eosinophils % 1.1 %; Hematocrit 33.4 % (35.3-44.9); Hemoglobin 10.7 g/dL (11.5-15.4); Immature Granulocytes % 1.1 % (0-4); Lymphocytes # 0.8 K/mcL (0.6-4.6); Lymphocytes % 11.3 %; Mean Corpuscular Hemoglobin 30.7 pg (28.0-33.3); Mean Corpuscular Volume 95.7 fL (83.0-100.0); Mean Platelet Volume 9.8 fL (9.4-12.4); Monocytes # 0.5 K/mcL (0.0-1.3); Monocytes % 7.1 %; Neutrophils # 5.7 K/mcL (1.6-8.9); Platelet Count 227 K/mcL (140-400); Red Blood Count 3.49 M/mcL (3.82-4.97); Red Cell Distribution Width 15.2 % (11.5-14.5); Segmented Neutrophils % 78.8 %
[2017-09-13 10:58] LABS: Prothrombin Time 10.5 Seconds (9.4-12.1)
[2017-09-13 11:01] LABS: Activated Partial Thrombo Time 32.2 Seconds (26.0-36.0)
[2017-09-13 11:12] LABS: Troponin I < 0.03 ng/mL (< 0.04)
[2017-09-13 11:13] LABS: Alanine Aminotransferase 9 Units/L (7-52); Albumin 3.8 g/dL (3.5-5.7); Albumin/Globulin Ratio 1.2 (1.1-2.2); Alkaline Phosphatase 87 Units/L (34-104); Aspartate Amino Transferase 18 Units/L (13-39); BUN/Creatinine Ratio 8 (6-26); Bilirubin,Total 0.4 mg/dL (0.3-1.0); Blood Urea Nitrogen 44 mg/dL (8-23); Calcium 9.5 mg/dL (8.6-10.3); Carbon Dioxide 27 mEq/L (23-29); Chloride 96 mEq/L (98-107); Globulin 3.3 g/dL (2.4-3.5); Glucose 100 mg/dL (70-105); Lipase 16 Units/L (11-82); Osmolality,Calculated 291 (280-300); Sodium 135 mEq/L (136-145); Total Protein 7.1 g/dL (6.4-8.9); eGFR For African Americans 9 (> 60); eGFR For Non-African Americans 8 (> 60)
--- NOTE | 2017-09-13 11:57 | Emergency Department Note ---
Disposition Clinical Impression: Weakness Headache Qualifiers: Headache type: unspecified Headache chronicity pattern: unspecified pattern Intractability: not intractable Qualified Code(s): R51 - Headache Falls Qualifiers: Encounter type: initial encounter Qualified Code(s): W19.XXXA - Unspecified fall, initial encounter Disposition: Admitted As Inpatient Condition: Good Referrals: Landon Potts MD [Primary Care Provider] - Forms: ED Satisfaction Letter Time of Disposition: 12:07 General Adult HPI - General Chief complaint: ED Weakness Stated complaint: nausea/vomitting Time Seen by Provider: 09/13/17 10:12 Source: patient, EMS Mode of arrival: EMS Limitations: age - History of Present Illness Location: head Pain Scale: 7 Associated symptoms: Reports: headaches, nausea/vomiting, weakness. Denies: chest pain, cough, fever/chills, shortness of breath - Related Data Home Medications Medication Instructions Recorded Confirmed Docusate [Colace] 100 mg PO DAILY PRN 08/30/16 09/13/17 Famotidine [Pepcid] 20 mg PO DAILY 08/30/16 09/13/17 Loratadine [Claritin] 10 mg PO DAILY 08/30/16 09/13/17 Meclizine HCl [Verticalm] 25 mg PO TID PRN 08/30/16 09/13/17 Melatonin 5 mg PO HS 08/30/16 09/13/17 Ondansetron HCl [Zofran] 4 mg PO Q8H PRN 08/30/16 09/13/17 Pantoprazole Sodium [Protonix] 40 mg PO DAILY 08/30/16 09/13/17 Renal Vitamin [Renal Caps Softgel] 1 mg PO DAILY 08/30/16 09/13/17 Trospium Chloride 20 mg PO HS 08/30/16 09/13/17 Zinc Sulfate 220 mg PO DAILY 08/30/16 09/13/17 Ammonium Lactate 1 appl TP AD PRN 05/07/17 09/13/17 Atorvastatin [Lipitor] 10 mg PO HS 09/13/17 09/13/17 Gabapentin [Neurontin] 300 cap PO HS 09/13/17 09/13/17 Sevelamer HCl [Renagel] 800 tab PO TID 09/13/17 09/13/17 Previous Rx's Medication Instructions Recorded Acetaminophen [Tylenol] 650 mg PO Q6HR PRN #120 tab 12/14/16 Aspirin Enteric Coated [Aspirin EC] 81 mg PO DAILY #30 tab 12/14/16 Acetaminophen [Tylenol] 650 mg PO Q6HR PRN tablet 05/09/17 Acetaminophen/Butalbital/Caffe 1 tab PO DAILY PRN #10 05/09/17 [Fioricet] HYDROcodone/Acet 5/325 mg [[place] 1 tab PO DAILY PRN 10 Days #5 05/09/17 5-325 mg] Allergies Allergy/AdvReac Type Severity Reaction Status Date / Time Erythromycin Base Allergy See Verified 12/18/16 06:31 Comments Penicillins Allergy See Verified 12/18/16 06:31 Comments Sulfa (Sulfonamide AdvReac See Verified 12/18/16 06:31 Antibiotics) Comments Constitutional: Denies: fever, chills, weakness, weight change Eyes: Denies: eye pain, eye discharge, vision change ENT ED: Denies: ear pain, throat pain, dental pain, hearing loss, epistaxis, congestion, dysphagia Cardiovascular: Denies: chest pain, palpitations, dyspnea on exertion, edema, syncope Respiratory: Denies: cough, dyspnea, wheezes, hemoptysis, stridor Gastrointestinal: Reports: as per HPI, nausea, vomiting. Denies: abdominal pain , diarrhea, constipation, hematemesis, melena, hematochezia Genitourinary: Denies: dysuria, frequency, hematuria, discharge Musculoskeletal: Denies: back pain, neck pain, arthralgia, myalgia Integumentary: Denies: rash, abrasion, lesions Neurological: Reports: as per HPI, headache. Denies: weakness, numbness, paresthesias, confusion, abnormal gait, vertigo Psychiatric: Denies: anxiety, depression, suicidal thoughts, homicidal thoughts , auditory hallucinations, visual hallucinations Endocrine: Denies: fatigue Hematological/Lymphatic: Denies: easy bleeding, easy bruising Allergic/Immunologic: Denies: facial swelling, urticaria Past Medical History - Past Medical History Medical history: Reports: dialysis, GERD, hyperlipidemia, hypertension, renal disease, other Surgical history: Reports: knee replacement, other Psychiatric history: Reports: no psych history - Social History Smoking Status: Never smoker Smokeless Tobacco Status: No Alcohol use: Reports: none Drug use: Reports: none Physical Exam - General Limitations: age General appearance: alert Course Vital Signs Temperature 97.8 F 09/13/17 10:14 Pulse Rate 71 09/13/17 10:14 Respiratory Rate 16 09/13/17 10:14 Blood Pressure 124/61 09/13/17 10:14 O2 Sat by Pulse Oximetry 99 09/13/17 10:14 Temperature 97.8 F 09/13/17 10:14 Pulse Rate 68 09/13/17 11:25 Respiratory Rate 16 09/13/17 11:25 Blood Pressure 149/95 09/13/17 11:25 O2 Sat by Pulse Oximetry 100 09/13/17 11:25 Oxygen Delivery Oxygen Delivery Room Air Medical Decision Making - Lab Data Result diagrams: 09/13/17 10:41 09/13/17 10:41 Lab Results 09/13/17 09/13/17 09/13/17 Range/Units 10:41 10:41 10:41 WBC 7.2 (4.3-11.1) K/mcL RBC 3.49 L (3.82-4.97) M/mcL Hgb 10.7 L (11.5-15.4) g/dL Hct 33.4 L (35.3-44.9) % MCV 95.7 (83.0-100.0) fL MCH 30.7 (28.0-33.3) pg MCHC 32.0 (31.6-35.5) g/dL RDW 15.2 H (11.5-14.5) % Plt Count 227 (140-400) K/mcL MPV 9.8 (9.4-12.4) fL Immature Gran % 1.1 (0-4) % Seg Neutrophils % 78.8 % Lymphocytes % 11.3 % Monocytes % 7.1 % Eosinophils % 1.1 % Basophils % 0.6 % Neutrophils # 5.7 (1.6-8.9) K/mcL Lymphocytes # 0.8 (0.6-4.6) K/mcL Monocytes # 0.5 (0.0-1.3) K/mcL Eosinophils # 0.1 (0.0-0.6) K/mcL Basophils # 0.0 (0.0-0.2) K/mcL PT 10.5 (9.4-12.1) Seconds INR 1.0 APTT 32.2 (26.0-36.0) Seconds Sodium 135 L (136-145) mEq/L Potassium 5.0 (3.5-5.1) mEq/L Chloride 96 L (98-107) mEq/L Carbon Dioxide 27 (23-29) mEq/L BUN 44 H (8-23) mg/dL Creatinine 5.29 H (0.60-1.20) mg/dL Est GFR ( Amer) 9 L (> 60) Est GFR (Non-Af Amer) 8 L (> 60) BUN/Creatinine Ratio 8 (6-26) Glucose 100 (70-105) mg/dL Calculated Osmolality 291 (280-300) Lactic Acid (0.5-2.2) mmol/L Calcium 9.5 (8.6-10.3) mg/dL Total Bilirubin 0.4 (0.3-1.0) mg/dL AST 18 (13-39) Units/L ALT 9 (7-52) Units/L Alkaline Phosphatase 87 (34-104) Units/L Troponin I < 0.03 (< 0.04) ng/mL Serum Total Protein 7.1 (6.4-8.9) g/dL Albumin 3.8 (3.5-5.7) g/dL Globulin 3.3 (2.4-3.5) g/dL Albumin/Globulin Ratio 1.2 (1.1-2.2) Lipase 16 (11-82) Units/L /14/18 Range/Units 10:41 WBC (4.3-11.1) K/mcL RBC (3.82-4.97) M/mcL Hgb (11.5-15.4) g/dL Hct (35.3-44.9) % MCV (83.0-100.0) fL MCH (28.0-33.3) pg MCHC (31.6-35.5) g/dL RDW (11.5-14.5) % Plt Count (140-400) K/mcL MPV (9.4-12.4) fL Immature Gran % (0-4) % Seg Neutrophils % % Lymphocytes % % Monocytes % % Eosinophils % % Basophils % % Neutrophils # (1.6-8.9) K/mcL Lymphocytes # (0.6-4.6) K/mcL Monocytes # (0.0-1.3) K/mcL Eosinophils # (0.0-0.6) K/mcL Basophils # (0.0-0.2) K/mcL PT (9.4-12.1) Seconds INR APTT (26.0-36.0) Seconds Sodium (136-145) mEq/L Potassium (3.5-5.1) mEq/L Chloride (98-107) mEq/L Carbon Dioxide (23-29) mEq/L BUN (8-23) mg/dL Creatinine (0.60-1.20) mg/dL Est GFR ( Amer) (> 60) Est GFR (Non-Af Amer) (> 60) BUN/Creatinine Ratio (6-26) Glucose (70-105) mg/dL Calculated Osmolality (280-300) Lactic Acid 0.9 (0.5-2.2) mmol/L Calcium (8.6-10.3) mg/dL Total Bilirubin (0.3-1.0) mg/dL AST (13-39) Units/L ALT (7-52) Units/L Alkaline Phosphatase (34-104) Units/L Troponin I (< 0.04) ng/mL Serum Total Protein (6.4-8.9) g/dL Albumin (3.5-5.7) g/dL Globulin (2.4-3.5) g/dL Albumin/Globulin Ratio (1.1-2.2) Lipase (11-82) Units/L Attestation Statement - Attestation Attestation: I, Angelito Zhu DO have provided [id number] time during the care of this patient. Detailed review the presentation, symptoms, medical history were discussed and reviewed with the mid-level provider John Galvin PA-C/SECURITY AND COMPLIANCE ANALYST. Medical intervention labs and imaging studies were reviewed in detail. See full documentation of physical exam and course of care in the mid-level provider's note. I agree with the determined course of care, medical intervention and disposition put forth by the mid-level provider. See below documentation for changes or alterations in documentation. 78-year-old female [facility] and evaluated for what appears to be generalized weakness. Patient chronically lives her secondary to chronic medical issues. She is currently on dialysis. She goes Sunday and is followed up by Dr. Cleaning . Dr. Cleaning contacted our emergency room and the recommendations. Patient otherwise has no other complaints or issues at this time. She feels that it is to the point now where she is unable to walk even using her walker. She denies any numbness or tingling. She did fall and hit her head several weeks ago never had imaging completed at time. She said that she was seen by neurology as well as previous evaluation here in the emergency room within the last week where they did imaging of the left and documented in our system at this point. There is concerned about the integrity of the information being provided from the patient. Otherwise she is alert and oriented to time and place. She follows commands appropriately. Patient denies any chest pain shortness of breath headache vision changes nausea vomiting or diarrhea. Denies any fevers or chills. The only change recently is the addition of gabapentin to her medication regimen Head is atraumatic she does have a little anisocoria between the eyes at this time. There is no focal deficits or vision changes. She follows commands appropriately uses her upper and lower extremities with appropriate dexterity despite some weakness in the bilateral lower extremities. She also describes bilateral lower stomach pain. She was just started on gabapentin 2 days ago. Unlikely the etiology to the generalized weakness here today but it could be exacerbating the symptoms. Because of a context of presentation as well as the multiple factors that have included a fall as well as inability to walk patient will have CT imaging of the head chest x-ray labs including blood cultures CBC chemistry troponin and BNP magnesium phosphorus and calcium were ordered here. Urinalysis will also be collected. Patient has no other findings on physical exam her lungs are clear heart is regular abdomen is soft nontender nondistended with no guarding no rigidity. She has mild swelling to the bilateral lower extremities but good pulses in the bilateral legs. She has no signs of pitting edema or vascular insufficiency. Patient will require admission wants a full workup and treatment course are completed. Disposition to be decided this. See detailed documentation of physical exam, medical intervention, medical decision-making and disposition in the mid-level provider's note. Local care by the patient's treatment course at this time. 1145 CT imaging of the head is unremarkable this time. Labs are coming back stable this point. No acute signs of infectious etiology. Neurologist was contacted. Other recommendations at this point. Admission process will be completed for generalized weakness along with unknown etiology which could be in medications versus metabolic related issues. Patient will be observed here in the emergency room until admission process is completed. 1205 Patient is otherwise clinically stable. Review the labs imaging in the context of the presentation here with the hospitalist Dr. Bajwa. No other recommendations at this time. Thyroid function as well as magnesium are still pending on the patient here until that is completed. Otherwise patient will be admitted for detailed evaluation
[2017-09-13] MEDS ORDERED: Ondansetron ODT 4 MG TAB.RAPDIS PO PRN (12:25)
[2017-09-13] MEDS ORDERED: *HR* HYDROcodone/Acet 5/325 mg TABLET PO PRN (12:25)
[2017-09-13 12:26] LABS: Thyroid Stimulating Hormone 1.312 mcIU/mL (0.340-5.600)
[2017-09-13] MEDS ORDERED: Naloxone 0.4 MG/ML INJ IVP PRN (12:26)
--- NOTE | 2017-09-13 12:32 | Internal Med History&Physical ---
Date of Encounter: 09/13/17 Time of Encounter: 12:28 Internal Medicine - H&P: HPI Chief complaint: Generalized weakness History of present illness: Ms. Lynne is a 86 year old female with a history of ESRD on Mondays dialysis, hyperlipidemia, reflux disease who presents with acute one- day onset of generalized weakness leading to observation in the hospital. She has been a skilled nursing resident and uses a walker to ambulate. She reports being well previously until today when she woke up this morning. She describes a generalized weakness both upper and lower extremity and does not want to move leading to ER presentation as it has not got better with time. In her own words she describes herself as "feeling like I am paralyze but I can move". On review she denies any diarrhea or any fevers chills or cough or any infectious etiology. There is no overt complaint of muscle soreness but just felt like she was weak all around. On review she describes a nonspecific sensation of blurry vision in both eyes EKG personally reviewed with rate of 69, normal sinus rhythm FINDINGS: BRAIN/VENTRICLES: There is no acute intracranial hemorrhage, mass effect or midline shift. No abnormal extra-axial fluid collection. The kennedy-white differentiation is maintained without evidence of an acute infarct. There is no evidence of hydrocephalus. Generalized age-appropriate cortical atrophy. No intracranial mass is identified. Periventricular and deep white matter low attenuation is seen, with a similar distribution to the previous examination. No wedge-shaped area of acute ischemia is identified. ORBITS: The visualized portion of the orbits demonstrate no acute abnormality. SINUSES: Prior maxillary antrostomy noted. Chronic paranasal sinus disease noted within the right frontal sinus and frontoethmoidal recess. No air-fluid levels are identified. Mild mucoperiosteal thickening seen in the right maxillary sinus. Mastoid air cells are well aerated. SOFT TISSUES/SKULL: No acute abnormality of the visualized skull or soft tissues. CT/CT head/brain wo con IMPRESSION: Stable appearing CT scan of the head without acute intracranial abnormality. Chronic microvascular ischemic changes and generalized age-appropriate cortical atrophy noted. FINDINGS: Stable linear likely scarring to the left lower lung zone. No focal consolidations, pleural effusions or pulmonary edema. No pneumothoraces. Cardiac and mediastinal silhouettes are within normal limits and stable. No acute bony abnormalities. Redemonstration of left glenohumeral prosthesis, partially imaged. XR/XR chest 1V portable IMPRESSION: No evidence for acute cardiopulmonary process. Past Med Surg Social Fam HX - Past Medical History Medical history: dialysis, GERD, hyperlipidemia, hypertension, renal disease, other Additional medical history: Anemia, Osteoarthritis, Psychiatric history: no psych history - Past Surgical History Surgical History: knee replacement, other Additional surgical history: L ARM FISTULA - Social History Smoking Status: Never smoker Smokeless Tobacco Status: No Alcohol use: none Drug use: none - Family History Mother Family Member Ethnicity: Non- Living Status: Hx Family Cardiac Disorders: Yes Father Family Member Ethnicity: Non- Living Status: Hx Family Cardiac Disorders: Yes (HD) Brother Family Member Ethnicity: Non- Living Status: Hx Family Cardiac Disorders: Yes (HD) Sister History Unknown: Yes Adopted: No Family Member Ethnicity: Non- Living Status: Hx Family Cardiac Disorders: Yes (HD) Internal Medicine - H&P: Meds Docusate [Colace] 100 mg PO DAILY PRN 08/30/16 [History] Famotidine [Pepcid] 20 mg PO DAILY 08/30/16 [History] Loratadine [Claritin] 10 mg PO DAILY 08/30/16 [History] Meclizine HCl [Verticalm] 25 mg PO TID PRN 08/30/16 [History] Melatonin 5 mg PO HS 08/30/16 [History] Ondansetron HCl [Zofran] 4 mg PO Q8H PRN 08/30/16 [History] Pantoprazole Sodium [Protonix] 40 mg PO DAILY 08/30/16 [History] Renal Vitamin [Renal Caps Softgel] 1 mg PO DAILY 08/30/16 [History] Trospium Chloride 20 mg PO HS 08/30/16 [History] Zinc Sulfate 220 mg PO DAILY 08/30/16 [History] Acetaminophen [Tylenol] 650 mg PO Q6HR PRN #120 tab 12/14/16 [Rx] Aspirin Enteric Coated [Aspirin EC] 81 mg PO DAILY #30 tab 12/14/16 [Rx] Ammonium Lactate 1 appl TP AD PRN 05/07/17 [History] Acetaminophen [Tylenol] 650 mg PO Q6HR PRN tablet 05/09/17 [Rx] Acetaminophen/Butalbital/Caffe [Fioricet] 1 tab PO DAILY PRN #10 05/09/17 [Rx] HYDROcodone/Acet 5/325 mg [[place] 5-325 mg] 1 tab PO DAILY PRN 10 Days #5 [Rx] Atorvastatin [Lipitor] 10 mg PO HS 09/13/17 [History] Gabapentin [Neurontin] 300 cap PO HS 09/13/17 [History] Sevelamer HCl [Renagel] 800 tab PO TID 09/13/17 [History] 3 Allergy/AdvReac Type Severity Reaction Status Date / Time Erythromycin Base Allergy See Verified 12/18/16 06:31 Comments Penicillins Allergy See Verified 12/18/16 06:31 Comments Sulfa (Sulfonamide AdvReac See Verified 12/18/16 06:31 Antibiotics) Comments All Systems PM: A 10-system review of systems was performed and is negative for pertinent findings except as documented above in the HPI. Review of systems: ROS 14 point review of systems reviewed as best as possible given presentation. Pertinent positive or negative as per HPI or otherwise reviewed as negative - Constitutional Vitals: Temp Pulse Resp BP Pulse Ox 97.8 F 68 16 149/95 100 09/13/17 10:14 09/13/17 11:25 09/13/17 11:25 09/13/17 11:25 09/13/17 11:25 Exam: General - AAO x 3 Psych - Appropriate affect/speech. No agitation Eyes - GHAZALA. Eye lids intact. No scleral icterus Neuro - No gross focal peripheral or central neuro deficits. Generalized weakness in both upper and lower extremity 4 minus out of 5 power. Heart - Sinus. RRR. S1 and S2 present. No added HS/murmurs appreciated. No elevated JVD appreciated. Lung - Adequate air entry b/l, No crackles/wheezes appreciated GI - Soft, non-tender. No hepatosplenomegaly/ascites. BS+ - No CVA/suprapubic tenderness or palpable bladder distension Skin - left upper extremity AV fistula. No rash/petechiae/ecchymosis. Warm extremities. +1 bilateral lower extremity edema Internal Med - H&P Results - Labs CBC & Chem 7: 09/13/17 10:41 09/13/17 10:41 - Assessment and plan (1) Generalized weakness Current Visit: Yes Status: Acute Assessment and plan: Acute onset generalized weakness. We will work her up for the following. CPK to rule out polymyositis Thyroid function testing screen ESR screen for polymyalgia rheumatica I doubt she has a UTI given that she is on dialysis and is oliguric ED sent surveillance blood cultures. She has a left upper extremity AV fistula access On clinical examination , no focal examination to suspect CVA Chest x-ray on admission and CT head was unremarkable (2) ESRD (end stage renal disease) Current Visit: Yes Status: Acute Assessment and plan: Consult nephrology for Sunday and Fridays dialysis (3) GERD (gastroesophageal reflux disease) Current Visit: No Status: Chronic Assessment and plan: Continue medicines Qualifiers: Esophagitis presence: without esophagitis Qualified Code(s): K21.9 - Gastro -esophageal reflux disease without esophagitis (4) HLD (hyperlipidemia) Current Visit: No Status: Chronic Assessment and plan: Checking CPK on statin Qualifiers: Hyperlipidemia type: mixed hyperlipidemia Qualified Code(s): E78.2 - Mixed hyperlipidemia - Time Spent With Patient Total time spent is greater than 50% in coordination of care (as documented) at patient's floor/unit and/or counseling patient:
[2017-09-13 13:42] LABS: Magnesium 2.2 mg/dL (1.6-2.6)
[2017-09-13] MEDS: Melatonin 3 MG TABLET PO SCH (22:17)
[2017-09-13] MEDS: Gabapentin 300 MG CAPSULE PO SCH (22:17)
[2017-09-14 03:34] LABS: Basophils % 0.6 %; Eosinophils # 0.2 K/mcL (0.0-0.6); Eosinophils % 2.9 %; Immature Granulocytes % 0.6 % (0-4); Lymphocytes # 1.7 K/mcL (0.6-4.6); Lymphocytes % 26.7 %; Mean Corpuscular HGB Conc 32.1 g/dL (31.6-35.5); Mean Corpuscular Hemoglobin 30.1 pg (28.0-33.3); Mean Corpuscular Volume 93.6 fL (83.0-100.0); Mean Platelet Volume 9.8 fL (9.4-12.4); Monocytes # 0.7 K/mcL (0.0-1.3); Monocytes % 10.5 %; Neutrophils # 3.8 K/mcL (1.6-8.9); Platelet Count 207 K/mcL (140-400); Red Blood Count 2.99 M/mcL (3.82-4.97); Red Cell Distribution Width 15.1 % (11.5-14.5); Segmented Neutrophils % 58.7 %
[2017-09-14 03:48] LABS: Phosphorous 5.7 mg/dL (2.7-4.5); Potassium 5.3 mEq/L (3.5-5.1)
[2017-09-14] MEDS ORDERED: *HR* HYDROcodone/Acet 5/325 mg TABLET PO PRN (07:41)
[2017-09-14] MEDS: Aspirin Enteric Coated 81 MG Tablet PO SCH (08:20)
[2017-09-14] MEDS: Renal Vitamin 1 MG CAPSULE PO SCH (08:20)
[2017-09-14] MEDS ORDERED: Famotidine 20 MG TABLET PO SCH (09:00)
[2017-09-14] MEDS ORDERED: 0.9 % Sodium Chloride 250 ML IVC PRN (10:21)
[2017-09-14] MEDS ORDERED: 0.9 % Sodium Chloride 1,000 ML PRIME SCH (10:30)
--- NOTE | 2017-09-14 12:16 | Nephrology Consult Note ---
Date of Encounter: 09/14/17 Time of Encounter: 11:15 Assessment and Plan (1) ESRD (end stage renal disease) on dialysis Current Visit: No Status: Chronic HD today, keeping MWF schedule. Orders given. History of Present Illness - Reason for Consult end stage renal disease - History of Present Illness Ms. Lynne is a 86 year old female with ESRD who dialyzes at [facility] on MWF. Last dialysis on Sunday. She presented to ER with persistent headache and blurry vision from nursing facility. She did have emesis, denies any associated abdominal pain, fever, chills, urinary symptoms, diarrhea, or constipation. Other PMH- GERD, hyperlipidemia, hypertension, renal disease, Anemia, Osteoarthritis. She was recently evaluated by neurology and started on Gabapentin. MRI of head per nursing facility was negative. CT-head without acute intracranial abnormality. Chronic microvascular ischemic changes and generalized age-appropriate cortical atrophy noted. Past Med Surg Social Fam HX - Past Medical History Medical history: dialysis, GERD, hyperlipidemia, hypertension, renal disease, other Additional medical history: Anemia, Osteoarthritis, Psychiatric history: no psych history - Past Surgical History Surgical History: knee replacement, other Additional surgical history: L ARM FISTULA - Social History Smoking Status: Never smoker Smokeless Tobacco Status: No Alcohol use: none Drug use: none - Family History Mother Family Member Ethnicity: Non- Living Status: Hx Family Cardiac Disorders: Yes Father Family Member Ethnicity: Non- Living Status: Hx Family Cardiac Disorders: Yes (HD) Brother Family Member Ethnicity: Non- Living Status: Hx Family Cardiac Disorders: Yes (HD) Sister History Unknown: Yes Adopted: No Family Member Ethnicity: Non- Living Status: Hx Family Cardiac Disorders: Yes (HD) Medications and Allergies Docusate [Colace] 100 mg PO BID PRN 08/30/16 [History] Famotidine [Pepcid] 20 mg PO HS 08/30/16 [History] Loratadine [Claritin] 10 mg PO DAILY 08/30/16 [History] Melatonin 5 mg PO HS 08/30/16 [History] Pantoprazole Sodium [Protonix] 40 mg PO DAILY 08/30/16 [History] Renal Vitamin [Renal Caps Softgel] 1 mg PO DAILY 08/30/16 [History] Trospium Chloride 20 mg PO HS 08/30/16 [History] Zinc Sulfate 220 mg PO DAILY 08/30/16 [History] Acetaminophen [Tylenol] 650 mg PO Q6HR PRN #120 tab 12/14/16 [Rx] Aspirin Enteric Coated [Aspirin EC] 81 mg PO DAILY #30 tab 12/14/16 [Rx] Ammonium Lactate 1 appl TP AD PRN 05/07/17 [History] Acetaminophen/Butalbital/Caffe [Fioricet] 1 tab PO DAILY PRN #10 05/09/17 [Rx] HYDROcodone/Acet 5/325 mg [[place] 5-325 mg] 1 tab PO DAILY PRN 10 Days #5 [Rx] Atorvastatin [Lipitor] 10 mg PO HS 09/13/17 [History] Gabapentin [Neurontin] 300 mg PO HS 09/13/17 [History] Sevelamer HCl [Renagel] 800 mg PO TID 09/13/17 [History] 3 Allergy/AdvReac Type Severity Reaction Status Date / Time Erythromycin Base Allergy See Verified 09/13/17 12:43 Comments Penicillins Allergy See Verified 09/13/17 12:43 Comments menthol [From BenGay] AdvReac Rash Verified 09/13/17 12:43 methyl salicylate AdvReac Rash Verified 09/13/17 12:43 [From BenGay] Sulfa (Sulfonamide AdvReac See Verified 09/13/17 12:43 Antibiotics) Comments Exam - Vital Signs Vital signs: Initial Vital Signs Temp Pulse Resp BP Pulse Ox 97.8 F 71 16 124/61 99 09/13/17 10:14 09/13/17 10:14 09/13/17 10:14 09/13/17 10:14 09/13/17 10:14 Vital Signs - Last 8 Hours Temp Pulse Resp BP Pulse Ox 09/14/17 11:43 97.6 F 70 15 111/66 95 09/14/17 07:21 97.5 F L 69 16 113/66 96 09/14/17 04:53 98.0 F 71 18 114/66 95 Intake and Output 09/13/17 09/14/17 09/14/17 23:59 07:59 15:59 Intake Total 0 / 0 Output Total 0 / 0 Balance 0 / 0 Intake: Oral 0 / 0 Output: Urine 0 / 0 Other: Weight 80.9 kg Patient Weight 09/14/17 23:59 Weight 80.9 kg - General Appearance General appearance: well-developed, well-nourished, appears started age EENT: mucous membranes moist Neck: no JVD Respiratory: clear Cardiology: edema, regular rate, regular rhythm - Dialysis Access Dialysis Vascular Access: Arteriovenous Fistula Gastrointestinal: normoactive bowel sounds, no tenderness Integumentary: warm and dry Psychiatric: mood/affect appropriate, cooperative Results - Lab Results 09/14/17 03:15 09/14/17 03:15 Most recent lab results Calcium 9.0 mg/dL (8.6-10.3) 09/14/17 03:15 Phosphorus 5.7 mg/dL (2.7-4.5) H 09/14/17 03:15 Magnesium 2.2 mg/dL (1.6-2.6) 09/13/17 11:39 Consult Discharge Plan - Plan Referrals: Landon Potts MD [Primary Care Provider] -
[2017-09-14 12:19] LABS: Hepatitis B Surface Antigen Nonreactive (Nonreactive)
[2017-09-14] MEDS ORDERED: 0.9 % Sodium Chloride 1,000 ML ONE ×2 (14:04→21:18)
--- NOTE | 2017-09-14 17:07 | Internal Med Progress Note ---
Date of Encounter: 09/14/17 Time of Encounter: 09:00 - Assessment and plan (1) Generalized weakness Current Visit: Yes Status: Acute Assessment and plan: No etiology at this time; no source of infection- chest XRay no PNA, blood cultures negative, Influenza negative; TFTs normal ESR mildly elevated at 46; d/w Rheumatology- check CRP, low suspicion of PMR; PT/OT evaluation; (2) GERD (gastroesophageal reflux disease) Current Visit: Yes Status: Chronic Qualifiers: Esophagitis presence: esophagitis presence not specified Qualified Code(s) : K21.9 - Gastro-esophageal reflux disease without esophagitis (3) HLD (hyperlipidemia) Current Visit: Yes Status: Chronic Qualifiers: Hyperlipidemia type: unspecified Qualified Code(s): E78.5 - Hyperlipidemia , unspecified (4) ESRD (end stage renal disease) Current Visit: Yes Status: Chronic Assessment and plan: Nephrology on board, HD today; continue home meds; (5) HTN (hypertension) Current Visit: Yes Status: Chronic Qualifiers: Hypertension type: essential hypertension Qualified Code(s): I10 - Essential (primary) hypertension - Time Spent With Patient Total time spent is greater than 50% in coordination of care (as documented) at patient's floor/unit and/or counseling patient: - Subjective Interval history: Reports feeling exhausted; lack of energy and "she does not feel like moving a muscle"; no chest pain, shortness of breath, palpitations; awaiting HD today; - Constitutional Vitals: Temp Pulse Resp BP Pulse Ox 97.7 F 68 17 116/56 96 09/14/17 15:58 09/14/17 15:58 09/14/17 15:58 09/14/17 15:58 09/14/17 15:58 General appearance: Present: A&O X 3, answers questions appropriately - Respiratory Respiratory exam: Present: CTAB. Absent: accessory muscle use, rales, rhonchi, wheezes - Cardiovascular Cardiovascular exam: Present: RRR, +S1, +S2. Absent: diastolic murmur, gallop, rubs, systolic murmur - GI/Abdominal GI/Abdominal exam: Present: normal bowel sounds, soft, no peritoneal signs. Absent: distended, tenderness - Extremities Exam Extremities exam: Present: warm, radial pulses palpable and symmetrical. Absent : calf tenderness, cyanotic, pedal edema - Neurological Exam Neurological exam: Present: CN II-XII intact, oriented X3, no focal deficits. Absent: pronater drift, facial droop, speech deficit Internal Medicine: Result - Labs CBC & Chem 7: 09/14/17 03:15 09/14/17 03:15 Labs: Short CBC 09/14/17 Range/Units 03:15 WBC 6.5 (4.3-11.1) K/mcL Hgb 9.0 L D (11.5-15.4) g/dL Hct 28.0 L (35.3-44.9) % Plt Count 207 (140-400) K/mcL Neutrophils # 3.8 (1.6-8.9) K/mcL BMP 09/14/17 03:15 Sodium 134 L Potassium 5.3 H Chloride 96 L Carbon Dioxide 25 BUN 61 H Creatinine 6.74 H Glucose 96 Calcium 9.0 - ABG Interpretation ABG results: PT/INR, D-dimer PT 10.5 Seconds (9.4-12.1) 09/13/17 10:41 Consult Discharge Plan - Plan Referrals: Landon Potts MD [Primary Care Provider] -
[2017-09-14] MEDS ORDERED: *HR* Heparin 5,000 UNIT/ML VIAL ONE (17:27)
--- NOTE | 2017-09-14 17:44 | IR Procedure Note ---
Date of procedure: 09/14/17 Consent Obtained: Verbal consent, Written consent Timeout: Correct patient and procedure verified, Correct site verified, Time out performed, Skin prep completed Local anesthetic: Lidocaine 1% Indications: ESRD Procedure Performed: temp HDC Was there an planning assistant present: No Site/Technique: R CFV Estimated blood loss (cc): 2 Complications: None; Tolerated procedure well Post Procedure Treatment Plan: KUB Specimen: none
[2017-09-14] MEDS: Melatonin 3 MG TABLET PO SCH (23:50)
[2017-09-14] MEDS: Gabapentin 300 MG CAPSULE PO SCH (23:50)
[2017-09-15] MEDS: Acetaminophen 325 MG TABLET PO PRN ×3 (00:30→16:45)
[2017-09-15] MEDS: Renal Vitamin 1 MG CAPSULE PO SCH (08:37)
[2017-09-15] MEDS: Aspirin Enteric Coated 81 MG Tablet PO SCH (08:37)
--- NOTE | 2017-09-15 09:10 | Nephrology Progress Note ---
Date of Encounter: 09/15/17 Time of Encounter: 08:55 - Assessment and Plan (1) ESRD (end stage renal disease) on dialysis Current Visit: No Status: Chronic No HD today, keeping MWF schedule. Subjective Interval history: Laying in bed, pleasantly confused. Dialysis staff unable to access AVF yesterday and temp cath placed in right fem. HD done late yesterday. Objective - Vital Signs Vital signs: Vital Signs Temp Pulse Resp BP Pulse Ox 09/15/17 06:57 97.9 F 70 18 102/63 96 09/15/17 03:44 97.9 F 72 18 118/70 97 09/15/17 00:43 97.9 F 72 18 106/64 97 09/14/17 21:46 97.0 F L 18 122/68 09/14/17 21:30 120/64 09/14/17 21:15 116/60 09/14/17 21:00 121/64 09/14/17 20:45 123/56 09/14/17 20:30 121/62 09/14/17 20:15 117/62 09/14/17 20:00 115/73 09/14/17 19:45 111/58 09/14/17 19:30 122/57 09/14/17 19:15 122/61 09/14/17 19:00 122/63 09/14/17 18:45 120/58 09/14/17 18:30 97.2 F L 18 123/62 09/14/17 15:58 97.7 F 68 17 116/56 96 09/14/17 11:43 97.6 F 70 15 111/66 95 Intake and Output 09/14/17 09/15/17 09/15/17 23:59 07:59 15:59 Intake Total 840 / 840 120 / 120 Output Total 3600 / 3600 0 / 0 Balance -2760 / -2760 120 / 120 Intake: Oral 240 / 240 120 / 120 Intake, Rinseback and Flushes 600 / 600 Output: Urine 0 / 0 0 / 0 Total Dialysis (HD) Output 3600 / 3600 Other: Meal Breakfast Percent of Meal Consumed 100% Hemodialysis Net Fluid Removed 3000 (mL) - General Appearance General appearance: Present: well-developed, well-nourished, appears started age EENT: Present: mucous membranes moist Neck: Present: no JVD Respiratory: Present: clear Cardiology: Present: edema, regular rate, regular rhythm Additional Comments: mild Dialysis Vascular Access: Venous Catheter Additional Comments: right fem Gastrointestinal: Present: normoactive bowel sounds, no tenderness Integumentary: Present: warm and dry Psychiatric: Present: mood/affect appropriate, cooperative - Lab 09/14/17 03:15 09/14/17 03:15 Most recent lab results Calcium 9.0 mg/dL (8.6-10.3) 09/14/17 03:15 Phosphorus 5.7 mg/dL (2.7-4.5) H 09/14/17 03:15 Magnesium 2.2 mg/dL (1.6-2.6) 09/13/17 11:39 Consult Discharge Plan - Plan Referrals: Landon Potts MD [Primary Care Provider] -
--- NOTE | 2017-09-15 16:51 | Internal Med Progress Note ---
Date of Encounter: 09/15/17 Time of Encounter: 11:15 - Assessment and plan (1) Generalized weakness Current Visit: Yes Status: Acute Assessment and plan: No etiology at this time; no source of infection- chest XRay no PNA, blood cultures negative, Influenza negative; TFTs normal ESR mildly elevated at 46; d/w Rheumatology- recommended to check CRP, low suspicion of PMR; CRP normal <5; Patient to be transferred back o [facility]CF for continued rehab; (2) GERD (gastroesophageal reflux disease) Current Visit: Yes Status: Chronic Qualifiers: Esophagitis presence: esophagitis presence not specified Qualified Code(s) : K21.9 - Gastro-esophageal reflux disease without esophagitis (3) HLD (hyperlipidemia) Current Visit: Yes Status: Chronic Qualifiers: Hyperlipidemia type: unspecified Qualified Code(s): E78.5 - Hyperlipidemia , unspecified (4) ESRD (end stage renal disease) Current Visit: Yes Status: Chronic Assessment and plan: Nephrology on board, HD yesterday via temporary HD femoral catheter due to AV fistula malfunction; continue home meds; plan for IR fistulogram on Sunday; (5) HTN (hypertension) Current Visit: Yes Status: Chronic Qualifiers: Hypertension type: essential hypertension Qualified Code(s): I10 - Essential (primary) hypertension - Time Spent With Patient Total time spent is greater than 50% in coordination of care (as documented) at patient's floor/unit and/or counseling patient: - Subjective Interval history: Feels somewhat better; no nausea, vomiting, chest pain, dyspnea; tolerates oral diet; improving weakness; AV fistula not working, received temporary femoral HD catheter; - Constitutional Vitals: Temp Pulse Resp BP Pulse Ox 98.3 F 68 17 111/64 97 09/15/17 16:02 09/15/17 16:02 09/15/17 16:02 09/15/17 16:02 09/15/17 16:02 General appearance: Present: A&O X 3, answers questions appropriately - Respiratory Respiratory exam: Present: CTAB. Absent: accessory muscle use, rales, rhonchi, wheezes - Cardiovascular Cardiovascular exam: Present: RRR, +S1, +S2. Absent: diastolic murmur, gallop, rubs, systolic murmur - GI/Abdominal GI/Abdominal exam: Present: normal bowel sounds, soft, no peritoneal signs. Absent: distended, tenderness Internal Medicine: Result - Labs CBC & Chem 7: 09/14/17 03:15 09/16/17 08:05 - ABG Interpretation ABG results: PT/INR, D-dimer PT 10.5 Seconds (9.4-12.1) 09/13/17 10:41 - Impressions Impressions KUB X-Ray 09/14/17 17:33 IMPRESSION: Right common femoral central venous catheter tip overlies the IVC. D/ / Eliot Hayden MD / Eliot Hayden MD Interpreting Provider: Eliot Hayden MD Consult Discharge Plan - Plan Referrals: Landon Potts MD [Primary Care Provider] -
[2017-09-15] MEDS: Gabapentin 300 MG CAPSULE PO SCH (21:49)
[2017-09-15] MEDS: Melatonin 3 MG TABLET PO SCH (21:49)
[2017-09-16] MEDS: Renal Vitamin 1 MG CAPSULE PO SCH (08:18)
[2017-09-16] MEDS: Aspirin Enteric Coated 81 MG Tablet PO SCH (08:18)
[2017-09-16] MEDS: Acetaminophen 325 MG TABLET PO PRN (08:20)
[2017-09-16 08:32] LABS: Calcium 9.1 mg/dL (8.6-10.3); Potassium 5.9 mEq/L (3.5-5.1)
[2017-09-16] MEDS ORDERED: Isovue-370 500 ML INFUS..BTL IV ONE (08:35)
--- NOTE | 2017-09-16 09:16 | Nephrology Progress Note ---
Date of Encounter: 09/16/17 Time of Encounter: 08:55 - Assessment and Plan (1) ESRD (end stage renal disease) on dialysis Current Visit: No Status: Chronic Consult IR for fistulogram of AVF tomorrow. Has temp right fem HD access. No HD today, keeping MWF schedule. Subjective Interval history: Laying in bed, pleasantly confused. Feeding self breakfast. Objective - Vital Signs Vital signs: Vital Signs Temp Pulse Resp BP Pulse Ox 09/16/17 07:03 97.5 F L 70 18 122/67 95 09/16/17 04:10 98.3 F 66 18 107/65 97 09/16/17 00:08 98.6 F 93 16 111/61 95 09/15/17 22:57 98.0 F 66 18 120/75 96 09/15/17 18:31 98.6 F 73 18 118/68 95 09/15/17 16:02 98.3 F 68 17 111/64 97 09/15/17 11:04 97.9 F 69 18 107/59 97 Intake and Output 09/15/17 09/16/17 09/16/17 23:59 07:59 15:59 Intake Total 240 / 240 0 / 0 360 / 360 Output Total 0 / 0 Balance 240 / 240 0 / 0 360 / 360 Intake: Oral 240 / 240 0 / 0 360 / 360 Output: Urine 0 / 0 Other: Meal Dinner Breakfast Percent of Meal Consumed 100% 100% # Voids 1 # Bowel Movements 1 Weight 67.222 kg Patient Weight 09/16/17 23:59 Weight 67.222 kg - General Appearance General appearance: Present: well-developed, well-nourished, appears started age EENT: Present: mucous membranes moist Neck: Present: no JVD Respiratory: Present: clear Cardiology: Present: edema, regular rate, regular rhythm Additional Comments: mild Gastrointestinal: Present: normoactive bowel sounds, no tenderness Integumentary: Present: warm and dry Psychiatric: Present: mood/affect appropriate, cooperative - Lab 09/14/17 03:15 09/16/17 08:05 Most recent lab results Calcium 9.1 mg/dL (8.6-10.3) 09/16/17 08:05 Phosphorus 5.7 mg/dL (2.7-4.5) H 09/14/17 03:15 Magnesium 2.2 mg/dL (1.6-2.6) 09/13/17 11:39 Consult Discharge Plan - Plan Referrals: Landon Potts MD [Primary Care Provider] -
--- NOTE | 2017-09-16 14:08 | Internal Med Progress Note ---
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; case d/w Neurology- recommend dual antiplatelet therapy and statin and preventive measures, no surgical intervention indicated as this is not a main artery; patient is on ASA and statin; add Plavix and check lipid profile; (2) Generalized weakness Current Visit: Yes Status: Acute Assessment and plan: No etiology at this time; no source of infection- chest XRay no PNA, blood cultures negative, Influenza negative; TFTs normal ESR mildly elevated at 46; d/w Rheumatology- recommended to check CRP, low suspicion of PMR; CRP normal <5; Patient to be transferred back o [facility] for continued rehab; (3) GERD (gastroesophageal reflux disease) Current Visit: Yes Status: Chronic Qualifiers: Esophagitis presence: esophagitis presence not specified Qualified Code(s) : K21.9 - Gastro-esophageal reflux disease without esophagitis (4) HLD (hyperlipidemia) Current Visit: Yes Status: Chronic Qualifiers: Hyperlipidemia type: unspecified Qualified Code(s): E78.5 - Hyperlipidemia , unspecified (5) ESRD (end stage renal disease) Current Visit: Yes Status: Chronic Assessment and plan: Nephrology on board, HD yesterday via temporary HD femoral catheter due to AV fistula malfunction; continue home meds; plan for IR fistulogram tomorrow; (6) HTN (hypertension) Current Visit: Yes Status: Chronic Qualifiers: Hypertension type: essential hypertension Qualified Code(s): I10 - Essential (primary) hypertension (7) Hyperkalemia Current Visit: Yes Status: Acute Assessment and plan: due to renal failure; not on ACEI or ARB; will give a dose of Kayexalate; HD in am; - Time Spent With Patient Total time spent is greater than 50% in coordination of care (as documented) at patient's floor/unit and/or counseling patient: - Subjective Interval history: Reports generalized weakness and intermittent blurred and double vision; no headache, slurred speech or facial droop; improved vision problems now; - Constitutional Vitals: Temp Pulse Resp BP Pulse Ox 97.6 F 63 16 129/65 96 09/16/17 11:36 09/16/17 11:36 09/16/17 11:36 09/16/17 11:36 09/16/17 11:36 General appearance: Present: A&O X 3, answers questions appropriately - Eye Eye exam: Present: EOMI, PERRL, conjuntiva pink, sclera anicteric Pupils: Present: PERRL - Respiratory Respiratory exam: Present: CTAB. Absent: accessory muscle use, rales, rhonchi, wheezes - Cardiovascular Cardiovascular exam: Present: RRR, +S1, +S2. Absent: diastolic murmur, gallop, rubs, systolic murmur - GI/Abdominal GI/Abdominal exam: Present: normal bowel sounds, soft, no peritoneal signs. Absent: distended, tenderness Internal Medicine: Result - Labs CBC & Chem 7: 09/14/17 03:15 09/16/17 08:05 Labs: BMP 09/16/17 08:05 Sodium 128 L Potassium 5.9 H Chloride 91 L Carbon Dioxide 26 BUN 65 H Creatinine 6.70 H Glucose 80 Calcium 9.1 - ABG Interpretation ABG results: PT/INR, D-dimer PT 10.5 Seconds (9.4-12.1) 09/13/17 10:41 - Impressions Impressions Head CTA 09/16/17 08:35 IMPRESSION: 1. 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 2. Otherwise unremarkable CTA of the head and neck. 3. No acute intracranial abnormality. 4. Cerebral and cerebellar parenchymal volume loss with chronic microvascular white matter ischemic disease. 5. 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 These can be seen dating back to a head CT on 12/27/2015, chronic. 6. Acute on chronic right frontal sinusitis. D/ / 09/16/2017 11:39:51 Dawit Alanis MD / darlyn Interpreting Provider: Dawit Alanis MD Neck CTA 09/16/17 08:35 IMPRESSION: 1. 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 2. Otherwise unremarkable CTA of the head and neck. 3. No acute intracranial abnormality. 4. Cerebral and cerebellar parenchymal volume loss with chronic microvascular white matter ischemic disease. 5. 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 These can be seen dating back to a head CT on 12/27/2015, chronic. 6. Acute on chronic right frontal sinusitis. D/ / 09/16/2017 11:39:51 Dawit Alanis MD / darlyn Interpreting Provider: Dawit Alanis MD Consult Discharge Plan - Plan Referrals: Landon Potts MD [Primary Care Provider] -
--- NOTE | 2017-09-16 21:07 | Electrocardiograph Report ---
[place] [id number] Test Date: 2017-09-13 Pat Name: Glory Lynne Department: 102 Room: 2A43 Gender: F [employer] Attendant: : 1930 Requested By: John Galvin Order Number: [id number] Reading MD: Sanjeev Pryor Measurements Intervals [place] Rate: 69 P: 31 NC: 176 QRS: -7 QRSD: 91 T: 51 QT: 448 QTc: 467 Interpretive Statements SINUS RHYTHM Electronically Signed On 09-16-2017 21:05:47 EDT by Sanjeev Pryor
[2017-09-16] MEDS: Melatonin 3 MG TABLET PO SCH (21:30)
[2017-09-16] MEDS: Gabapentin 300 MG CAPSULE PO SCH (21:30)
[2017-09-17 05:30] LABS: Albumin 2.9 g/dL (3.5-5.7); Calcium 8.3 mg/dL (8.6-10.3); Chol/HDL Ratio 3.1 (0-4.9); Phosphorous 6.5 mg/dL (2.7-4.5); Potassium 5.4 mEq/L (3.5-5.1)
[2017-09-17] MEDS: Aspirin Enteric Coated 81 MG Tablet PO SCH (07:40)
[2017-09-17] MEDS: Renal Vitamin 1 MG CAPSULE PO SCH (07:40)
[2017-09-17] MEDS ORDERED: 0.9 % Sodium Chloride 250 ML IVC PRN (09:09)
[2017-09-17] MEDS ORDERED: *HR* Heparin 10,000 UNIT/10 ML VIAL IV PRN (09:09)
[2017-09-17] MEDS ORDERED: 0.9 % Sodium Chloride 1,000 ML PRIME SCH (09:15)
--- NOTE | 2017-09-17 10:01 | Nephrology Progress Note ---
Date of Encounter: 09/17/17 Time of Encounter: 09:45 - Assessment and Plan (1) ESRD (end stage renal disease) on dialysis Current Visit: No Status: Chronic Consulted IR for fistulogram. Has temp right fem HD access. HD today, keeping MWF schedule. Orders given. Subjective Interval history: Laying in bed, continues to complain of blurred vision. Objective - Vital Signs Vital signs: Vital Signs Temp Pulse Resp BP Pulse Ox 09/17/17 07:03 97.4 F L 68 16 132/74 97 09/17/17 03:43 97.3 F L 66 16 109/67 97 09/16/17 23:21 97.4 F L 62 16 123/62 95 09/16/17 19:12 97.5 F L 70 17 114/51 96 09/16/17 15:10 97.7 F 66 16 143/71 97 09/16/17 11:36 97.6 F 63 16 129/65 96 Intake and Output 09/16/17 09/17/17 09/17/17 23:59 07:59 15:59 Intake Total 500 / 500 0 / 0 Output Total 150 / 150 Balance 350 / 350 0 / 0 Intake: Oral 500 / 500 0 / 0 Output: Urine 150 / 150 Other: Meal NPO Percent of Meal Consumed 0% Stool Size Smear Weight 68 kg Patient Weight 09/17/17 23:59 Weight 68 kg - General Appearance General appearance: Present: well-developed, well-nourished, appears started age EENT: Present: mucous membranes moist Neck: Present: no JVD Respiratory: Present: clear Cardiology: Present: no edema, regular rate, regular rhythm Dialysis Vascular Access: Venous Catheter Additional Comments: right fem Gastrointestinal: Present: normoactive bowel sounds, no tenderness Integumentary: Present: warm and dry Psychiatric: Present: mood/affect appropriate, cooperative - Lab 09/14/17 03:15 09/17/17 04:48 Most recent lab results Calcium 8.3 mg/dL (8.6-10.3) L 09/17/17 04:48 Phosphorus 6.5 mg/dL (2.7-4.5) H 09/17/17 04:48 Magnesium 2.2 mg/dL (1.6-2.6) 09/13/17 11:39 - VTE Documentation of Mechanical Device: Intermittent pneumatic compression device Consult Discharge Plan - Plan Referrals: Landon Potts MD [Primary Care Provider] -
[2017-09-17] MEDS ORDERED: 0.9 % Sodium Chloride 1,000 ML ONE (10:39)
--- NOTE | 2017-09-17 14:57 | Discharge Summary ---
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 Qualifiers: Encounter type: sequela Qualified Code(s): T82.868S - Thrombosis due to vascular prosthetic devices, implants and grafts, sequela (2) Blurred vision, bilateral Priority: Primary Status: Acute (3) Generalized weakness Priority: Primary Status: Acute (4) GERD (gastroesophageal reflux disease) Priority: Secondary Status: Chronic Qualifiers: Esophagitis presence: esophagitis presence not specified Qualified Code(s) : K21.9 - Gastro-esophageal reflux disease without esophagitis (5) HLD (hyperlipidemia) Priority: Secondary Status: Chronic Qualifiers: Hyperlipidemia type: unspecified Qualified Code(s): E78.5 - Hyperlipidemia , unspecified (6) ESRD (end stage renal disease) Priority: Secondary Status: Chronic (7) HTN (hypertension) Priority: Secondary Status: Chronic Qualifiers: Hypertension type: essential hypertension Qualified Code(s): I10 - Essential (primary) hypertension (8) Hyperkalemia Priority: Primary Status: Acute Hospital course: Ms. Lynne is a 86 year old female long-term intermediate resident, who was admitted with generalized weakness and lack of energy. Initial labs showed no acute abnormality. Chest x-ray showed no evidence of pneumonia. Blood cultures remained negative. Influenza antigen negative. No other evidence of infection. Thyroid profile normal. Case was discussed with rheumatology, very low suspicion for polymyalgia rheumatica as patient is noted to have normal strength in bilateral extremities on all objective assessment. Recommended to check CRP, which is normal. She has been medically stable for discharge. Nephrology was consulted and noted to have left arm AV fistula malfunction. She received hemodialysis via temporary femoral HD catheter. IR has been consulted for fistulogram and possible angioplasty and patient is stable for transfer back to intermediate after the procedure. Patient also reported intermittent episodes of blurred/double vision since admission. Initial CT head in the emergency room showed no acute stroke. 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 Case was discussed with neurology, no surgery was indicated as it was not major vessel stenosis. Preventive measures were recommended, patient was noted to be on aspirin and statin and is now also being discharged on Plavix. Recommended outpatient neurology follow-up. Discharge discussed with: patient, sr solutions consultant - Time Spent with Patient Total time spent providing and/or coordinating discharge services: Greater than 30 minutes (45 min) - Discharge Medications Prescriptions: Clopidogrel [Plavix] 75 mg PO DAILY #30 tablet Home Medications: Docusate [Colace] 100 mg PO BID PRN 08/30/16 [History] Famotidine [Pepcid] 20 mg PO HS 08/30/16 [History] Loratadine [Claritin] 10 mg PO DAILY 08/30/16 [History] Melatonin 5 mg PO HS 08/30/16 [History] Pantoprazole Sodium [Protonix] 40 mg PO DAILY 08/30/16 [History] Renal Vitamin [Renal Caps Softgel] 1 mg PO DAILY 08/30/16 [History] Trospium Chloride 20 mg PO HS 08/30/16 [History] Zinc Sulfate 220 mg PO DAILY 08/30/16 [History] Acetaminophen [Tylenol] 650 mg PO Q6HR PRN #120 tab 12/14/16 [Rx] Aspirin Enteric Coated [Aspirin EC] 81 mg PO DAILY #30 tab 12/14/16 [Rx] Ammonium Lactate 1 appl TP AD PRN 05/07/17 [History] Acetaminophen/Butalbital/Caffe [Fioricet] 1 tab PO DAILY PRN #10 05/09/17 [Rx] Atorvastatin [Lipitor] 10 mg PO HS 09/13/17 [History] Sevelamer HCl [Renagel] 800 mg PO TID 09/13/17 [History] Clopidogrel [Plavix] 75 mg PO DAILY #30 tablet 09/17/17 [Rx] Gabapentin [Neurontin] 300 mg PO HS #5 09/17/17 [Rx] Allergies/Adverse Reactions: 3 Allergy/AdvReac Type Severity Reaction Status Date / Time Erythromycin Base Allergy See Verified 09/13/17 12:43 Comments Penicillins Allergy See Verified 09/13/17 12:43 Comments menthol [From BenGay] AdvReac Rash Verified 09/13/17 12:43 methyl salicylate AdvReac Rash Verified 09/13/17 12:43 [From BenGay] Sulfa (Sulfonamide AdvReac See Verified 09/13/17 12:43 Antibiotics) Comments Date of admission: 09/13/17 12:24 Primary care physician: Landon Potts MD Consults: 09/14/17 09:09 Consult to [place] Floor Desk Clerk [CONS] Routine Reason for SW Consult: rtn signature 09/14/17 10:30 Consult to Dialysis [CONS] ONCE 09/14/17 15:17 Consult to Interventional Radiology [CONS] Stat Consulting Provider: Radiology Interventional Cols Reason for Consult: fistulagram and thrombectomy left fistula Time Notified: 15:20 Call Completed: Yes 09/16/17 09:16 Consult to Interventional Radiology [CONS] Routine Consulting Provider: Radiology Interventional Cols Reason for Consult: Fistulogram AVF tomorrow 09/17 Time Notified: 09:17 Call Completed: No 09/17/17 09:15 Consult to Dialysis [CONS] ONCE Discharging clinician: Kathy Jarrell Anticipated date of discharge: 09/17/17 - Constitutional Vitals: Temp Pulse Resp BP Pulse Ox 97.8 F 68 16 107/78 97 09/17/17 13:40 09/17/17 07:03 09/17/17 13:40 09/17/17 13:40 09/17/17 07:03 General appearance: Present: A&O X 2 (does not remember appropriately), answers questions appropriately - Cardiovascular Cardiovascular exam: Present: RRR, +S1, +S2. Absent: diastolic murmur, gallop, rubs, systolic murmur - Patient Status Disposition: Transfer SNF Condition: Good Functional capacity at discharge: uses cane/walker Overall status at discharge: patient is progressing back to baseline - Discharge Instructions Follow Up With: Landon Potts MD [Primary Care Provider] - Additional Instructions: F/up with PCP in 1-2 weeks F/up with Neurology in 3-4 weeks F/up for HD 3 times/week- MWF - Diet and Activity Activity: as per physical therapy Diet: low fat, low cholesterol, low salt diet, other (renal diet) - VTE Documentation of Mechanical Device: Intermittent pneumatic compression device
--- NOTE | 2017-09-17 14:59 | Physician Discharge Referral ---
ExtendedCare Referral Info Transfer To: [facility] Provider in Charge: Kathy Jarrell Provider in Charge after Transfer: PCP Institutional Level of Care: Skilled - Diagnosis (1) AV fistula thrombosis Priority: Primary Status: Acute (2) Blurred vision, bilateral Priority: Primary Status: Acute (3) Generalized weakness Priority: Primary Status: Acute (4) GERD (gastroesophageal reflux disease) Priority: Secondary Status: Chronic (5) HLD (hyperlipidemia) Priority: Secondary Status: Chronic (6) ESRD (end stage renal disease) Priority: Secondary Status: Chronic (7) HTN (hypertension) Priority: Secondary Status: Chronic (8) Hyperkalemia Priority: Primary Status: Acute Expected Duration of Placement: [facility] Prognosis: Fair Aware of Diagnosis: Patient - Transfer Medications Home Medications: Docusate [Colace] 100 mg PO BID PRN 08/30/16 [History] Famotidine [Pepcid] 20 mg PO HS 08/30/16 [History] Loratadine [Claritin] 10 mg PO DAILY 08/30/16 [History] Melatonin 5 mg PO HS 08/30/16 [History] Pantoprazole Sodium [Protonix] 40 mg PO DAILY 08/30/16 [History] Renal Vitamin [Renal Caps Softgel] 1 mg PO DAILY 08/30/16 [History] Trospium Chloride 20 mg PO HS 08/30/16 [History] Zinc Sulfate 220 mg PO DAILY 08/30/16 [History] Acetaminophen [Tylenol] 650 mg PO Q6HR PRN #120 tab 12/14/16 [Rx] Aspirin Enteric Coated [Aspirin EC] 81 mg PO DAILY #30 tab 12/14/16 [Rx] Ammonium Lactate 1 appl TP AD PRN 05/07/17 [History] Acetaminophen/Butalbital/Caffe [Fioricet] 1 tab PO DAILY PRN #10 05/09/17 [Rx] HYDROcodone/Acet 5/325 mg [Cary 5-325 mg] 1 tab PO DAILY PRN 10 Days #5 [Rx] Atorvastatin [Lipitor] 10 mg PO HS 09/13/17 [History] Gabapentin [Neurontin] 300 mg PO HS 09/13/17 [History] Sevelamer HCl [Renagel] 800 mg PO TID 09/13/17 [History] Allergies/Adverse Reactions: 3 Allergy/AdvReac Type Severity Reaction Status Date / Time Erythromycin Base Allergy See Verified 09/13/17 12:43 Comments Penicillins Allergy See Verified 09/13/17 12:43 Comments menthol [From BenGay] AdvReac Rash Verified 09/13/17 12:43 methyl salicylate AdvReac Rash Verified 09/13/17 12:43 [From BenGay] Sulfa (Sulfonamide AdvReac See Verified 09/13/17 12:43 Antibiotics) Comments - Respiratory Orders Smoking Cessation: Smoking cessation has been advised. For more information, call the [place] Tobacco Quit Line at 1-301-SDUJ-NOW. - Advance Directives Code Status: Full Code - Mobility Orders Ambulate - Rehabiliation Orders Rehab Potential: Fair Rehab Orders: Sternal Precautions, ROM Exercises, Evaluation for Physical Therapy, Evaluation for Occupational Therapy - Diet Orders No Added Salt (RAMU), Renal, Cardiac CERTIFICATION: I certify that the transfer of the above named patient to an Extended Care Facility is necessary for the continuing treatment of the diagnosis listed. The above information is true and accurate reflection of patient's current condition. Confidential - Redisclosure prohibited without a patient's written consent.
[2017-09-17 15:59] LABS: Calcium 8.5 mg/dL (8.6-10.3); Potassium 3.8 mEq/L (3.5-5.1)
[2017-09-17 16:49] LABS: Eosinophils # 0.1 K/mcL (0.0-0.6); Eosinophils % 2.9 %; Hematocrit 28.4 % (35.3-44.9); Hemoglobin 9.6 g/dL (11.5-15.4); Immature Granulocytes % 0.8 % (0-4); Lymphocytes # 0.8 K/mcL (0.6-4.6); Lymphocytes % 20.4 %; Mean Corpuscular HGB Conc 33.8 g/dL (31.6-35.5); Mean Corpuscular Volume 91.6 fL (83.0-100.0); Monocytes # 0.3 K/mcL (0.0-1.3); Monocytes % 8.1 %; Neutrophils # 2.6 K/mcL (1.6-8.9); Platelet Count 204 K/mcL (140-400); Red Cell Distribution Width 14.6 % (11.5-14.5); Segmented Neutrophils % 66.8 %
[2017-09-17] MEDS: Gabapentin 300 MG CAPSULE PO SCH (21:02)
[2017-09-17] MEDS: Melatonin 3 MG TABLET PO SCH (21:02)
--- NOTE | 2017-09-18 08:03 | Nephrology Progress Note ---
Date of Encounter: 09/18/17 Time of Encounter: 08:02 - Assessment and Plan (1) ESRD (end stage renal disease) on dialysis Current Visit: No Status: Chronic Patient has end-stage renal disease. She has a thrombosed left arm AV graft. Currently she is dialyzing through a temporary dialysis catheter. Last dialysis was yesterday. I believe she is scheduled to undergo thrombectomy later today. (2) AV graft thrombosis Current Visit: Yes Status: Acute Qualifiers: Encounter type: initial encounter Qualified Code(s): T82.868A - Thrombosis due to vascular prosthetic devices, implants and grafts, initial encounter (3) Confusion and disorientation Current Visit: No Status: Acute Subjective Interval history: Patient is resting comfortably. She voices no new complaints. Vital signs are stable. Objective - Vital Signs Vital signs: Vital Signs Temp Pulse Resp BP Pulse Ox 09/18/17 07:05 97.7 F 76 18 129/64 92 09/18/17 04:53 97.7 F 70 16 126/70 95 09/17/17 23:37 98.1 F 64 16 116/70 98 09/17/17 19:27 98.4 F 69 16 110/66 99 09/17/17 15:56 98.7 F 66 16 125/75 95 09/17/17 13:40 97.8 F 16 107/78 09/17/17 13:30 97/45 09/17/17 13:15 110/47 09/17/17 13:00 102/51 09/17/17 12:45 107/48 09/17/17 12:30 103/58 09/17/17 12:15 106/51 09/17/17 12:00 97/54 09/17/17 11:45 103/53 09/17/17 11:30 112/55 09/17/17 11:15 109/50 09/17/17 11:00 114/54 09/17/17 10:45 125/59 09/17/17 10:30 97.0 F L 17 120/56 Intake and Output 09/17/17 09/18/17 09/18/17 23:59 07:59 15:59 Intake Total 680 / 680 0 / 0 Balance 680 / 680 0 / 0 Intake: Oral 680 / 680 0 / 0 Other: Meal 2 dry frosted flakes Percent of Meal Consumed 100% Stool Size Large Stool Consistency soft formed Stool Characteristics Normal for Patient Stool Color Brown # Voids 1 # Bowel Movements 1 Weight 83.3 kg Patient Weight 09/18/17 23:59 Weight 83.3 kg - General Appearance Exam: Patient is in no acute distress. Lung sounds otherwise clear. Heart regular rate and rhythm with a 2/6 talk ejection murmur. Abdomen is benign. There is no lower extremity swelling. There is a thrombosed AV graft in the left upper extremity. - Lab 09/17/17 14:29 09/17/17 14:29 Most recent lab results Calcium 8.5 mg/dL (8.6-10.3) L 09/17/17 14:29 Phosphorus 6.5 mg/dL (2.7-4.5) H 09/17/17 04:48 Magnesium 2.2 mg/dL (1.6-2.6) 09/13/17 11:39 - VTE Documentation of Mechanical Device: Intermittent pneumatic compression device Consult Discharge Plan - Plan Additional Instructions: F/up with PCP in 1-2 weeks F/up with Neurology in 3-4 weeks F/up for HD 3 times/week- MWF Referrals: Landon Potts MD [Primary Care Provider] - Prescriptions: Clopidogrel [Plavix] 75 mg PO DAILY #30 tablet
[2017-09-18] MEDS ORDERED: Darbepoetin 100 MCG/0.5 ML SYRINGE SQ SCH (08:15)
[2017-09-18] MEDS: Aspirin Enteric Coated 81 MG Tablet PO SCH (08:48)
[2017-09-18] MEDS: Renal Vitamin 1 MG CAPSULE PO SCH (08:49)
[2017-09-18] MEDS ORDERED: Heparin 1,000 UNITS/500 mL 500 ML ONE (10:58)
[2017-09-18] MEDS ORDERED: 0.9 % Sodium Chloride 500 ML ONE ×2 (10:59→12:59)
[2017-09-18] MEDS ORDERED: *HR* Heparin 5,000 UNIT/ML VIAL IVP ONE (12:00)
[2017-09-18] MEDS ORDERED: *HR* Alteplase (Cathflo) 2 MG VIAL IVP ONE (12:00)
[2017-09-18] MEDS ORDERED: *HR* Heparin 5,000 UNIT/ML VIAL ONE (12:05)
[2017-09-18] MEDS ORDERED: *HR* FentaNYL (PF) 100 MCG/2 ML VIAL IVP ONE (13:12)
[2017-09-18] MEDS ORDERED: *HR* Midazolam HCl 2 MG/2 ML VIAL IVP ONE (13:13)
[2017-09-18 15:50] LABS: Hematocrit 28.8 % (35.3-44.9); Hemoglobin 9.5 g/dL (11.5-15.4)
[2017-09-18] MEDS: Acetaminophen 325 MG TABLET PO PRN (17:57)
--- NOTE | 2017-09-18 20:49 | Internal Med Progress Note ---
Date of Encounter: 09/18/17 Time of Encounter: 20:49 - Assessment and plan (1) Generalized weakness Status: Acute (2) ESRD (end stage renal disease) on dialysis Status: Chronic (3) AV fistula thrombosis Status: Acute Qualifiers: Encounter type: sequela Qualified Code(s): T82.868S - Thrombosis due to vascular prosthetic devices, implants and grafts, sequela (4) GERD (gastroesophageal reflux disease) Status: Chronic Qualifiers: Esophagitis presence: esophagitis presence not specified Qualified Code(s) : K21.9 - Gastro-esophageal reflux disease without esophagitis - Time Spent With Patient Total time spent is greater than 50% in coordination of care (as documented) at patient's floor/unit and/or counseling patient: 25 - 35 minutes - Subjective Interval history: .. The patient feels good. She underwent surgery for opening thrombosed arteriovenous fistula on her left arm today.She developed some bleeding there. Otherwise, she feels good. Denies chest pain, difficulty breathing and coughing /wheezing. She has normal appetite. He denies abdominal pain, nausea and vomiting. She gets hemodialysis. OBJECTIVE: .. Constitutional: See below. Skin: Free of rash and discoloration. There is a surgical dressing applied to left antecubital area. It seems to be soaked with blood. ENMT: Oral/pharyngeal mucosa is normal in appearance. Eyes: Sclera is white. There is no discharge from eyes. Respiratory: Normal breath sounds; no crackles or wheezes. CV: Heart is regular; no gallop or murmur. GI: Abdomen is soft and not tender. There is no palpable mass or visceromegaly. Neuro: There is no focal deficits. ASSESSMENT AND PLAN: .. Generalized weakness. Multifactorial. It is mostly due to her end-stage renal disease. She will go to ECF, as soon as a bed is available. End-stage renal disease/thrombosed AV fistula. The fistula has been opened by the surgery. She developed some bleeding. The repeated hemoglobin is 9.5. GERD. Under control. We will continue Prilosec. NOTES: We will repeat CBC in the morning. Tentative discharge to ECF tomorrow. Her discharge summary was reported by Dr. Godfrey yesterday. - Constitutional Vitals: Temp Pulse Resp BP Pulse Ox 97.5 F L 70 16 112/62 99 09/18/17 18:39 09/18/17 18:39 09/18/17 18:39 09/18/17 18:39 09/18/17 18:39 General appearance: Present: A&O X 2 (does not remember appropriately), answers questions appropriately Internal Medicine: Result - Labs CBC & Chem 7: 09/19/17 04:42 09/19/17 04:42 Labs: Short CBC 09/18/17 Range/Units 15:40 Hgb 9.5 L (11.5-15.4) g/dL Hct 28.8 L (35.3-44.9) % - ABG Interpretation ABG results: PT/INR, D-dimer PT 10.5 Seconds (9.4-12.1) 09/13/17 10:41 - Impressions Impressions AV Shunt Angiogram 09/18/17 00:00 IMPRESSION: Venous anastomotic stenosis-successful DRILLER BRAKE LINING with good angiographic result. Arterial anastomotic stenosis angioplasty with a 5 mm balloon with non flow limiting residual filling defect which may represent residual thrombus or debris. If re- thrombosis occurs, surgical revision may be required. Successful mechanical and pharmacological thrombolysis of the patient's left upper arm shunt D/ / Emmanuel Varela MD / Emmanuel Varela MD Interpreting Provider: Emmanuel Varela MD - VTE Documentation of Mechanical Device: Intermittent pneumatic compression device Consult Discharge Plan - Plan Instructions: Acute Delirium (DC), Weakness (GEN), Fall Prevention (DC) Additional Instructions: F/up with PCP in 1-2 weeks F/up with Neurology in 3-4 weeks F/up for HD 3 times/week- MWF Referrals: Landon Potts MD [Primary Care Provider] - Majo Kruger MD [Partnered Physician] - 10/16/17 12:30 pm (please follow up as schedule.. ) Prescriptions: Clopidogrel [Plavix] 75 mg PO DAILY #30 tablet
[2017-09-18] MEDS: Melatonin 3 MG TABLET PO SCH (21:58)
[2017-09-18] MEDS: Gabapentin 300 MG CAPSULE PO SCH (21:58)
[2017-09-19 05:11] LABS: Basophils % 0.5 %; Eosinophils # 0.2 K/mcL (0.0-0.6); Eosinophils % 2.4 %; Hematocrit 26.8 % (35.3-44.9); Hemoglobin 9.1 g/dL (11.5-15.4); Immature Granulocytes % 1.1 % (0-4); Immature Platelets 3.4 % (1.1-6.1); Lymphocytes % 16.5 %; Mean Corpuscular Hemoglobin 31.8 pg (28.0-33.3); Mean Corpuscular Volume 93.7 fL (83.0-100.0); Mean Platelet Volume 10.4 fL (9.4-12.4); Monocytes # 0.9 K/mcL (0.0-1.3); Monocytes % 9.8 %; Neutrophils # 6.1 K/mcL (1.6-8.9); Platelet Count 194 K/mcL (140-400); Red Blood Count 2.86 M/mcL (3.82-4.97); Red Cell Distribution Width 14.6 % (11.5-14.5); Segmented Neutrophils % 69.7 %
[2017-09-19 05:14] LABS: Lymphocytes # 1.5 K/mcL (0.6-4.6)
[2017-09-19 05:28] LABS: Albumin 2.9 g/dL (3.5-5.7); Albumin/Globulin Ratio 1.1 (1.1-2.2); Bilirubin,Total 0.4 mg/dL (0.3-1.0); Calcium 8.5 mg/dL (8.6-10.3); Globulin 2.6 g/dL (2.4-3.5); Potassium 5.2 mEq/L (3.5-5.1); Total Protein 5.5 g/dL (6.4-8.9)
[2017-09-19] MEDS: Renal Vitamin 1 MG CAPSULE PO SCH (08:25)
[2017-09-19] MEDS: Aspirin Enteric Coated 81 MG Tablet PO SCH (08:25)
[2017-09-19] MEDS ORDERED: 0.9 % Sodium Chloride 1,000 ML ONE (08:27)
[2017-09-19] MEDS ORDERED: 0.9 % Sodium Chloride 250 ML IVC PRN (09:36)
--- NOTE | 2017-09-19 11:07 | Nephrology Progress Note ---
Date of Encounter: 09/19/17 Time of Encounter: 10:30 - Assessment and Plan (1) ESRD (end stage renal disease) on dialysis Current Visit: No Status: Chronic HD today, keeping MWF schedule. Orders given. Subjective Interval history: Seen on HD. S/P thrombectomy left AV graft. +bruit Objective - Vital Signs Vital signs: Vital Signs Temp Pulse Resp BP Pulse Ox 09/19/17 06:39 97.9 F 76 18 126/66 97 09/19/17 04:10 98.0 F 74 16 136/65 98 09/18/17 23:54 97.5 F L 68 15 150/64 97 09/18/17 18:39 97.5 F L 70 16 112/62 99 09/18/17 15:36 97.4 F L 68 16 135/71 99 09/18/17 14:06 75 13 128/62 100 09/18/17 13:57 73 13 129/59 99 09/18/17 13:46 77 17 132/65 94 09/18/17 13:37 76 23 134/59 95 09/18/17 13:26 76 15 124/61 95 09/18/17 13:16 67 15 136/66 95 09/18/17 13:03 67 15 138/60 97 Intake and Output 09/18/17 09/19/17 09/19/17 23:59 07:59 15:59 Other: Meal Dinner Percent of Meal Consumed 80% Weight 83.8 kg Blood Glucose* 127 - General Appearance General appearance: Present: well-developed, well-nourished, appears started age EENT: Present: mucous membranes moist Neck: Present: no JVD Respiratory: Present: clear Cardiology: Present: no edema, regular rate, regular rhythm Dialysis Vascular Access: Arteriovenous Graft thrill: Yes bruit: Yes Gastrointestinal: Present: normoactive bowel sounds, no tenderness Integumentary: Present: warm and dry Psychiatric: Present: mood/affect appropriate, cooperative - Lab 09/19/17 04:42 09/19/17 04:42 Most recent lab results Calcium 8.5 mg/dL (8.6-10.3) L 09/19/17 04:42 Phosphorus 6.5 mg/dL (2.7-4.5) H 09/17/17 04:48 Magnesium 2.2 mg/dL (1.6-2.6) 09/13/17 11:39 - VTE Documentation of Mechanical Device: Intermittent pneumatic compression device Consult Discharge Plan - Plan Additional Instructions: F/up with PCP in 1-2 weeks F/up with Neurology in 3-4 weeks F/up for HD 3 times/week- MWF Referrals: Landon Potts MD [Primary Care Provider] - Majo Kruger MD [Partnered Physician] - 10/16/17 12:30 pm (please follow up as schedule.. ) Prescriptions: Clopidogrel [Plavix] 75 mg PO DAILY #30 tablet
[2017-09-19 17:20] VITALS: BP 106/54
--- NOTE | 2017-09-25 22:13 | Internal Med Progress Note ---
Date of Encounter: 09/19/17 Time of Encounter: 17:00 - Assessment and plan (1) Generalized weakness Status: Acute (2) ESRD (end stage renal disease) on dialysis Status: Chronic (3) AV fistula thrombosis Status: Acute Qualifiers: Encounter type: sequela Qualified Code(s): T82.868S - Thrombosis due to vascular prosthetic devices, implants and grafts, sequela (4) GERD (gastroesophageal reflux disease) Status: Chronic Qualifiers: Esophagitis presence: esophagitis presence not specified Qualified Code(s) : K21.9 - Gastro-esophageal reflux disease without esophagitis - Time Spent With Patient Total time spent is greater than 50% in coordination of care (as documented) at patient's floor/unit and/or counseling patient: - Subjective Interval history: .. The patient feels good. She underwent surgery for opening thrombosed arteriovenous fistula on her left arm yesterday. She developed some bleeding there. It is not present today. Otherwise, she feels good. Denies chest pain , difficulty breathing and coughing/wheezing. She has normal appetite. He denies abdominal pain, nausea and vomiting. She gets hemodialysis. OBJECTIVE: .. Constitutional: See below. Skin: Free of rash and discoloration. There is a surgical dressing applied to left antecubital area. It is clean/intact. ENMT: Oral/pharyngeal mucosa is normal in appearance. Eyes: Sclera is white. There is no discharge from eyes. Respiratory: Normal breath sounds; no crackles or wheezes. CV: Heart is regular; no gallop or murmur. GI: Abdomen is soft and not tender. There is no palpable mass or visceromegaly. Neuro: There is no focal deficits. ASSESSMENT AND PLAN: .. Generalized weakness. Multifactorial. It is mostly due to her end-stage renal disease. She will go to ECF today. End-stage renal disease/thrombosed AV fistula. The fistula has been opened by the surgery. Her hemoglobin from today is 9.1; 9.6 2 days ago. GERD. Under control. We will continue Prilosec. Her discharge summary was reported by Dr. Godfrey 2 days ago. - Constitutional Vitals: Temp Pulse Resp BP Pulse Ox 98 F 72 20 106/54 99 09/19/17 17:17 09/19/17 17:17 09/19/17 17:17 09/19/17 17:17 09/19/17 17:17 General appearance: Present: A&O X 2 (does not remember appropriately), answers questions appropriately Internal Medicine: Result - Labs CBC & Chem 7: 09/19/17 04:42 09/19/17 04:42 - ABG Interpretation ABG results: PT/INR, D-dimer PT 10.5 Seconds (9.4-12.1) 09/13/17 10:41 - VTE Documentation of Mechanical Device: Intermittent pneumatic compression device Consult Discharge Plan - Plan Instructions: Acute Delirium (DC), Weakness (GEN), Fall Prevention (DC) Additional Instructions: F/up with PCP in 1-2 weeks F/up with Neurology in 3-4 weeks F/up for HD 3 times/week- [facility] Referrals: Landon Potts MD [Primary Care Provider] - Majo Kruger MD [Partnered Physician] - 10/16/17 12:30 pm (please follow up as schedule.. ) Prescriptions: Clopidogrel [Plavix] 75 mg PO DAILY #30 tablet
== END 2017-09-19 18:40 ==
LOC: EMEROO 10:11 → 2ANU 10:11 → SUATTDRO 12:24 → 2ANU 13:21
PROVIDERS: ADMIT Family Medicine; ATTEND Internal Medicine